=== PATIENT | female | born 2000 | race Caucasian/White ===

== ENCOUNTER 2023-09-18 13:49 | Emergency (ER) | payer MEDICAID, SELFPAY ==
[2023-09-18 13:51] VITALS: BP 128/79; PULSE 90; RESP 20; TEMP 36.5; O2SAT 96
[2023-09-18 13:59] VITALS: TEMP 37
--- NOTE | 2023-09-18 14:04 | W.ED.GENAD ---
Discharge Plan Disposition Patient Disposition: Home Discharge Details Clinical Impression: Pneumonia Primary Care Provider: Unknown,Unknown ED Provider: Jay Herrera Home Meds and New Rx's Prescriptions: New amoxicillin-pot clavulanate 875-125 mg tablet 1 tab PO BID 5 Days Qty: 10 0RF azithromycin 250 mg tablet See Rx Instructions .ROUTE .COMPLEX Qty: 6 0RF Rx Instructions: For 250 mg dose pack: take 500 mg today (day 1), then 250 mg for 4 days (days 2-5) ondansetron 4 mg tablet,disintegrating 4 mg PO Q8H PRN (Reason: nausea/vomiting) Qty: 14 0RF albuterol sulfate 90 mcg/actuation HFA aerosol inhaler 2 puff inhalation QID PRN (Reason: wheezing) Qty: 6.7 0RF No Action [id number] 1 mg tablet PO Discharge Instructions Instructions: Albuterol (By breathing), Amoxicillin/Clavulanate Potassium (By mouth), Azithromycin (By mouth), Ondansetron (By mouth), Pneumonia (ED) Additional Instructions: You were seen in the emergency department for your productive cough for over a week with some wheezing. I am treating you empirically for pneumonia with your productive cough, I have sent 2 different antibiotics Augmentin and azithromycin to take for 5 days, have also sent to nausea tablets 2-3 times per day have also sent showed inhaler to use for your wheezing. Please follow-up with your primary care provider, return to the emergency department for any increasing fever, cough, shortness of breath or respiratory distress despite treatment. Referrals: [facility] [Provider Group] (to establish primary care) [facility] [Provider Group] (to establish primary care) [facility] [place] Discharge Data Discharge Date/Time-TO BE ENTERED AT DEPARTURE: 09/18/23 15:50 Medical Decision Making This dictation utilizes [id number]-hb-ldgc dictation software and may contain unedited grammatical errors. 23 y/o F presents to ED today with a chief complaint of productive cough, wheezing. Onset and characteristics include 2 weeks of respiratory illness, denies severe shortness of breath, is a smoker, had one episode nausea/vomiting. Patients' medical history: tobacco use, denies asthma history. Family and social history: current smoker trying to cut back. Pertinent exam findings / vital signs include diffuse wheezing without hypoxia, no fever, nontachycardic on arrival- mild tachycardia at discharge but just completed 6mL albuterol nebulizer. Differential / pathologies of concern include pneumonia, bronchitis, asthma, not sepsis, not hypoxemic respiratory failure, not PE. Diagnostic studies of: -basic labs, hCG quant - held CXR as patient is . -leukocytosis, WBCs 16 Interventions of: -outpatient Rx trial after discussion with patients preferences and goals of treatment. -6mL duoneb ED Course: 2-week onset of respiratory infection with a productive cough with green sputum and wheezing in the setting of smoking, 1 episode of nausea and vomiting, wheezing improved with 6 mL DuoNeb, discussed with patient possibility for pneumonia and decided against chest or x-ray with a trial of dual antibiotic treatment for community-acquired pneumonia. Findings not consistent with hypoxemic respiratory failure, unlikely PE, patient has no chest pain, findings consistent with bacterial bronchitis or pneumonia with a productive cough with green sputum, patient prefers trial of antibiotics prior to the radiation but chest x-ray due to 12 weeks gestation. Given zofran and albuterol inhaler, Augmentin and azithromycin. Disposition of Pneumonia. Patient verbalized understanding of the plan and return to ED criteria and engaged in shared decision making. Medical Records Medical records reviewed: Yes I reviewed the patient's medical records. Lab Data Labs: Laboratory Tests Range/Units 09/18/23 14:28 WBC (4.4-10.8) 10^3/uL 16.71 H RBC (3.93-5.22) 10^6/uL 4.48 Hgb (11.2-15.7) g/dL 12.7 Hct (36.0-46.0) % 38.2 MCV (80-95) fL 85 MCH (27.0-33.0) pg 28.3 MCHC (32.0-36.0) % 33.2 RDW (11.7-14.6) % 12.5 Plt Count (130-400) 10^3/uL 250 MPV (8.0-11.0) fL 10.7 Immature Gran % 0.4 Neutrophils % 74.6 Lymphocytes % 17.3 Monocytes % 6.0 Eosinophils % 1.4 Basophils % 0.3 Nucleated RBC % (0.0-0.3) % 0.0 Absolute Neutrophils (1.2-6.7) 10^3/uL 12.47 H Absolute Lymphocytes (1.2-3.4) 10^3/uL 2.89 Absolute Monocytes (0.1-0.8) 10^3/uL 1.00 H Absolute Eosinophils (0.0-0.7) 10^3/uL 0.23 Absolute Basophils (0.0-0.2) 10^3/uL 0.05 Sodium (136-145) mmol/L 136 Potassium (3.5-5.1) mmol/L 3.1 L Chloride (98-107) mmol/L 101 Carbon Dioxide (21.0-32.0) mmol/L 25.9 Anion Gap (3-11) mmol/L 9.1 BUN (7-18) mg/dL 6 L Creatinine (0.55-1.02) mg/dL 0.7 Est GFR (CKD-EPI 2020) (mL/min/1.73m2) 123.01 Glucose (74-106) mg/dL 104 Calcium (8.5-10.1) mg/dL 9.0 Total Bilirubin (0.2-1.0) mg/dL 0.3 AST (15-37) U/L 10 L ALT (14-59) U/L 13 L Alkaline Phosphatase (46-116) U/L 83 Total Protein (6.4-8.2) g/dL 7.6 Albumin (3.4-5.0) g/dL 3.1 L Beta HCG, Quant (1-3) mIU/mL 54086 H HPI General Date/Time Provider Initiated Documentation: 09/18/23 14:04. HPI Narrative: 23 year-old female presents to ED today by POV/ambulating with a chief complaint of productive cough, green sputum, wheezing with onset almost two weeks ago. Quality described as chunky cough, denies severe shortness of breath, no radiation to high fever, chest pain, abdominal pain, endorses one episode nausea/vomiting, patient is 12 weeks . Severity is described as moderate/10. Palliating factors include nothing specific. Provoking factors include nothing specific. Events leading up to the incident/Associated Symptoms: Patient is vaccinated for Covid-19. Patient not anticoagulated. Related Data Home Medications Medication Instructions Recorded Confirmed albuterol sulfate 90 mcg/actuation 2 puff inhalation QID PRN wheezing 09/18/23 aerosol inhaler #6.7 grams amoxicillin 875 mg-potassium 1 tab PO BID pneumonia 5 days #10 09/18/23 clavulanate 125 mg tablet tabs azithromycin 250 mg tablet See Rx Instructions PO .COMPLEX #6 09/18/23 tabs ondansetron 4 mg disintegrating 4 mg PO Q8H PRN nausea/vomiting 09/18/23 tablet #14 tabs [id number] 1 mg tab PO 09/18/23 tablet Previous Rx's Medication Instructions Recorded albuterol sulfate 90 mcg/actuation 2 puff inhalation QID PRN wheezing 09/18/23 aerosol inhaler #6.7 grams amoxicillin 875 mg-potassium 1 tab PO BID pneumonia 5 days #10 09/18/23 clavulanate 125 mg tablet tabs azithromycin 250 mg tablet See Rx Instructions PO .COMPLEX #6 09/18/23 tabs ondansetron 4 mg disintegrating 4 mg PO Q8H PRN nausea/vomiting 09/18/23 tablet #14 tabs Allergies Allergy/AdvReac Type Severity Reaction Status Date / Time No Known Allergies Allergy Unverified 09/18/23 14:09 General Stated Complaint: RespSymp MALA: 3 Review of Systems All systems reviewed & are unremarkable except as noted in HPI and below PFSH All Active Problems Pneumonia (Acute) (Acute) Marijuana abuse (Acute) Smoker (Acute) Surgical History History of section Social History (Updated 08/05/23 @ 16:02 by Kari Tavera) Smoking/Tobacco Use Status: Current every day Tobacco Type: cigarettes Quit status: considering quitting Smoking risk assessment performed?: Yes Alcohol Intake: never Drug use: Daily Substance use type: marijuana Household members: spouse Housing: apartment 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 Sexually active: Yes Current gender identity: female What is your relationship status?: living with partner Panel score (0-1 are the most socially isolated patients): 1 What type of physical activity do you participate in: none Seatbelt use: always Helmet use: Yes Drive intox or ride w/intox car pick up driver: No Do you feel safe at home: Yes Do you feel safe in your relationship?: Yes Female Reproductive History Menstrual Age of Menarche: 10 Duration of menses: 3-5 days control method: none History History 1 Para 1 Hx # Term Pregnancies Multiple births Hx # Pregnancies Ectopic pregnancies AB induced Hx Number of Living Children AB spontaneous Past Pregnancies Del. Date GA/Weeks # Preg Succ Route Wgt Sex Labor Lgth Anesthesia Location Prov Complic 08/16/20 40 No Yes 3572.04 g Female LR Delivery Date: 08/16/20 Last Updated by: Arabella Garcia [employer] Exam Narrative Exam Narrative: GENERAL APPEARANCE: Well-nourished, non-toxic, awake and alert, atraumatic, no acute distress. SKIN: Warm, pink, dry, intact, without rashes/lesions/ulcerations. HEAD: Normocephalic, atraumatic, normal hair distribution for gender/age. EYES: Pupils PERRLA, EOMs intact without nystagmus, normal conjunctiva, no exudates on lids/lashes. ENT: Nares patent, no circumoral cyanosis, no facial swelling NECK: Supple, trachea midline, painless cervical ROM. LUNGS/CHEST: Lungs - wheezing diffusely inspir/expiratory, non-labored respirations, normal A/P diameter, symmetrical expansion, no chest wall deformity HEART (CV/PV): Regular rate and rhythm without murmur, no peripheral edema, no JVD. ABDOMEN: Soft, non-distended, no guarding, no tenderness. MSK: Normal ROM, no swelling/deformity to bilateral UEs or LEs, moving all extremities without weakness, no cyanosis, spine midline without tenderness, normal curvature. NEURO: Mental Status AAOx4 - alert to person, place, time, events No facial droop, no forehead involvement. Motor: No focal weakness - strength 5/5 in bilateral UEs and LEs, proximal and distal, symmetric. Sensory: sensation intact to light touch globally. Gait normal: patient ambulated without ataxia into ED room. PSYCH: euthymic, cooperative, pleasant, appropriate speech Course Vital Signs Vital signs: Vital Signs Temperature 36.5 C 09/18/23 13:51 Pulse 90 09/18/23 13:51 Respiratory Rate 20 09/18/23 13:51 Blood Pressure 128/79 09/18/23 13:51 Pulse Oximetry 96 09/18/23 13:51 Temperature 37.0 C 09/18/23 13:59 Temperature Source Temporal Artery Scan 09/18/23 13:59 Pulse 90 09/18/23 13:51 Respiratory Rate 20 09/18/23 13:51 Respiratory Effort Normal 09/18/23 13:59 Respiratory Depth Normal 09/18/23 13:59 Blood Pressure 128/79 09/18/23 13:51 Blood Pressure Position Sitting 09/18/23 13:51 Pulse Oximetry 96 09/18/23 13:51 Oxygen Delivery Method Room Air 09/18/23 13:51 Oxygen Flow Rate 0 09/18/23 13:51
[2023-09-18] MEDS: Albuterol/Ipratropium 3 ML UPD VIAL 6 ML UPD (14:25)
[2023-09-18] MEDS: Acetaminophen 500 MG TAB 1000 MG PO (14:25)
[2023-09-18] MEDS: Ondansetron O.D.T. 4 MG TABEF PO (14:32)
[2023-09-18 14:33] LABS: Abs Immature Grans 0.07 10^3/uL (0.0-0.06); Absolute Basophil Count 0.05 10^3/uL (0.0-0.2); Absolute Eosinophil Count 0.23 10^3/uL (0.0-0.7); Absolute Lymphocyte Count 2.89 10^3/uL (1.2-3.4); Basophils % 0.3; Eosinophils % 1.4; HCT 38.2 % (36.0-46.0); HGB 12.7 g/dL (11.2-15.7); Immature Grans % 0.4; Lymphocytes % 17.3; MCH 28.3 pg (27.0-33.0); MCHC 33.2 % (32.0-36.0); MCV 85 fL (80-95); MPV 10.7 fL (8.0-11.0); Neutrophils % 74.6; Platelet Count 250 10^3/uL (130-400); RBC 4.48 10^6/uL (3.93-5.22); RDW 12.5 % (11.7-14.6); RDW-SD 38.9 fL; WBC 16.71 10^3/uL (4.4-10.8)
[2023-09-18 14:36] LABS: Absolute Neutrophil Count 12.47 10^3/uL (1.2-6.7)
[2023-09-18 15:09] LABS: ALT 13 U/L (14-59); AST 10 U/L (15-37); Albumin 3.1 g/dL (3.4-5.0); Alkaline Phosphatase 83 U/L (46-116); Anion Gap 9.1 mmol/L (3-11); BUN 6 mg/dL (7-18); Bilirubin, Total 0.3 mg/dL (0.2-1.0); CO2 25.9 mmol/L (21.0-32.0); CREATININE 0.7 mg/dL (0.55-1.02); Chloride 101 mmol/L (98-107); Estimated GFR 123.01 (mL/min/1.73m2); Glucose 104 mg/dL (74-106); Potassium 3.1 mmol/L (3.5-5.1); Sodium 136 mmol/L (136-145); Total Protein 7.6 g/dL (6.4-8.2)
[2023-09-18 15:50] VITALS: BP 116/50; PULSE 120; RESP 22; O2SAT 92
== END 2023-09-18 15:50 | disposition home or self-care (01) ==
PROVIDERS: Emergency Provider Physician Assistant
DX: O98.511 Other viral diseases complicating pregnancy, first trimester (principal); J18.9 Pneumonia, unspecified organism
CPT/HCPCS: 80053; 99283; 84702; 85025; 99284; J7620

== ENCOUNTER 2023-09-24 02:00 | Outpatient (CLI) | payer MEDICAID, SELFPAY ==
[2023-09-24 15:02] LABS: Panorama Kit Sent via Fed Ex
[2023-09-24 15:17] LABS: Abs Immature Grans 0.08 10^3/uL (0.0-0.06); Absolute Basophil Count 0.05 10^3/uL (0.0-0.2); Absolute Lymphocyte Count 3.92 10^3/uL (1.2-3.4); Absolute Neutrophil Count 10.29 10^3/uL (1.2-6.7); Basophils % 0.3; Eosinophils % 1.4; HCT 37.8 % (36.0-46.0); HGB 12.6 g/dL (11.2-15.7); Immature Grans % 0.5; Lymphocytes % 25.4; MCH 28.8 pg (27.0-33.0); MCHC 33.3 % (32.0-36.0); MCV 87 fL (80-95); Monocytes % 5.8; Neutrophils % 66.6; Platelet Count 299 10^3/uL (130-400); RBC 4.37 10^6/uL (3.93-5.22); RDW 12.6 % (11.7-14.6); RDW-SD 39.9 fL; WBC 15.45 10^3/uL (4.4-10.8)
[2023-09-24 15:18] LABS: Absolute Eosinophil Count 0.22 10^3/uL (0.0-0.7)
[2023-09-24 15:33] LABS: Hemoglobin A1C 5.6 % (<5.7)
[2023-09-24 16:27] LABS: TSH (W/Ref FT4) 0.43 uIU/mL (0.36-3.74)
[2023-09-25 08:59] LABS: Hepatitis B Surface Ag Negative (Negative)
[2023-09-25 09:41] LABS: Hepatitis C Ab w Rflx HCV PCR Negative (Negative)
[2023-09-25 09:57] LABS: HIV-1/2 Ag & Ab Screen Negative (Negative)
[2023-09-25 11:36] LABS: Rubella IgG Ab (UVM) Positive (See Note); Varicella IgG Antibody Positive (See Note)
[2023-09-27 14:44] LABS: Syphilis IgG w/Reflex Nonreactive (Nonreactive)
[2023-10-02 16:37] LABS: Result Summary NEGATIVE; Specimen WB Whole Blood
== END 2023-09-24 02:01 | disposition home or self-care (01) ==
LOC: LBO 02:01
PROVIDERS: Visit Provider Advanced Practice Midwife
DX: Z34.91 Encounter for supervision of normal pregnancy, unspecified, first trimester
CPT/HCPCS: 36415; 81220; 81222; 86787; 86803; 86850; 86900; 86901; 87340; 87389; 83036; 84443; 85025; 86762; 86780

== ENCOUNTER 2023-09-24 15:07 | Outpatient (REF) | payer MEDICAID, SELFPAY ==
--- NOTE | 2023-09-24 14:00 | PAPFT_PTH ---
PATIENT: Jesu Faustin LOC: [facility] U#:[id number] AGE/SX: 23/F ROOM: RE09/24/[address]: Jo Bazan CNM : 2000 BED: DIS: 09/24/2023 SPEC #: [id number] RECD: 09/24/23 17:37 STATUS: GWEN REQ #: [id number] HIWOT: 09/24/23 14:[address]: Jo Bazan DEPT: [facility] Cytology RECD BY: Karlie Morales ENTERED: 09/24/23 17:37 SP TYPE: PAPFT COY DR: Unknown,Unknown Tissues: 1 - CX/ENDOCX FOR PAP SMEARS Procedures: PAP THIN PREP/UVM Screening HPV DNA PROBE Comments: (CHLAMYDIA/GC)
[2023-09-24 18:11] LABS: *AMPHETAMINES SCREEN URINE Negative (Negative); *BARBITURATES SCREEN URINE Negative (Negative); *BENZODIAZEPINES SCREEN URINE Negative (Negative); Cannabinoids THC Positive (Negative); Cocaine Screen,Urine Negative (Negative); METHADONE URINE SCREEN Negative (Negative); OPIATES URINE SCREEN Negative (Negative)
[2023-09-24 18:14] LABS: Tricyclic Antidepressants Negative (Negative)
[2023-09-25 14:49] LABS: Chlamydia Result Negative (Negative); GC Result Negative (Negative)
[2023-10-01 07:38] LABS: Buprenorphine Negative ng/mL (Cutoff: 5.0); Norbuprenorphine Negative ng/mL (Cutoff: 2.5)
== END 2023-09-24 15:08 | disposition home or self-care (01) ==
LOC: LBN 15:07
PROVIDERS: Visit Provider Advanced Practice Midwife
DX: Z34.91 Encounter for supervision of normal pregnancy, unspecified, first trimester; R82.89 Other abnormal findings on cytological and histological examination of urine
CPT/HCPCS: 80307; 80348; 87491; 87591; 88142; 87086; 87480; 87510; 87624; 87660

== ENCOUNTER → 2023-11-16 03:29 | Outpatient (CLI) | payer MEDICAID, SELFPAY ==
--- NOTE | 2023-11-16 07:30 | DI.US_ITS ---
Exam(s) US OB 2-3 TRIMESTER W MOD EXAM: US OB 2-3 TRIMESTER W MOD CLINICAL HISTORY: 19 wk anatomy survey,z34.90. TECHNIQUE: Transabdominal obstetrical ultrasound performed. COMPARISON: No exams were available for comparison FINDINGS: Number of fetuses: 1 position: VARIED heart rate: 151 bpm Placental location: POSTERIOR there is a grade 1 posterior placenta. The placental tip is 4.6 cm fr om the internal os. There is no evidence of previa. Amniotic fluid index: Amount of fluid is within normal limits. ANATOMICAL SURVEY: The four-chamber heart, right ventricular outflow tract and upper extremitie s were not well visualized on this examination. The patient is scheduled to follow-up on 11/23/2023. BIOMETRIC DATA: BPD: 4.49 cm, 19 weeks 4 days HC: 17.21 cm, 19 weeks 5 days AC: 15.08 cm, 20 weeks 2 days FL: 3.24 cm, 20 weeks 1 day Cisterna magna: 3.7 mm Cerebellum: 1.82 cm Lateral ventricle: 4.4 mm EFW: 335.43 g, 0.74 lb, 45.8 % Composite Age: 20 weeks 0 days GAVIN: 04/04/2024 Heart Rate: 151 bpm ANATOMICAL SURVEY: Four-chambered heart: Could not be well visualized on this examination. RVOT: Cannot be on this examination. Well visualized LVOT: Unremarkable. Left-sided stomach: Unremarkable. urinary bladder: Unremarkable. Bilateral kidneys: Unremarkable. Three-vessel cord: Unremarkable. Cord insertion: Unremarkable. Posterior fossa: Unremarkable. ventricles: Unremarkable. nose/lips: Unremarkable. Palate: Unremarkable. spine: Unremarkable. Two arms and two legs: The upper extremities cannot be well visualized on this examination. The lowe r extremities are unremarkable as visualized. IMPRESSION: 1. Single live intrauterine gestation as above. 2. Normal anatomic survey. Except the four-chamber heart, right ventricular outflow tract in t he upper extremities could not be well visualized. The patient is scheduled to return on 11/23/2023 f or completion of the anatomic survey. DATA REPOSITORY:
== END ==
PROVIDERS: Visit Provider Advanced Practice Midwife
DX: Z34.92 Encounter for supervision of normal pregnancy, unspecified, second trimester (principal)
CPT/HCPCS: 76805

== ENCOUNTER 2023-12-07 16:00 | Emergency (ER) | payer MEDICAID, SELFPAY ==
--- NOTE | 2023-12-07 16:00 | RT.EKG_ITS ---
APPROVED REPORT Exam: Resting ECG Reason for Exam: chest pain Patient Location: E HR:112 bpm ECG Measurements Heart Rate 112 AXIS NM 146 P 65 QRSd 86 QRS 76 QT 341 T 53 QTc 468 Conclusion Sinus tachycardia...rate> 99
[2023-12-07 16:06] VITALS: BP 114/68; PULSE 123; RESP 26; TEMP 37.2; O2SAT 96
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
[2023-12-07 16:30] LABS: Abs Immature Grans 0.07 10^3/uL (0.0-0.06); Absolute Basophil Count 0.05 10^3/uL (0.0-0.2); Absolute Eosinophil Count 0.17 10^3/uL (0.0-0.7); Absolute Lymphocyte Count 1.82 10^3/uL (1.2-3.4); Basophils % 0.4; Eosinophils % 1.4; HCT 37.2 % (36.0-46.0); HGB 12.3 g/dL (11.2-15.7); Immature Grans % 0.6; Lymphocytes % 15.2; MCHC 33.1 % (32.0-36.0); MCV 85 fL (80-95); MPV 10.6 fL (8.0-11.0); Monocytes % 7.3; Neutrophils % 75.1; Platelet Count 218 10^3/uL (130-400); RDW 13.2 % (11.7-14.6); RDW-SD 40.6 fL; WBC 11.98 10^3/uL (4.4-10.8)
[2023-12-07 16:33] LABS: ESR 44 mm/hr (0-20); Lactate 0.6 MMOL/l (0.9-1.7)
[2023-12-07 16:36] LABS: Absolute Monocyte Count 0.87 10^3/uL (0.1-0.8)
[2023-12-07] MEDS: Normal Saline 1,000 ML 1000 ML IV (16:51)
[2023-12-07] MEDS: Ondansetron 4 MG/2 ML VIAL IVP (16:52)
[2023-12-07] MEDS: Albuterol/Ipratropium 3 ML UPD VIAL UPD (16:52)
[2023-12-07 17:08] LABS: Procalcitonin < 0.1 ng/mL
[2023-12-07 17:23] LABS: ALT 17 U/L (14-59); AST 22 U/L (15-37); Albumin 2.8 g/dL (3.4-5.0); Alkaline Phosphatase 100 U/L (46-116); Anion Gap 12.9 mmol/L (3-11); BUN 7 mg/dL (7-18); Bilirubin, Total 0.2 mg/dL (0.2-1.0); C-Reactive Protein 2.08 mg/dL (<or=0.5); CO2 23.1 mmol/L (21.0-32.0); CREATININE 0.7 mg/dL (0.55-1.02); Calcium 9.3 mg/dL (8.5-10.1); Chloride 101 mmol/L (98-107); Estimated GFR 123.01 (mL/min/1.73m2); Glucose 88 mg/dL (74-106); Lipase 28 U/L (16-77); Magnesium 1.7 mg/dL (1.8-2.4); Potassium 3.6 mmol/L (3.5-5.1); Sodium 137 mmol/L (136-145); Total Protein 7.4 g/dL (6.4-8.2)
[2023-12-07 17:24] LABS: Troponin I < 50 ng/L (< or =60)
[2023-12-07 17:25] LABS: COVID-19 PCR Negative (Negative); Influenza A PCR Positive (Negative); Influenza B PCR Negative (Negative); RSV PCR Negative (Negative)
[2023-12-07 17:26] LABS: Source Nasopharynx
[2023-12-07] MEDS: Acetaminophen 325 MG TAB 650 MG PO (17:46)
[2023-12-07] MEDS: Magnesium Oxide 400 MG TAB PO (17:46)
[2023-12-07 17:52] LABS: Bilirubin Negative (Negative); Blood Negative (Negative); Clarity Sl Cloudy (Clear); Glucose Negative (Negative); Ketones 40 mg/dL (Negative); Leukocyte Esterase Negative (Negative); Nitrite Negative (Negative); Urobilinogen 0.2 mg/dL (Up to 0.2)
[2023-12-07] MEDS: Ondansetron O.D.T. 4 MG TABEF, 3 TABS/BTL PO (18:15)
== END 2023-12-07 18:17 | disposition home or self-care (01) ==
PROVIDERS: Emergency Provider Physician Assistant
DX: O99.512 Diseases of the respiratory system complicating pregnancy, second trimester (principal); J10.1 Influenza due to other identified influenza virus with other respiratory manifestations; O26.892 Other specified pregnancy related conditions, second trimester; R00.0 Tachycardia, unspecified; O99.332 Smoking (tobacco) complicating pregnancy, second trimester; F17.210 Nicotine dependence, cigarettes, uncomplicated; Z3A.23 23 weeks gestation of pregnancy
CPT/HCPCS: 80053; 83690; 84145; 85652; 87637; 93005; 94640; 96361; 96374; 99285; 81003; 83605; 83735; 84484; 85025; 86140; 93010; 99284; J2405; J7620

== ENCOUNTER → 2023-12-23 01:55 | Outpatient (CLI) | payer MEDICAID, SELFPAY ==
--- NOTE | 2023-12-23 08:15 | DI.US_ITS ---
Exam(s) US OB F/U FACIAL/LVOT/RVOT EXAM: US OB F/U FACIAL/LVOT/RVOT CLINICAL HISTORY: need to complete anatomy scan, specifically RVOT,z34.90. COMPARISON: US US OB 2-3 TRIMESTER W MOD from 11/16/2023 TECHNIQUE: Transabdominal obstetrical ultrasound performed. FINDINGS: heart rate motion is Dopplered at: 140 bpm. Four-chamber view of the heart, RVOT and LVOT appeared normal on today's exam. nose/lips: Unremarkable. Placenta: Posterior. Amount of amniotic fluid is visually within normal limits. IMPRESSION: Views of the heart are unremarkable. DATA REPOSITORY:
== END ==
PROVIDERS: Visit Provider Advanced Practice Midwife
DX: Z34.92 Encounter for supervision of normal pregnancy, unspecified, second trimester (principal); Z3A.25 25 weeks gestation of pregnancy
CPT/HCPCS: 76815

== ENCOUNTER 2023-12-26 10:36 | Emergency (ER) | payer MEDICAID, SELFPAY ==
[2023-12-26 10:43] VITALS: BP 96/36; PULSE 134; RESP 22; TEMP 37; O2SAT 100
--- NOTE | 2023-12-26 10:45 | RT.EKG_ITS ---
APPROVED REPORT Exam: Resting ECG Reason for Exam: tachycardia Patient Location: E HR:118 bpm ECG Measurements Heart Rate 118 AXIS IN 155 P 60 QRSd 85 QRS 57 QT 315 T 25 QTc 442 Conclusion Sinus tachycardia...rate> 99 sinus tachycardia, normal axis, normal intervals, non ischemic
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
[2023-12-26 11:18] LABS: Abs Immature Grans 0.08 10^3/uL (0.0-0.06); Absolute Basophil Count 0.03 10^3/uL (0.0-0.2); Absolute Eosinophil Count 0.04 10^3/uL (0.0-0.7); Absolute Lymphocyte Count 0.45 10^3/uL (1.2-3.4); Absolute Monocyte Count 0.59 10^3/uL (0.1-0.8); Absolute Neutrophil Count 8.25 10^3/uL (1.2-6.7); Basophils % 0.3; Eosinophils % 0.4; HCT 32.6 % (36.0-46.0); HGB 10.7 g/dL (11.2-15.7); Immature Grans % 0.8; Lymphocytes % 4.8; MCH 27.9 pg (27.0-33.0); MCHC 32.8 % (32.0-36.0); MCV 85 fL (80-95); Monocytes % 6.3; Neutrophils % 87.4; Platelet Count 178 10^3/uL (130-400); RBC 3.83 10^6/uL (3.93-5.22); RDW 13.7 % (11.7-14.6); RDW-SD 42.6 fL; WBC 9.44 10^3/uL (4.4-10.8)
[2023-12-26] MEDS: ACETAMINOPHEN 1,000 MG/100 ML BTL 400 MG IVPB (11:19)
[2023-12-26] MEDS: Normal Saline 1,000 ML 1000 ML IV (11:21)
[2023-12-26] MEDS: Ondansetron 4 MG/2 ML VIAL IVP (11:21)
[2023-12-26 11:31] LABS: PTT Activated 31.4 sec (23.6-32.8); Prothrombin Time 9.8 sec (9.1-11.1)
[2023-12-26 11:32] LABS: ALT 16 U/L (14-59); AST 19 U/L (15-37); Albumin 2.6 g/dL (3.4-5.0); Alkaline Phosphatase 91 U/L (46-116); Anion Gap 12.9 mmol/L (3-11); BUN 5 mg/dL (7-18); Bilirubin, Total 0.2 mg/dL (0.2-1.0); CO2 22.1 mmol/L (21.0-32.0); CREATININE 0.7 mg/dL (0.55-1.02); Calcium 8.5 mg/dL (8.5-10.1); Chloride 100 mmol/L (98-107); Estimated GFR 123.01 (mL/min/1.73m2); Glucose 89 mg/dL (74-106); Magnesium 1.5 mg/dL (1.8-2.4); Potassium 3.2 mmol/L (3.5-5.1); Sodium 135 mmol/L (136-145); Total Protein 6.9 g/dL (6.4-8.2)
[2023-12-26 12:06] VITALS: BP 94/40; PULSE 110; RESP 20; O2SAT 97
[2023-12-26 12:19] VITALS: BP 112/51; PULSE 118; RESP 16; O2SAT 97
[2023-12-26 12:55] LABS: Bilirubin Negative (Negative); Blood Negative (Negative); Clarity Clear (Clear); Glucose Negative (Negative); Ketones 40 mg/dL (Negative); Leukocyte Esterase Negative (Negative); Nitrite Negative (Negative); Urobilinogen 0.2 mg/dL (Up to 0.2)
== END 2023-12-26 13:53 | disposition home or self-care (01) ==
PROVIDERS: Emergency Provider Emergency Medicine
DX: O21.2 Late vomiting of pregnancy (principal); O26.892 Other specified pregnancy related conditions, second trimester; M54.50 Low back pain, unspecified; O99.332 Smoking (tobacco) complicating pregnancy, second trimester; F17.210 Nicotine dependence, cigarettes, uncomplicated; Z3A.25 25 weeks gestation of pregnancy
CPT/HCPCS: 80053; 82962; 93005; 96361; 96374; 96375; 99284; 81003; 83735; 85025; 85610; 85730; 93010; J0131; J2405

== ENCOUNTER 2024-03-11 14:25 | Outpatient (REF) | payer MEDICAID, SELFPAY | END 2024-03-11 14:26 | disposition home or self-care (01) | LOC: LBN 14:25 | PROVIDERS: Visit Provider Obstetrics & Gynecology | DX: Z34.90 Encounter for supervision of normal pregnancy, unspecified, unspecified trimester (principal); O99.820 Streptococcus B carrier state complicating pregnancy | CPT/HCPCS: 87081 ==

== ENCOUNTER 2024-03-28 04:52 | Outpatient (CLI) | payer MEDICAID, SELFPAY ==
[2024-03-28 10:47] LABS: HCT 32.2 % (36.0-46.0); HGB 10.2 g/dL (11.2-15.7); MCH 26.6 pg (27.0-33.0); MCHC 31.7 % (32.0-36.0); MCV 84 fL (80-95); MPV 10.5 fL (8.0-11.0); Platelet Count 279 10^3/uL (130-400); RBC 3.83 10^6/uL (3.93-5.22); RDW 13.7 % (11.7-14.6); RDW-SD 42.4 fL; WBC 12.86 10^3/uL (4.4-10.8)
[2024-03-28 11:25] LABS: Hemoglobin A1C 6.3 % (<5.7)
== END 2024-03-28 04:53 | disposition home or self-care (01) ==
LOC: LBO 04:52
PROVIDERS: Advanced Practice Midwife; Visit Provider Obstetrics & Gynecology
DX: O09.293 Supervision of pregnancy with other poor reproductive or obstetric history, third trimester; Z86.32 Personal history of gestational diabetes; Z01.818 Encounter for other preprocedural examination
CPT/HCPCS: 36415; 85027; 86850; 86900; 86901; 83036

== ENCOUNTER 2024-03-30 07:02 | Inpatient (IN) | payer MEDICAID, SELFPAY ==
[2024-03-30] VITALS (44 sets, daily range): BP systolic 92–110; BP diastolic 50–78; PULSE 61–89; RESP 16–20; TEMP 36.4–36.6; O2SAT 92–100; BMI 34.5
[2024-03-30] MEDS: AZITHROMYCIN 250 MG in Normal Saline 250 ML IVPB (08:14)
[2024-03-30] MEDS: Lactated Ringers 1,000 ML 200 ML IV (08:15)
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
[2024-03-30] MEDS: ceFAZolin 2 GM/50 ML BAG IVPB (09:55)
[2024-03-30] MEDS: Bupivacaine 0.25% Pres-Free 30 ML VIAL (10:05)
--- NOTE | 2024-03-30 10:53 | PDOC.OPNB_ITS ---
Date of service: 03/30/24 Time of Service: 10:53 Operative Note Operative Note Delivery Method: Scheduled and Repeat Previous LT Incision: Yes DATE OF PROCEDURE: 03/30/24 PRE-OP DIAGNOSES: Term intrauterine gestation, prior section, declines TOLAC POST-OP DIAGNOSES: same Dense adhesions of the anterior abdominal wall to the uterus PROCEDURE: Repeat low-transverse section with lysis of adhesions SURGEON: Nimco Holguin Assisting Surgeon: Trang Sykes Anesthesia: local and spinal Estimated blood loss (mL): 400 Pathology: none sent Complications: None Patient was transported to: floor Patient's condition: stable Indications: Prior section, declines trial of labor. Term intrauterine gestation Findings: Uterus densely adhered to the anterior abdominal wall. Delivery of viable male infant Procedure Description: After full informed consent was obtained, patient was taken the operating suite where she was placed in the seated position. Spinal anesthesia was administered, tested, and found to be adequate. She was then placed in the dorsal supine position with leftward tilt. heart tones were ascertained in the 120s. She was prepped and draped in the usual sterile fashion. She had pneumatic compression stockings for DVT prophylaxis. She had a vaginal preparation, and Grimes catheter inserted. She received 2 g of Ancef, and 500 mg of Zithromax for surgical site infection prophylaxis. Quarter percent Marcaine was used to infiltrate her previous abdominal scar. A Pfannenstiel skin incision was made and carried down to the underlying fascia. The fascia was incised in the midline and the fascial incision extended laterally. The fascia was then elevated and the rectus muscles were split in the midline. There is noted to be dense adhesions of the uterus to the anterior abdominal wall which were missed meticulously dissected in order to visualize the lower uterine segment. The vesicouterine peritoneum was pushed well below the planned surgical incision site and a bladder blade was inserted. A low transverse uterine incision was made with a scalpel and extended bluntly laterally. There is artificial rupture of membranes for clear fluid and the vertex was delivered without difficulty. There was no evidence of nuchal cord and the shoulders followed with ease. Three-vessel cord was noted clamped x 2 and cut and the was handed off to the waiting inspection and testing supervisor. At this point a segment for cord gases was set aside, and cord blood was obtained. At this point the placenta was manually expressed from the uterus and the uterus was unable to be exteriorized due to the adhesions to the intra-abdominal wall. With the uterus in situ, the uterine cavity was cleared of all clot and debris. The uterine incision was then closed using 0 Monocryl suture in a 2 layer fashion, first layer being running locked, second layer being imbricating. The uterine incision was inspected and noted to be hemostatic. The abdomen was then irrigated with copious amounts of normal saline and again the uterine incision noted to be hemostatic. The fascial incision was closed using 0 Vicryl suture in a running fashion. Subcutaneous tissue irrigated with copious amounts of normal saline and reapproximated with 3-0 Vicryl in a simple interrupted fashion. Skin edge was then reapproximated with 4-0 undyed Monocryl in subcuticular fashion. Mastisol, Steri-Strips and a sterile dressing were placed. Patient was taken back to the center in stable condition with a Grimes catheter draining clear yellow urine Complications: None apparent Findings: Delivery of a viable male infant. Dense adhesions of the uterus to the anterior abdominal wall. Normal palpation of ovaries and fallopian tubes bilaterally, without distinct visualization. Pathology: None sent Fluids: Crystalloid per anesthesia EBL: 400 mL.
[2024-03-30] MEDS: Ketorolac 30 MG/ML VIAL IVP (11:14)
--- NOTE | 2024-03-30 11:32 | W.ANESPOSTOP ---
Postoperative Evaluation Date, Time and Location Date Performed: 03/30/24 Time Performed: 11:32 Patient Location: Obstetrics Vital Signs Most Recent Imported Vital Signs: Most Recent Vital Signs Pulse Resp BP Pulse Ox 69 20 92/51 L 100 03/30/24 11:28 03/30/24 10:18 03/30/24 11:26 03/30/24 11:28 Assessment Mental Status: Awake (Alert & Oriented to Patient Baseline) Airway and Respiratory Function: Patent airway with normal (patient baseline) respiratory exam Cardiovascular Function: Hemodynamically Stable Hydration Status: Adequately Hydrated Nausea & Vomiting: No Nausea or Vomiting Pain: Pt. Denies Any Pain Peripheral Nerve Block: Patient did not receive a nerve block
[2024-03-30] MEDS: Lactated Ringers 1,000 ML 120 ML IV ×2 (14:35→23:09)
[2024-03-30] MEDS: Ondansetron 4 MG/2 ML VIAL IVP (16:07)
[2024-03-30] MEDS: Ketorolac 30 MG/ML VIAL 15 MG IVP ×2 (17:00→23:10)
[2024-03-31 04:08] VITALS: BP 107/64; PULSE 59; RESP 17; TEMP 36.6; O2SAT 99
[2024-03-31] MEDS: Ketorolac 30 MG/ML VIAL 15 MG IVP (05:37)
[2024-03-31 06:31] LABS: Absolute Eosinophil Count 0.18 10^3/uL (0.0-0.7); Absolute Neutrophil Count 12.86 10^3/uL (1.2-6.7); Basophils % 0.3 %; Eosinophils % 0.9 %; HCT 27.3 % (36.0-46.0); HGB 8.8 g/dL (11.2-15.7); Immature Grans % 0.5 %; Lymphocytes % 24.8 %; MCH 27.1 pg (27.0-33.0); MCHC 32.2 % (32.0-36.0); MCV 84 fL (80-95); Monocytes % 7.4 %; Neutrophils % 66.1 %; Platelet Count 281 10^3/uL (130-400); RBC 3.25 10^6/uL (3.93-5.22); RDW 13.7 % (11.7-14.6); RDW-SD 42.5 fL; WBC 19.45 10^3/uL (4.4-10.8)
[2024-03-31 06:35] LABS: Absolute Basophil Count 0.06 10^3/uL (0.0-0.2); Absolute Lymphocyte Count 4.82 10^3/uL (1.2-3.4); Absolute Monocyte Count 1.44 10^3/uL (0.1-0.8)
[2024-03-31 07:54] VITALS: BP 105/50; PULSE 75; RESP 16; TEMP 36.6; O2SAT 100
[2024-03-31] MEDS: Normal Saline Flush 10 ML SYR IVP (08:30)
[2024-03-31] MEDS: Acetaminophen 325 MG TAB 650 MG PO ×2 (10:50→20:59)
[2024-03-31] MEDS: Ibuprofen 600 MG TAB PO ×2 (10:51→18:28)
[2024-03-31] MEDS: Docusate Sodium 100 MG CAP PO (10:51)
--- NOTE | 2024-03-31 12:48 | W.PM.OBPNV1 ---
Date of service: 03/31/24 Time of Service: 12:20 Assessment and Plan Assessment and plan (1) Status post repeat low transverse section: Status: Acute Assessment and plan: POD#1 s/p RCS, doing well. No significant concerns. Routine care. Likely d/c home tomorrow. Will circ baby this afternoon. Exam Physical Exam Vital signs: Temp Pulse Resp BP Pulse Ox 97.9 F 75 16 105/50 L 100 03/31/24 07:54 03/31/24 07:54 03/31/24 07:54 03/31/24 07:54 03/31/24 07:54 Vital Signs Reviewed: Yes Constitutional Constitutional: no acute distress and cooperative Detailed HEENT Exam Head: Present normocephalic and atraumatic Respiratory Exam Respiratory Exam: Normal Abdominal Exam Abdomen: Tender (mildly) Comments: Dressing clean, dry Fundal Exam Fundus: Below Umbilicus and Firm Extremities Exam Extremity Exam: Edema (trace) Detailed Neurological Exam Neurological: Present alert, oriented X3 and CN II-XII intact Results Hemoglobin/Hematocrit: Hgb 8.8 g/dL (11.2-15.7) L 03/31/24 06:14 Hct 27.3 % (36.0-46.0) L 03/31/24 06:14 Abnormal Lab Findings: Abnormal Labs 03/31/24 06:14 WBC 19.45 H RBC 3.25 L Hgb 8.8 L Hct 27.3 L Absolute Neutrophils 12.86 H Absolute Lymphocytes 4.82 H Absolute Monocytes 1.44 H
[2024-03-31 13:00] VITALS: BP 113/57; PULSE 74; RESP 17; TEMP 36.9; O2SAT 99
[2024-03-31] MEDS: oxyCODONE 5 mg/Acetaminophen 325 mg TAB PO ×2 (13:00→16:19)
[2024-03-31 16:00] VITALS: BP 119/68
--- NOTE | 2024-03-31 16:31 | OBPPV_ITS ---
Date of service: 03/31/24 Time of Service: 16:31 Assessment and Plan Assessment and plan (1) Headache: Status: Acute Assessment and plan: I recommended patient take the oxycodone with acetaminophen. Dion Mcgowan CRNA has been notified and will evaluate the pt. Subjective Subjective Interval history: POD1 RC/S without complications. Pt reports H/A beginning later in the morning. States is originates in back of head and moved to front along her scalp to her forehead. No improvement with Toradol, Acetaminophen. No N/V. Patient comments: Incisional pain and Tolerating diet baby status: Rooming in Exam Physical Exam Vital signs: Temp Pulse Resp BP Pulse Ox 98.4 F 74 17 119/68 99 03/31/24 13:00 03/31/24 13:00 03/31/24 13:00 03/31/24 16:00 03/31/24 13:00 Vital Signs Reviewed: Yes Narrative: No nausea patient denies vision changes Constitutional Constitutional: mild distress (tearful after moving back to bed from toilet) Detailed HEENT Exam Head: Present normocephalic Comments: Focal tenderness along occiput and scalp. Unclear if there is a postural component to the patient's pain Neck Exam Neck Exam: Normal Detailed Neck Exam Neck exam general surgery: Present supple Respiratory Exam Respiratory Exam: Normal Abdominal Exam Comments: Residual discomfort 1 patient was placed in dorsal supine position from Semi- Elias's Extremities Exam Extremity Exam: Normal Neurological Exam Neurological Exam: Normal Psychiatric Exam Psychiatric Exam: Normal Results Hemoglobin/Hematocrit: Hgb 8.8 g/dL (11.2-15.7) L 03/31/24 06:14 Hct 27.3 % (36.0-46.0) L 03/31/24 06:14 Abnormal Lab Findings: Abnormal Labs 03/31/24 06:14 WBC 19.45 H RBC 3.25 L Hgb 8.8 L Hct 27.3 L Absolute Neutrophils 12.86 H Absolute Lymphocytes 4.82 H Absolute Monocytes 1.44 H
--- NOTE | 2024-03-31 17:20 | PDOC.ANES ---
Date of service: 03/31/24 Time of Service: 17:20 Anesthesia Note Report Anesthesia Note: Asked to see Theano regarding her headache after spinal anesthesia on 03/30/24. Today she has 8/10 headache with photophobia. Her room is dark and she is sitting in a chair and conversive. No definitive postural changes described by patient or nursing. Pt. has received some pain medicine with slight improvement. She denies back pain/bowel or bladder dysfunction. Given that she is ambulating, I encouraged rest, fluids and caffeine if desired. I explained that even if this were a spinal headache, at this point we would be very conservative in the management which she understands. She has had migraines in the past. I advised someone from anesthesia will come up and reassess her tomorrow.
[2024-03-31 19:30] VITALS: BP 118/70; PULSE 76; RESP 17; TEMP 36.9; O2SAT 99
[2024-04-01] MEDS: Ibuprofen 600 MG TAB PO ×3 (00:03→13:30)
[2024-04-01] MEDS: oxyCODONE 5 mg/Acetaminophen 325 mg TAB PO ×4 (01:08→13:30)
--- NOTE | 2024-04-01 07:52 | PDOC.ANES ---
Anesthesia Note Report Anesthesia Note: 23 yo female 2 days post c/o headaches and photophobia since delivery of baby.. Pt has a history of migraines and lower back issues/pain. Pt describes similar symptoms after her daughter was delivered. Pt states that headache is improved this morning. Pt encouraged to keep up on fluid intake and continue caffeine levels similar to pre-delivery (was consuming coke products). Pt has not had any fevers and was instructed to call hospital if she develops a fever. Conveyed that treatment would be conservative with pushing fluid and caffeine. Angel Faye, CARDIOLOGY CLINICAL NURSE SPECIALIST
[2024-04-01 07:55] VITALS: BP 113/67; PULSE 56; RESP 17; TEMP 36.8; O2SAT 100
--- NOTE | 2024-04-01 07:58 | OBPPV_ITS ---
Date of service: 04/01/24 Time of Service: 07:58 Assessment and Plan Assessment and plan (1) Status post repeat low transverse section: Status: Acute Assessment and plan: Postoperative day #2 status post repeat low-transverse section. Overall doing well. Some cephalgia. Stable vital signs. Patient desires discharge home today. Reserve circumcision requested. All questions answered. Discharge home and follow-up in the office in 2, 6, and 1 week for dressing change. All questions answered Subjective Subjective Interval history: Patient seen and examined this morning. Vital signs are reviewed and are stable. Patient is having some headaches which she reports has pain at the base of her neck which radiate to the top of her head. She has been evaluated by anesthesia. She has had a history of migraines after her last delivery which are similar in nature but not as bad today. We did encourage rest, caffeine, hydration, pain medication. Will continue to monitor. Patient is hoping for discharge today. Exam Physical Exam Vital signs: Temp Pulse Resp BP Pulse Ox 98.4 F 76 17 118/70 99 03/31/24 19:30 03/31/24 19:30 03/31/24 19:30 03/31/24 19:30 03/31/24 19:30 Vital Signs Reviewed: Yes Constitutional Constitutional: no acute distress HEENT Exam HEENT Exam: Normal Neck Exam Neck Exam: Normal Respiratory Exam Respiratory Exam: Normal Cardiovascular Exam Cardiovascular Exam: Normal Abdominal Exam Abdomen: Tender Comments: Mepilex dressing in place Fundal Exam Fundus: Below Umbilicus and Firm Extremities Exam Extremity Exam: Normal and Edema (1+ bilateral); negative Calf Tenderness Skin Exam Skin Exam: Normal Neurological Exam Neurological Exam: Normal Psychiatric Exam Psychiatric Exam: Normal Results Hemoglobin/Hematocrit: Hgb 8.8 g/dL (11.2-15.7) L 03/31/24 06:14 Hct 27.3 % (36.0-46.0) L 03/31/24 06:14 Abnormal Lab Findings: Abnormal Labs 03/31/24 06:14 WBC 19.45 H RBC 3.25 L Hgb 8.8 L Hct 27.3 L Absolute Neutrophils 12.86 H Absolute Lymphocytes 4.82 H Absolute Monocytes 1.44 H
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
[2024-04-01 13:00] VITALS: BP 114/72; PULSE 68; RESP 18; TEMP 36.9
== END 2024-04-01 16:00 | disposition home or self-care (01) | DRG 787 ==
PROVIDERS: Admitting Provider Obstetrics & Gynecology; Visit Provider Obstetrics & Gynecology
PROC: 10D00Z1 Extraction of Products of Conception, Low, Open Approach (ICD-10-PCS; CPT 59514; principal; 2024-03-30 09:15)
DX: O34.211 Maternal care for low transverse scar from previous cesarean delivery (principal); O99.354 Diseases of the nervous system complicating childbirth; Z37.0 Single live birth; Z3A.39 39 weeks gestation of pregnancy; N73.6 Female pelvic peritoneal adhesions (postinfective); O99.892 Other specified diseases and conditions complicating childbirth; G43.909 Migraine, unspecified, not intractable, without status migrainosus
CPT/HCPCS: 59514; 36415; 85025; J0456; J0665; J0690; J1100; J1885; J2274; J2371; J2405; J3010

== ENCOUNTER 2024-11-17 15:21 | Emergency (ER) | payer MEDICAID, SELFPAY ==
[2024-11-17 15:43] VITALS: BP 100/68; PULSE 94; RESP 20; TEMP 36.8; O2SAT 93
--- NOTE | 2024-11-17 15:45 | RT.EKG_ITS ---
APPROVED REPORT Exam: Resting ECG Reason for Exam: Chest Pain Patient Location: E HR:85 bpm ECG Measurements Heart Rate 85 AXIS WI 168 P 33 QRSd 82 QRS 34 QT 339 T 28 QTc 403 Conclusion Sinus rhythm, rate 85 No interval abnormalities No STEMI No priors available for comparison
--- NOTE | 2024-11-17 15:45 | DI.RAD_ITS ---
Exam(s) XR CHEST 2V PA LATERAL EXAM: XR CHEST 2V PA LATERAL CLINICAL HISTORY: cough TECHNIQUE: 2D digital imaging was performed. Two views. COMPARISON: No exams were available for comparison FINDINGS: HEART: Normal size. Aorta: Not dilated. PULMONARY VASCULATURE: Normal. MEDIASTINUM: Unremarkable. LUNGS: Clear. PLEURAL SPACE: No pleural effusion or pneumothorax. BONE:Unremarkable for age. SOFT TISSUES: Unremarkable. IMPRESSION: No acute abnormality. DATA REPOSITORY: RADIATION DOSE DELIVERED:
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
[2024-11-17 16:15] VITALS: RESP 18
[2024-11-17 16:17] VITALS: RESP 18; RESP 5
[2024-11-17] MEDS: Acetaminophen 500 MG TAB 1000 MG PO (16:17)
[2024-11-17] MEDS: Albuterol/Ipratropium 3 ML UPD VIAL UPD (16:17)
[2024-11-17] MEDS: Ibuprofen 400 MG TAB PO (16:18)
[2024-11-17 16:47] LABS: COVID-19 PCR Negative (Negative); Influenza A PCR Negative (Negative); Influenza B PCR Negative (Negative); RSV PCR Negative (Negative)
[2024-11-17 16:48] LABS: Source Nasopharynx
[2024-11-17] MEDS: Albuterol HFA 8 GM 60 PUFF INH IH (17:37)
[2024-11-17 17:38] VITALS: BP 105/55; PULSE 91; RESP 18; O2SAT 95
[2024-11-17] MEDS: Inhaler, Assist Device 1 EACH MC (17:38)
--- OUTSIDE RECORDS SUMMARY | 2024-11-17 17:43 | XMS_ITS | Encounter Summary ---
Author Organization [facility] Address [address] [place] [address] Care Team Providers Care Lobbyist Name Role Phone Unavailable Primary Care Provider Unavailabl e Encounter Details Date Type Department Care Team (Late st Contact Info) Description 09/25/2023 Lab Requisition [facility] Pathology & Laboratory Medicine - [facility] [address] [place] [address] [place], [place] [id number] Encounter for other general examination Social History Tobacco Use Types Packs/Day Years Used Date Smoking Tobacco: Never Assessed Comments Unknown Sex and Gender Information Value Date Recorded Sex Assigned at Not on file Legal Sex Female 16:20 EST Gender Identity Not on file Sexual Orientation Not on file documented as of this encounter Plan of Treatment Not on file documented as of this encounter Procedures Procedure Name Priority Date/Time Associated Diagnosis Comments PAP TEST Today 09/24/2023 14:00 EST Encounter for other general examination HPV DNA DETECTION WITH GENOTYPING, PCR Today 09/24/2023 14:00 EST Encounter for other general examination documented in this encounter Results * HUMAN PAPILLOMAVIRUS (HPV) DETECTION-HIGH RISK TYPES (09/24/2023 14:00 EST) HPV other High Risk types, PCR Negative Negative 10/05/2023 16:13 EST [facility] Comment:No E6 or E7 mRNA is detected from HPV types 16,18,31,33,35,39,45,51,52,56,58,59,66, and 68 by senior health physics technician mediated amplification. Pap Test CERVIX UTERI STRUCTURE / Unknown 09/24/2023 14:00 EST 10/02/2023 13:21 EST Jo Bazan CNM MICROBIOLOGY - GENERAL ORDERA BLES Final Result Performing Organization Address City/[facility]/ZIP Co de Phone Number [facility] [address] [place] [address] * PAP TEST (09/24/2023 14:00 EST) Specimens A. Cervix and/or Endocervix , ThinPrep Imaging System with Manual Evaluation 10/05/2023 16:13 [facility] Specimen Adequacy Satisfactory for Evaluation - transformation zone component present 10/05/2023 16:13 [facility] General Categorization Negative for intraepithelial lesion or malignancy 10/05/2023 16:13 [facility] Attestation . 10/05/2023 16:13 [facility] at 1613 Clinical History SEE BELOW 10/05/20 23 16:13 [facility] HPV The result for the Human Papillomavirus (HPV) Detection-High Risk Types is Negative. No E6 or E7 mRNA is detected from HPV types 16,18,31,33,35,39 ,45,51,52,56,58,5 9,66, and 68 by senior health physics technician mediated amplification.Steph ting was performed on specimen [id number] and was resulted on 10/05/2023 1613 EST by RAIMUNDO, LAB INSTRUMENT RESULTS IN 10/05/2023 16:13 EST [facility] Performing Lab [facility] 10/05/2023 16:13 [facility] Scanned Images 10/05/2023 16:13 [facility] Pap Test CERVIX UTERI STRUCTURE / Unknown 09/24/2023 14:00 EST 09/25/2023 13:50 EST Jo Bazan CNM PATHOLOGY ORDERABLES Final Re sult Performing Organization Address City/[facility]/ZIP Co de Phone Number [facility] [address] [place] [address] documented in this encounter Visit Diagnoses Diagnosis Encounter for other general examination documented in this encounter
--- OUTSIDE RECORDS SUMMARY | 2024-11-17 17:43 | XMS_ITS | Encounter Summary ---
Author Organization [facility] Address [address] [place] [address] Care Team Providers Care College Hire Name Role Phone Tray Faustin MD Primary Care Provider [phone] Encounter Details Date Type Department Care Team (Late st Contact Info) Description 11/11/2021 [facility] Historical Encounter [facility] CC AMB HISTORICAL Historical Provider, Hsp Social History Tobacco Use Types Packs/Day Years Used Date Smoking Tobacco: Former Smokeless Tobacco: Never Tobacco Cessation:Ready to Q uit: Yes; Counseling Given: No Alcohol Use Standard Drinks/Week Comments No 0 (1 standard drink = 0.6 oz pur e alcohol) Sex and Gender Information Value Date Recorded Sex Assigned at Female 12/25/2021 12:53 AM EST Gender Identity Female 12/25/2021 12:53 AM EST Sexual Orientation Bisexual 12/25/2021 12 :53 AM EST documented as of this encounter Plan of Treatment Not on file documented as of this encounter Visit Diagnoses Not on filedocumented in this encounter Care Teams College Hire Relationship Specialty Start Date End Date Tray Faustin MD PCP - General 01/18/21 documented as of this encounter
--- OUTSIDE RECORDS SUMMARY | 2024-11-17 17:43 | XMS_ITS | Encounter Summary ---
Author Organization [facility] Address [address] [place] [address] Care Team Providers Care Auricular Acupuncturist Name Role Phone Tray Faustin MD Primary Care Provider [phone] Encounter Details Date Type Department Care Team (Late st Contact Info) Description 10/31/2021 [facility] Historical Encounter [facility] [place] [address] [place] [address] Social History Tobacco Use Types Packs/Day Years Used Date Smoking Tobacco: Never Assessed Sex and Gender Information Value Date Recorded Sex Assigned at Female 12/25/2021 12:53 AM EST Gender Identity Female 12/25/2021 12:53 AM EST Sexual Orientation Bisexual 12/25/2021 12 :53 AM EST documented as of this encounter Progress Notes * Jeffy Singleton MD - 10/31/2021 11:59 PM EST No additional comment documented in this encounter Plan of Treatment Not on file documented as of this encounter Procedures Procedure Name Priority Date/Time Associated Diagnosis Comments H PYLORI AG, STOOL Routine 10/31/2021 11 :11 AM EST documented in this encounter Results * H PYLORI AG, STOOL (10/31/2021 11:11 AM EST) Site STOOL 11/04/2021 10:36 AM EST [facility] H. Pylori Stool Ag,EIA Negative Negative 11/04/2021 10:36 AM EST [facility] Comment: (NOTE) Performed At: [facility] [address] [id number] David Hadley MD Ph:[phone] STOOL SPECIMEN / Unknown 10/31/2021 11:11 AM EST 11/01/2021 11:30 AM EST Jeffy Singleton MD CHEMISTRY ORDERABLES [facility] Naomi Leone, Industrial Trainer [address] [place] [id number] documented in this encounter Visit Diagnoses Not on filedocumented in this encounter Care Teams Auricular Acupuncturist Relationship Specialty Start Date End Date Tray Faustin MD PCP - General 01/18/21 documented as of this encounter
--- OUTSIDE RECORDS SUMMARY | 2024-11-17 17:43 | XMS_ITS | Encounter Summary ---
Author Organization [facility] Address [address] [place] [id number] Care Team Providers Care Construction Estimator Name Role Phone Unavailable Primary Care Provider Unavailabl e Encounter Details Date Type Department Care Team (Late st Contact Info) Description 09/24/2023 Lab Requisition [facility] Pathology & Laboratory Medicine - [facility] [address] [place], [place] [address] Outr Resulting Lab, Provider Social History Tobacco Use Types Packs/Day Years [...] Procedure Name Priority Date/Time Associated Diagnosis Comments HIV 1/2 ANTIGEN AND ANTIBODY, 4TH GENERATION Routine 09/24/2023 14:55 EST documented in this encounter Results * HIV 1/2 ANTIGEN AND ANTIBODY, 4TH GENERATION (09/24/2023 14:55 EST) HIV 1 and 2 Antibody/p24 Antigen, 4th Generation Negative Negative 09/25/2023 9:52 EST [facility] Comment:If acute HIV-1 infec tion is suspected in a high risk patient, submit plasma specimen for HIV-1 RNA quantitation test. Blood VENOUS BLOOD / Unknown 09/24/2023 14:55 EST 09/24/2023 22:00 EST Narrative [facility] - 09/25/2023 9:52 EST Fourth Generation assay performed on the Siemens Centaur XPT. us Provider Outr Resulting Lab IMMUNOLOGY AND SEROL OGY ORDERABLES Final Result [facility] [address] [place] [address] documented in this encounter Visit Diagnoses Not on filedocumented in this encounter
--- OUTSIDE RECORDS SUMMARY | 2024-11-17 17:43 | XMS_ITS | Clinical Summary ---
Author Organization [facility] 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, temporal, followed at [facility] by Scott Iglesias M.D.Ophthalmology, PGY-2, to see genetics in May 2019 Gastroesophageal reflux disease 12/09/2018 Dermatofibroma 12/01/2018 Mood disorder 12/01/2018 Bandemia 12/01/2018 Marijuana use, continuous 12/01/2018 ADHD (attention deficit hyperactivity disorder) 06/20/2014 Cough variant asthma 08/13/2011 AR (allergic rhinitis) 08/13/2011 IBS (irritable bowel syndrome) 03/04/2011 Immunizations Name Administration Dates Next Due DTaP vaccine 01/14/2003, 9,1998,1997,1998 HPV Quadrivalent (Gardasil) 07/25/2015, 4,02/28/2014 Hep A, HAVRIX, VAQTA, (age 1 2m-18y), IM, 0.5mL 06/20/2014,02/28/2014 Hepatitis B vaccine 1998,1998,1997 Hib vaccine 08/27/1999, 9,1998,1997 MMR, PRIORIX, M-M-R II, (age 12m+), SC, 0.5mL 01/14/2003,08/27/1999 Poliovirus, IPOL, (age 6w+), SC/IM, 0.5mL 01/14/2003,01/10/2002,1998,1997 TDaP, ADACEL (age 10y-64y), BOOSTRIX (age 10y+), IM, 0.5mL 03/10/2008 Varicella, VARIVAX, (age 12m +), SC, 0.5mL 10/22/2009,04/03/2003 Family History Medical History Relation Name Comments No Known Problems Brother 1 No Known Problems Brother 2 No Known Problems Brother 3 No Known Problems Brother 4 No Known Problems Father No Known Problems Maternal Grandfather Thyroid Disease Maternal Grandmother Mult Sclerosis Maternal Uncle Other Mother hep c, mood dis order No Known Problems Paternal Grandfather No Known Problems Paternal Grandmother No Known Problems Sister Relation Name Status Comments Brother 1 Alive Brother 2 Alive Brother 3 Alive Brother 4 Alive Father Alive Maternal Grandfather Alive Maternal Grandmother Alive Maternal Uncle Mother Alive Paternal Grandfather Paternal Grandmother Sister Alive Social History Tobacco Use Types Packs/Day Years Used Date Smoking Tobacco: Former Smokeless Tobacco: Never Alcohol Use Standard Drinks/Week Comments No 0 (1 standard drink = 0.6 oz pur e alcohol) Sex and Gender Information Value Date Recorded Sex Assigned at Female 12/25/2021 12:53 AM EST Gender Identity Female 12/25/2021 12:53 AM EST Sexual Orientation Bisexual 12/25/2021 12 :53 AM EST Last Filed Vital Signs Vital Sign Reading Time Taken Comments Blood Pressure 103/68 10/29/2021 1:39 PM EST Pulse 92 10/29/2021 1:39 PM EST Temperature - - Respiratory Rate - - Oxygen Saturation - - Inhaled Oxygen Concentration - - Weight 90.3 kg (199 lb) 10/29/2021 1:39 PM EST Height 165.1 cm (5' 5) 10/29/2021 1:39 PM EST Body Mass Index 33.12 10/29/2021 1:39 PM EST Plan of Treatment Not on file Procedures Procedure Name Priority Date/Time Associated Diagnosis Comments HIV 1/2 AB, BY IMMUNOBLOT Routine 10/31/2015 10:58 AM EST from Last 3 Months or Most Recently Relevant to Health Maintenance Results * HIV 1/2 AB, BY IMMUNOBLOT (10/31/2015 10:58 AM EST) HIV 1/O/2 Abs-Index Value <1.00 <1.00 11/02/2015 10:35 PM EST [facility] Comment:Index Value: Specime n reactivity relative to the negative cutoff. HIV 1/O/2 Abs, Qual Non Reactive Non Reactive 11/02/2015 10:35 PM EST [facility] 1 Blood 10/31/2015 10:5 8 AM EST 10/31/2015 4:49 PM EST Barbara El CAPACITY PLANNING MANAGER - INJECTION MOLDING SUPERVISOR CHEMISTRY ORDERABLES [facility] 1 from Last 3 Months or Most Recently Relevant to Health Maintenance Care Teams Manager Speech Relationship Specialty Start Date End Date Tray Faustin MD PCP - General 01/18/21
--- OUTSIDE RECORDS SUMMARY | 2024-11-17 17:43 | XMS_ITS | Clinical Summary ---
Author Organization [facility] Address [address] [place] [id number] Care Team Providers Care Manager Career Name Role Phone Unavailable Primary Care Provider Unavailabl e Social History Tobacco Use Types Packs/Day Years Used Date Smoking Tobacco: Never Assessed Comments Unknown Sex and Gender Information Value Date Recorded Sex Assigned at Not on file Legal Sex Female 16:20 EST Gender Identity Not on file Sexual Orientation Not on file Plan of Treatment Health Maintenance Due Date Last Done Comments Hepatitis B Vaccine (1 of 3 - 19+ 3-dose series) 05/11 COVID-19 Vaccine ( season) 2024 Hepatitis C Screen Completed 09/24/2023 Procedures Procedure Name Priority Date/Time Associated Diagnosis Comments HEPATITIS C AB W REFLEX TO HCV RNA BY PCR Routine 09/24/2023 14:55 EST from Last 3 Months or Most Recently Relevant to Health Maintenance Results * HEPATITIS C AB W REFLEX TO HCV RNA BY PCR (09/24/2023 14:55 EST) Hep C Antibody Negative Negative 09/25/2023 9:35 EST [facility] Blood VENOUS BLOOD / Unknown 09/24/2023 14:55 EST 09/24/2023 22:00 EST us Provider Outr Resulting Lab CHEMISTRY & BLOOD GA S ORDERABLES Final Result [facility] [address] [place] [address] from Last 3 Months or Most Recently Relevant to Health Maintenance
--- OUTSIDE RECORDS SUMMARY | 2024-11-17 17:43 | XMS_ITS | Encounter Summary ---
Author Organization [facility]ito Hilliardmiguel[facility] Address [address] [place] [address] Care Team Providers Care Field Appraiser Name Role Phone Tray Faustin MD Primary Care Provider Encounter Details Date Type Department Care Team (Late st Contact Info) Description 01/17/2021 Office Visit [facility] [address] [place] [address] Tray Faustin MD [address] [place], [place] [id number] Encounter for general adult medical examination without abnormal findings (Primary Dx); Encounter for screening for diabetes mellitus; Encounter for screening for lipoid disorders; Family history of other endocrine, nutritional and metabolic diseases; Unspecified mood (affective) disorder (HCC) Social History Tobacco Use Types Packs/Day Years Used Date Smoking Tobacco: Never Assessed Sex and Gender Information Value Date Recorded Sex Assigned at Female 12/25/2021 12:53 AM EST Gender Identity Female 12/25/2021 12:53 AM EST Sexual Orientation Bisexual 12/25/2021 12 :53 AM EST documented as of this encounter Last Filed Vital Signs Vital Sign Reading Time Taken Comments Blood Pressure 93/61 01/17/2021 3:41 PM EDT Pulse 93 01/17/2021 3:41 PM EDT Temperature - - Respiratory Rate - - Oxygen Saturation - - Inhaled Oxygen Concentration - - Weight 99.8 kg (220 lb) 01/17/2021 3:41 PM EDT Height 165.1 cm (5' 5) 01/17/2021 3:41 PM EDT Body Mass Index 36.61 01/17/2021 3:41 PM EDT documented in this encounter Progress Notes * Historical Provider, Brittani - 01/17/2021 3:45 PM EDT Chief Complaint Patient presents with ??? Complete Physical ??? Other Requesting Thyroid testing 1. Have you been to the ER, urgent care clinic since your last visit? Hospitalized since your last visit?No 2. Have you seen or consulted any other health care providers outside of the [facility] since your last visit? Include any pap smears or colon screening. No * Tray Faustin MD - 01/17/2021 3:45 PM EDT Dear Ms. Faustin, I wanted to follow up on your recent test results: Cholesterol is high. Hemoglobin A1C (average blood sugar level for past 3 months) is in the pre diabetes range, which means your average sugar or glucose level is higher than normal. I would encourage healthy food choices and regular exercise with the goal of maintaining a healthy weight before starting medications for this. Other labs are normal. * Tray Faustin MD - 01/17/2021 3:45 PM EDT Patient Name: Jesu Faustin SUBJECTIVE Jesu Faustin is a 20 y.o. female who presents with the following: Transferring care from prior PCP Dr. Dick. Cervical Cancer Screening: had one last year per pt report (normal). CAD risk factors: HTN: wnl BP Readings from Last 3 Encounters: 01/17/21 93/61 11/19/20 118/74 12/20/19 131/75 Lipid: due Lab Results Component Value Date/Time Cholesterol, total 219 (H) 01/17/2021 04:19 PM HDL Cholesterol 34 01/17/2021 04:19 PM LDL, calculated 134 (H) 01/17/2021 04:19 PM VLDL, calculated 51 01/17/2021 04:19 PM Triglyceride 255 (H) 01/17/2021 04:19 PM CHOL/HDL Ratio 6.4 (H) 01/17/2021 04:19 PM DM: due Lab Results Component Value Date/Time Hemoglobin A1c 5.8 (H) 01/17/2021 04:19 PM Reports fatigue. Has a 5 month who sleeps well through the night but pt finds it hard for her to fall asleep due to anxiety. She wants her thyroid level tested as she has a fhx of thyroid disorders. She has a hx of ADHD and possible bipolar disorder. Has been on several meds in the past but felt best when on Vyvanse. Wants to see a psychiatrist. Denies SI/HI. Review of Systems Constitutional: Positive for malaise/fatigue. Negative for fever and weight loss. Respiratory: Negative for cough, hemoptysis, shortness of breath and wheezing. Cardiovascular: Negative for chest pain, palpitations, leg swelling and PND. Gastrointestinal: Negative for abdominal pain, constipation, diarrhea, nausea and vomiting. Psychiatric/Behavioral: Negative for depression and suicidal ideas. The patient has insomnia. The patient is not nervous/anxious. The patient's medications, allergies, past medical history, surgical history, family history and social history were reviewed and updated where appropriate. Prior to Admission medications Not on File No Known Allergies OBJECTIVE Visit Vitals BP 93/61 (BP 1 Location: Left upper arm, BP Patient Position: Sitting, BP Cuff Size: Adult) Pulse 93 Temp 98 ??F (36.7 ??C) (Temporal) Resp 18 Ht 5' 5 (1.651 m) Wt 220 lb (99.8 kg) LMP 10/29/2020 (Exact Date) SpO2 97% BMI 36.61 kg/m?? Physical Exam Vitals signs and nursing note reviewed. Constitutional: General: She is not in acute distress. Appearance: She is not diaphoretic. Eyes: Conjunctiva/sclera: Conjunctivae normal. Pupils: Pupils are equal, round, and reactive to light. Neck: Thyroid: No thyroid mass or thyromegaly. Cardiovascular: Rate and Rhythm: Normal rate and regular rhythm. Heart sounds: Normal heart sounds. No murmur. No friction rub. No gallop. Pulmonary: Effort: Pulmonary effort is normal. No respiratory distress. Breath sounds: Normal breath sounds. No wheezing. Skin: General: Skin is warm and dry. Neurological: Mental Status: She is alert. ASSESSMENT AND PLAN Jesu Faustin is a 20 y.o. female who presents today for: 1. Routine general medical examination at health care facility Reviewed age appropriate screening tests as recommended by the [facility] Services [facility] with patient today. 2. Screening for diabetes mellitus - HEMOGLOBIN A1C WITH EAG; Future - HEMOGLOBIN A1C WITH EAG 3. Screening for lipid disorders - METABOLIC PANEL, COMPREHENSIVE; Future - CBC W/O DIFF; Future - LIPID PANEL; Future - LIPID PANEL - CBC W/O DIFF - METABOLIC PANEL, COMPREHENSIVE 4. Family history of thyroid disease - TSH 3RD GENERATION; Future - T4 (THYROXINE); Future - T4 (THYROXINE) - TSH 3RD GENERATION 5. Mood disorder (HCC) Psychiatry list given for pt to establish care. There are no discontinued medications. Treatment risks/benefits/costs/interactions/alternatives discussed with patient. Advised patient to call back or return to office if symptoms worsen/change/persist. If patient cannot reach us or should anything more severe/urgent arise he/she should proceed directly to the nearest emergency department. Discussed expected course/resolution/complications of diagnosis in detail with patient. Patient expressed understanding with the diagnosis and plan. Tray Faustin M.D. documented in this encounter Plan of Treatment Not on file documented as of this encounter Procedures Procedure Name Priority Date/Time Associated Diagnosis Comments TSH 3RD GENERATION Routine 01/17/2021 4: 19 PM EDT HEMOGLOBIN A1C W/EAG Routine 01/17/2021 4:19 PM EDT CBC Routine 01/17/2021 4:19 PM EDT T4 Routine 01/17/2021 4:19 PM EDT LIPID PANEL Routine 01/17/2021 4:19 PM EDT COMPREHENSIVE METABOLIC PANEL Routine 01/17/2021 4:19 PM EDT documented in this encounter Results * TSH 3RD GENERATION (01/17/2021 4:19 PM EDT) TSH 0.56 0.36 - 3.74 uIU/mL 01/18/2021 4:02 AM EDT [facility] Comment: Due to TSH heterogeneity, both structurally and degree of glycosylation, monoclonal antibodies used in the TSH assay may not accurately quantitate TSH. Therefore, this result should be correlated with clinical findings as well as with other assessments of thyroid function, e.g., free T4, free T3. Serum 01/17/2021 4:19 PM EDT Tray Faustin MD CHEMISTRY ORDERABLES Performing Organization Address [facility] Co de Phone Number [facility] Naomi Leone, Metal Mover [address] [place] [phone] * (ABNORMAL) Hemoglobin A1c with eAG (01/17/2021 4:19 PM EDT) Hemoglobin A1C 5.8(H) 4.0 - 5.6 % 01/18/2021 4:02 AM EDT [facility] Comment: NEW METHOD PLEASE NOTE NEW REFERENCE RANGE (NOTE) HbA1C Interpretive Ranges <5.7 ?Normal 5.7 - 6.4 ? Consider Prediabetes >6.5 ?Consider Diabetes Estimated Avg Glucose 120 mg/dL 01/18/2021 4:02 AM EDT [facility] Whole Blood 01/17/2021 4:19 PM EDT Tray Faustin MD CHEMISTRY ORDERABLES Performing Organization Address [facility] Co de Phone Number [facility] [employer] [facility] Naomi Leone, Metal Mover [address] [place] [phone] * CBC (01/17/2021 4:19 PM EDT) [facility] WBC 9.9 3.6 - 11.0 K/uL 01/18/2021 4:02 AM EDT [facility] RBC 4.59 3.80 - 5.20 M/uL 01/18/2021 4:02 AM EDT [facility] Hemoglobin 12.8 11.5 - 16.0 g/dL 01/18/2021 4:02 AM EDT [facility] Hematocrit 41.1 35.0 - 47.0 % 01/18/2021 4:02 AM EDT [facility] MCV 89.5 80.0 - 99.0 FL 01/18/2021 4:02 AM EDT [facility] MCH 27.9 26.0 - 34.0 PG 01/18/2021 4:02 AM EDT [facility] MCHC 31.1 30.0 - 36.5 g/dL 01/18/2021 4:02 AM EDT [facility] RDW 12.4 11.5 - 14.5 % 01/18/2021 4:02 AM EDT [facility] Platelets 284 150 - 400 K/uL 01/18/2021 4:02 AM EDT [facility] MPV 11.3 8.9 - 12.9 FL 01/18/2021 4:02 AM EDT [facility] Nucleated RBCs 0.0 0 PER 100 WBC 01/18/2021 4:02 AM EDT [facility] NRBC Absolute 0.00 0.00 - 0.01 K/uL 01/18/2021 4:02 AM EDT [facility] Whole Blood (Blood Whole) 01/17/2021 4:19 PM EDT Tray Faustin MD HEMATOLOGY ORDERABLE S [facility] Naomi Leone, Metal Mover [address] [place] [phone] * (ABNORMAL) Lipid Panel (01/17/2021 4:19 PM EDT) [facility] LIPID PANEL 01/18/2021 4:02 AM EDT [facility] Cholesterol, Total 219(H) <200 MG/DL 01/18/2021 4:02 AM EDT [facility] Triglycerides 255(H) <150 MG/DL 01/18/2021 4:02 AM EDT [facility] Comment: Based on NCEP-ATP III: ??Triglycerides <150 mg/dL ??is considered normal, 150- 199 mg/dL ??borderline high, ??200-499 mg/dL high and ??greater than or equal to 500 mg/dL very high. HDL 34 MG/DL 01/18/2021 4:02 AM EDT [facility] Comment: Based on NCEP ATP III, HDL Cholesterol <40 mg/dL is considered low and >60 mg/dL is elevated. LDL Calculated 134(H) 0 - 100 MG/DL 01/18/2021 4:02 AM EDT [facility] Comment: Based on the NCEP-ATP: LDL-C concentrations are considered ??optimal <100 mg/dL, near optimal/above Normal 100-129 mg/dL Borderline High: 130-159, High: 160-189 mg/dL Very High: Greater than or equal to 190 mg/dL VLDL Cholesterol Calculated 51 MG/DL 01/18/2021 4:02 AM EDT [facility] Chol/HDL Ratio 6.4(H) 0.0 - 5.0 01/18/2021 4:02 AM EDT [facility] Blood 01/17/2021 4:19 PM EDT Trya Faustin MD CHEMISTRY ORDERABLES [facility] Naomi Leone, Metal Mover [address] [place] [phone] * T4 (01/17/2021 4:19 PM EDT) T4, Total 9.1 4.8 - 13.9 ug/dL 01/18/2021 4:02 AM EDT [facility] Serum 01/17/2021 4:19 PM EDT Tray Faustin MD CHEMISTRY ORDERABLES Performing Organization Address [facility] de Phone Number [facility] Naomi Leone, Metal Mover [address] [place] [address] [phone] * (ABNORMAL) Comprehensive Metabolic Panel (01/17/2021 4:19 PM EDT) Sodium 139 136 - 145 mmol/L 01/18/2021 4:02 AM EDT [facility] Potassium 4.3 3.5 - 5.1 mmol/L 01/18/2021 4:02 AM EDT [facility] Chloride 106 97 - 108 mmol/L 01/18/2021 4:02 AM EDT [facility] CO2 29 21 - 32 mmol/L 01/18/2021 4:02 AM EDT [facility] Anion Gap 4(L) 5 - 15 mmol/L 01/18/2021 4:02 AM EDT [facility] Glucose 80 65 - 100 mg/dL 01/18/2021 4:02 AM EDT [facility] BUN 11 6 - 20 MG/DL 01/18/2021 4:02 AM EDT [facility] Creatinine 0.79 0.55 - 1.02 MG/DL 01/18/2021 4:02 AM EDT [facility] BUN/Creatinine Ratio 14 12 - 20 01/18/2021 4:02 AM EDT [facility] GFR >60 >60 ml/min/1. 73m2 01/18/2021 4:02 AM EDT [facility] eGFR NON-AA >60 >60 ml/min/1. 73m2 01/18/2021 4:02 AM EDT [facility] Comment: Estimated GFR is calculated using the IDMS-traceable Modification of Diet in Renal Disease (MDRD) Study equation, reported for both Americans (GFRAA) and non- Americans (GFRNA), and normalized to 1.73m2 body surface area. The physician must decide which value applies to the patient. Calcium 8.8 8.5 - 10.1 MG/DL 01/18/2021 4:02 AM EDT [facility] Total Bilirubin 0.2 0.2 - 1.0 MG/DL 01/18/2021 4:02 AM EDT [facility] ALT 49 12 - 78 U/L 01/18/2021 4:02 AM EDT [facility] AST 35 15 - 37 U/L 01/18/2021 4:02 AM EDT [facility] Alkaline Phosphatase 100 45 - 117 U/L 01/18/2021 4:02 AM EDT [facility] Total Protein 6.9 6.4 - 8.2 g/dL 01/18/2021 4:02 AM EDT [facility] Albumin 3.6 3.5 - 5.0 g/dL 01/18/2021 4:02 AM EDT [facility] Globulin 3.3 2.0 - 4.0 g/dL 01/18/2021 4:02 AM EDT [facility] Albumin/Globulin Ratio 1.1 1.1 - 2.2 01/18/2021 4:02 AM EDT [facility] Serum 01/17/2021 4:19 PM EDT Tray Fautsin MD CHEMISTRY ORDERABLES [facility] Naomi Leone, Metal Mover [address] [place] [phone] documented in this encounter Visit Diagnoses Diagnosis Encounter for general adult medical examination without abnormal findings- Primary Routine general medical examination at a health care facility Encounter for screening for diabetes mellitus Screening for diabetes mellitus Encounter for screening for lipoid disorders Screening for lipoid disorders Family history of other endocrine, nutritional and metabolic diseases Unspecified mood (affective) disorder (HCC) documented in this encounter Care Teams Field Appraiser Relationship Specialty Start Date End Date Tray Faustin MD PCP - General 01/18/21 documented as of this encounter
--- OUTSIDE RECORDS SUMMARY | 2024-11-17 17:43 | XMS_ITS | Encounter Summary ---
Author Organization [facility] Address [address] [place] [address] Care Team Providers Care Vibratory Pile Driver Name Role Phone Unavailable Primary Care Provider Unavailabl e Encounter Details Date Type Department Care Team (Late st Contact Info) Description 09/24/2023 Lab Requisition [facility] Pathology & Laboratory Medicine - [facility] [address] [place] [address] Outr Resulting Lab, Provider Social History Tobacco [...] RNA BY PCR Routine 09/24/2023 14:55 EST HEPATITIS B SURFACE ANTIGEN Routine 09/24/2023 14:55 EST documented in this encounter Results * HEPATITIS B SURFACE ANTIGEN (09/24/2023 14:55 EST) Hep B Surface Ag Negative Negative 09/25/2023 8:54 EST [facility] Blood VENOUS BLOOD / Unknown 09/24/2023 14:55 EST 09/24/2023 22:00 EST us Provider Outr Resulting Lab CHEMISTRY & BLOOD GA S ORDERABLES Final Result [facility] [address] [place] [address] * HEPATITIS C AB W REFLEX TO HCV RNA BY PCR (09/24/2023 14:55 EST) Hep C Antibody Negative Negative 09/25/2023 9:35 EST [facility] Blood VENOUS BLOOD / Unknown 09/24/2023 14:55 EST 09/24/2023 22:00 EST us Provider Outr Resulting Lab CHEMISTRY & BLOOD GA S ORDERABLES Final Result [facility] [address] [place] [address] documented in this encounter Visit Diagnoses Not on filedocumented in this encounter
--- OUTSIDE RECORDS SUMMARY | 2024-11-17 17:43 | XMS_ITS | Encounter Summary ---
Author Organization [facility] Address [address] [place] [address] Care Team Providers Care Digital Media Representative Name Role Phone Unavailable Primary Care Provider Unavailabl e Encounter Details Date Type Department Care Team (Latest Contact Info) Description 01/11/2019 Legacy Conversion OP Encounter [facility] Neurology [facility] [address] [place] [address], 5th [place] [address] Kilo Melendez MD [address] [place] [address] Discharge Disposition: HOME/SELF CARE (ROUTINE DISCHARGE) Social History Tobacco Use Types Packs/Day Years Used Date Smoking Tobacco: Never Assessed Comments Unknown Sex and Gender Information Value Date Recorded Sex Assigned at Not on file Legal Sex Female 1:04 AM EDT Gender Identity Not on file Sexual Orientation Not on file documented as of this encounter Last Filed Vital Signs Vital Sign Reading Time Taken Comments Blood Pressure - - Pulse - - Temperature - - Respiratory Rate - - Oxygen Saturation - - Inhaled Oxygen Concentration - - Weight 85.9 kg (189 lb 6.4 oz) 01/11/2019 2:48 PM EDT Weight Type: Actual; Height - - Body Mass Index - - documented in this encounter Progress Notes * Kilo Melendez MD - 01/11/2019 4:20 PM EDT * Final Report * Neuro-Ophthalmology OP Initial Visit Electronically Signed by: KILO MELENDEZ MD on January 11, 2019 17:04 Patient: WADE FAUSTIN Age: 18 years Sex: F : 2000 Associated Diagnoses: None Author: KILO MELENDEZ MD Division of Neuro-Ophthalmology Dear Dr. Shaw, The above listed patient was seen at your request. Chief complaint: poor vision HPI: 18 yo female presents for the above. 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 She was seen by ophthalmology who found temporal disc pallor OU. She says she had normal vision up to age 9 but later told she needed glasses. She was told her vision was less than normal by age 12. She never really saw a worsening of her vision. She has trouble with light sensitivity. She has trouble focusing at times. She says her vision is better at night. Both eyes are similar. She did a couple of time have moonshine, and once used cocaine and LSD but does not recall losing vision at that time. She uses tobacco and marijuana. She has had exposure to ticks. Tested for STDs recently and negative. No risk for nutritional deficiencies. She has been tested for lead and negative. She has no family history of vision loss. Past medical history/ Family history/ Social history: Bipolar ADHD Otherwise noted above. Review of systems: All systems reviewed and negative except those listed in HPI. Neuro-eye exam: vitals are noted in nursing notes viewable in overview tab of EMR Best corrected [place] at distance: R: 20/50-2 ph NI L: 20/40-1 ph NI Color plates: OD- 14/14, OS- 14/14 Confrontation visual townsend/ color saturation: minor central or cecocentral depressions Pupils: 3-2 and symmetric with no RAPD Fundus exam: temporal disc pallor OU, normal vessels Motility: full, no nystagmus, normal saccades and alternate cover External appearance: no ptosis or proptosis Cooper perimetry: foveal depression OD, cecocentral depression OS, subtle, with MD -3.2 and -1.5 Other studies: OCT from ophthalmology showed RNFL 76 and 78 with temporal atrophy Assessment and plan: 18 yo with longstanding, if not lifelong poor vision. 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 Also interesting to hear that her night vision is better than daytime. Would consider a cone dystrophy. Will proceed with workup including nutritional and infectious optic neuropath labs. MRI orbits with contrast to evaluate for structural causes of optic neuropathy. Would also request ERG to look specifically at cone function. Next appointment is scheduled with ocular genetics. We can follow up again after that depending on what is uncovered with the above. The patient was counseled regarding relevant assessment, findings, tests, recommendations, plan, and/or management, and was given the opportunity to ask questions. The patient/ family verbalized understanding. For additional documentation please see the resident's note from the same visit. Thank you for allowing me to participate in this patient's care. Electronically signed. Sincerely, Kilo Melendez M.D. Internal Grinder Set Up Operator Division of Neuro-Ophthalmology Departments of Neurology and Ophthalmology [facility] [address] [address] [place] [address] [address] [place] [address], 5th floor [id number] [place] [address] code: [id number] P.S. [facility] is participating as a site for the Surgical IIH Treatment Trial sponsored by [facility]. Patientswith a new diagnosis of IIH with moderate to severe vision loss may be candidates to participate. Treatment involves maximum medical therapy vs. optic nerve sheath fenestration vs. ventriculoperitoneal shunt. To refer a patient for possible study inclusion please call our Clinical Nursing Intern, GI Triana BSN . * Scott Iglesias - 01/11/2019 3:04 PM EDT * Final Report * Document Contains Addenda Neuro-Ophthalmology OP Initial Visit Electronically Signed by: KILO MELENDEZ MD on January 11, 2019 17:52 Patient: WADE FAUSTIN Age: 18 years Sex: F : 2000 Associated Diagnoses: None Author: ALEKSANDAR BUI, SCOTT Alonso Division of Neuro-Ophthalmology Dear Dr. Shaw, The above listed patient was seen in the neuro-ophthalmology clinic at your request. Visit Information Referring MD: LARISSA BUI, CAMILA Mercedes Chief Complaint vision loss History of Present Illness This is a 18 yo female referred for optic atrophy bilaterally. 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 Denies pulsatile tinnitus, TVO, headaches. Vision does not wax or wane. She has some trouble reading occasionally (with blurriness going in and out). She reports that she began to notice that her eyes were more light sensitive since age 7-8 but was told by eye doctors that her vision was good and correctable to 20/20 until age 9. Around that time, she had abnormal visual acuity but the provider that saw her thought it was related to her poor con centration due to ADHD. She had her first dilated exam around age 12 but was not told that there was anything abnormal. 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 Shaw on 11/03/18 who referred her to see neuro-ophthalmology and ocular metal fabricating inspector Dr. Beck who they are scheduled to see 05/2019. She believes her vision at night is much better than during the day and is able to see everything including stars. She does report being bitten by ticks many time before in [place]. Denies any family hx of eye disease or decreased vision for reasons other than needing glasses. She has 4 siblings on dad's side and several more on mom's side but they are all half-siblings. Mother and father report normal vision. She does endorse drinking moonshine at least several times before but denies binge drinking oralcoholism. Denies drinking or ingesting unknown substances but used cocaine for 1 week, used LSD 1x, smokes tobacco and MJ. Denies risky sexual practices and reports recent STD check was negative. Did have hx of many UTI's in the past but does not know what was used to treat those. Only recently st arted lamictal for bipolar but denies hx of using any other meds, including lithium, for bipolar inpast. No other medical problems or ocular problems. denies being treated for TB, methanol exposure, toxic exposures (metronidazole, linezolid, disulfiram, tacrolimus, amiodarone), exposure to heavy metals and reports lead screens until age 5-7 were normal, dietary restrictions, or GI surgery or severe GI illness, use of denture creams, cranial radiation, head injury, cancer history, cat scratch recently. Past Medical History No Problems Have Been Documented. This information was current as of 01/11/19 @ 15:04:00. Social History No active social history items have been recorded. This info was current as of 01/11/19 @ 15:04:00. Family History No family history recorded. Review of Systems All systems reviewed and negative except those listed in HPI. Allergies Allergies: Allergies as charted in the allergies profile as of 01/11/19 15:04:40. NKA Medications Medications: Home Medications This information was current as OF 01/11/19 @ 15:04:00. Prescriptions & Documented Meds By Hx: -drospirenone-ethinyl estradiol (Ellen 3 mg-0.02 mg oral tablet)(Hx) : -lamotrigine (lamoTRIgine 25 mg oral tablet) (Hx): Physical Examination VS/Measurements Vital Signs This information was current as of 01/11/19 @ 15:04:00. T: NA BP: NA HR: NA RR: NA Sp02: NA, Pain: NA Ht: NA Wt: NA BMI: NA General exam: No apparent distress Cardiovascular: regular rate and rhythm no carotid bruit Respiratory: breathing is non-labored General Neurologic Exam: Mental Status: oriented to person, place and time memory intact normal concentration language intact with comprehension and spontaneous speech fund of knowledge grossly normal Cranial nerves : 5: intact sensation 7: symmetric face 8: hearing intact 9/10: uvula and palate midline 11: normal shrug 12: tongue midline Motor: full strength in upper and lower extremities no pronator drift normal tone Coordination: normal finger to nose normal rapid alternating movements and foot tapping Reflexes: brachioradialis and patellar reflexes are unremarkable no pathologic reflexes Sensation: intact throughout to touch, temperature and vibration Gait: normal routine gait, intact tandem gait negative romberg Neuro-eye exam: Best corrected visual acuity at distance: R: 20/50-2, ph 20/50-1 L: 20/40-1, ph 20/40-1 Color plates: OD: 14/14, OS: 14/14 Confrontation visual townsend/ color saturation: Subtle temporal paracentral depression OD and cecocentral depression OS. Otherwise full and symmetric. Pupils: 4 in dark and 2 in bright, with no RAPD Fundus exam: Temporal pallor OU. Vasculature and macula wnl. Motility: Full ductions and versions. Normal cover, alternate cover, and saccades. External appearance: no ptosis or proptosis Data: Cooper visual field: 24-2 OD: Reliable (1/11 fix loss, 4%FP, 0% FN). MD -3.28. Foveal depression OS: Reliable (1/11 fix loss, 3%FP, 0% FN). MD -1.55. Mild cecocentral scotoma. Other studies: Retinal nerve fiber layer OCT OD: optic nerve is 76 global OS: optic nerve is 78 global Optic nerves with temporal atrophy Assessment and plan: 1. Bilateral temporal optic nerve atrophy. The pattern of atrophy and RNFL thinning suggests toxic,metabolic, nutritional, genetic optic neuropathy. Will also rule out some treatable infectious etiologies given risky behavior in he past as well as multiple tick bites. She reports that her night vision is better than daytime and given her age as well as exam finding, need to at least consider a cone dystrophy. Plan: - Will order B1, B12, Copper, Folate, Lyme, Syphilis, HIV - Will order MRI orbits with contrast to evaluate for structural causes of optic neuropathy. - Will order Flash ERG to evaluate cone and erich function. - We will not schedule a follow up visit at this time but will call her only if the results are normal. If abnormal, we will see her back in clinic. - Next appointment is scheduled with ocular genetics 05/2019. We can follow up again after that depending on what is uncovered with the above. The patient was counseled regarding relevant assessment, findings, tests, recommendations, plan, and/or management, and was given the opportunity to ask questions. The patient/ family verbalized understanding. Scott Iglesias M.D. Ophthalmology, PGY-2 Division of Neuro-Ophthalmology [facility] [address] [address] [place] [address] [place] [address], [id number] [place] [address] Addendum by KILO MELENDEZ MD on January 11, 2019 17:53 BEGIN ATTENDING DOCUMENTATION Teaching physician note: I was not present with the resident during the interview & examinationof the patient. I repeated the critical or palomino portions of the exam. I confirm/amend the resident'shistory, exam, assessment and plan as noted in my separate note of the same date. END ATTENDING DOCUMENTATION documented in this encounter Plan of Treatment Not on file documented as of this encounter Procedures Procedure Name Priority Date/Time Associated Diagnosis Comments LYME DISEASE, ANTIBODY TOTAL WITH REFLEX Routine 01/11/2019 5:20 PM EDT COPPER Routine 01/11/2019 5:20 PM EDT SYPHILIS TOTAL ANTIBODY Routine 01/11/2019 5:20 PM EDT HIV-1 AND HIV-2 ANTIBODIES Routine 01/11/2019 5:20 PM EDT VITAMIN B1 (THIAMINE) Routine 01/11/2019 5:20 PM EDT FOLATE Routine 01/11/2019 5:20 PM EDT VITAMIN B12 Routine 01/11/2019 5:20 PM EDT documented in this encounter Results * Folate (01/11/2019 5:20 PM EDT) Folate 9.3 5.0 - 20.0 ng/mL [facility] 01/11/2019 5:20 PM EDT 01/11/2019 5:20 PM EDT us Scott Dmitruk LAB BLOOD ORDERABLES Final Resul t [facility] [address] [place] [address] * Vitamin B1 (Thiamine) (01/11/2019 5:20 PM EDT) THIAMINE BLOOD 154.0 66.5 - 200.0 nmol/L [facility] (ALLY) Comment: 1.) ?? (Medium Importance) Result Comment by Contributor_system, [facility] on January 14, 2019 05:48 This test was developed and its performance characteristics determined by [facility]. It has not been cleared or approved by the Food and Drug Administration. [facility] ??[facility] [id number] MD David Hadley ? 01/11/2019 5:20 PM EDT 01/11/2019 5:20 PM EDT us Scott Dmitruk LAB BLOOD ORDERABLES Final Resul t Performing Organization Address [facility]/ZIP Co de Phone Number [facility] LALITA) [address] [place] [address] * Syphilis Total Antibody (01/11/2019 5:20 PM EDT) Syphilis IgG Nonreactive Nonreactive [facility] 01/11/2019 5:20 PM EDT 01/11/2019 5:20 PM EDT Scott Dmitruk LAB BLOOD ORDERABLES Final Resul t Performing Organization Address [facility] Co de Phone Number [facility] [address], [place] [address] * HIV-1 And HIV-2 Antibodies (01/11/2019 5:20 PM EDT) HIV Final Negative Negative [facility] Comment: 1.) ?? (Medium Importance) Result Comment by TY CRAWFORD on January 11, 2019 20:10 Negative for HIV 1 and 2 antibodies. 2.) ?? (Medium Importance) Interpretive Data by TY CRAWFORD on January 11, 2019 20:10 Reference Value: Negative 01/11/2019 5:20 PM EDT 01/11/2019 5:20 PM EDT Scott Dmitruk LAB BLOOD ORDERABLES Final Resul t Performing Organization Address [facility] Co de Phone Number [facility] [address], [place] [address] * Lyme Disease, Antibody Total with Reflex (01/11/2019 5:20 PM EDT) Lyme Disease IgM <0.80 0.00 - 0.79 index [facility] (ALLY) Comment: 1.) ?? (Medium Importance) Result Comment by Contributor_system, [facility] on January 13, 2019 15:42 ? Negative ? <0.80 ? Equivocal ??0.80 - 1.19 ? Positive ? >1.19 ?. ?IgM levels may peak at 3-6 weeks post infection, then ?gradually decline. [facility] [place] [id number] ??[facility] [id number] MD David Hadley ?MD LYMEAB/TOTAL <0.91 0.00 - 0.90 [facility] (BEAKER) Comment: 1.) ?? (Medium Importance) Result Comment by Contributor_system, [facility] on January 13, 2019 15:42 ? Negative ? <0.91 ? Equivocal ??0.91 - 1.09 ? Positive ? >1.09 01/11/2019 5:20 PM EDT 01/11/2019 5:20 PM EDT Scott [employer] LAB BLOOD ORDERABLES Final Resul t Performing Organization Address [facility] de Phone Number [facility] [address] [place] [address] * (ABNORMAL) Copper (01/11/2019 5:20 PM EDT) COPPER 282(H) 70 - 140 ug/dL [facility] Comment: 1.) ?? (Medium Importance) Result Comment by Prabhu Chanel on January 12, 2019 14:18 Critical result called to Gennaro Iglesias MD at ??Neuro Cl by ??Gio Chanel on 01/14/2019 14:27:30 EDT , and was read back for confirmation. 2.) ?? (Medium Importance) Result Note by Prabhu Chanel on January 12, 2019 14:18 paged Aleksandar BUI at 14:22 01/14/19 3.) ?? (Medium Importance) Interpretive Data by Prabhu Chanel on January 12, 2019 14:18 This test was developed and its performance characteristics determined by the [facility]. ??It has not been cleared or approved by the FDA. ??The laboratory is regulated under CLIA as qualified to perform high-complexity testing. ??This test is used for clinical purposes. ??It should not be regarded as investigational or for research. 01/11/2019 5:20 PM EDT 01/11/2019 5:20 PM EDT Scott [employer] LAB BLOOD ORDERABLES Final Resul t Performing Organization Address [facility] Co de Phone Number [facility] [address] [place] [address] * Vitamin B12 (01/11/2019 5:20 PM EDT) Vitamin B12 403 213 - 956 pg/mL [facility] 01/11/2019 5:20 PM EDT 01/11/2019 5:20 PM EDT us Scott Dmitruk LAB BLOOD ORDERABLES Final Resul t [facility] [address] [place] [address] documented in this encounter Visit Diagnoses Not on filedocumented in this encounter
--- OUTSIDE RECORDS SUMMARY | 2024-11-17 17:43 | XMS_ITS | Encounter Summary ---
Author Organization [facility] Address [address] [place] [address] Care Team Providers Care Toddler Caregiver Name Role Phone Tray Faustin MD Primary Care Provider Encounter Details Date Type Department Care Team (Late st Contact Info) Description 10/23/2021 Legacy Historical Encounter [facility] CC AMB HISTORICAL Historical Provider, Hsp [...] on filedocumented in this encounter Care Teams Toddler Caregiver Relationship Specialty Start Date End Date Tray Faustin MD PCP - General 01/18/21 documented as of this encounter
--- OUTSIDE RECORDS SUMMARY | 2024-11-17 17:43 | XMS_ITS | Encounter Summary ---
Author Organization [facility] Address [address] [place] [address] Care Team Providers Care Sharepoint Net Developer Name Role Phone Unavailable Primary Care Provider Unavailabl e Encounter Details Date Type Department Care Team (Latest Contact Info) Description 06/02/2019 Legacy Conversion OP Encounter [facility] Pediatric Ophthal[facility] [address] [facility], [address] [place] [address] Rina Ayala MD [address] [id number] Discharge Disposition: HOME/SELF CARE (ROUTINE DISCHARGE) Social History Tobacco Use Types Packs/Day Years Used Date Smoking Tobacco: Never Assessed Comments Unknown Sex and Gender Information Value Date Recorded Sex Assigned at Not on file Legal Sex Female 1:04 AM EDT Gender Identity Not on file Sexual Orientation Not on file documented as of this encounter Progress Notes * Rina Ayala MD - 06/02/2019 1:15 PM EDT * Final Report * Ophthalmology OP Initial Visit Electronically Signed by: RINA AYALA MD on June 06, 2019 11:30 Patient: JESU FAUSTIN Age: 19 years Sex: F : 2000 Associated Diagnoses: None Author: RINA AYALA MD Visit Information Visit Type: New History of Present Illness: Optic Atrophy gen oph. Pt c/o decrease in [place] OS>OD. Physician / Genetic Counselor: Rina Ayala MD / Quyen Camara MS. [facility] and DEE Valerio Referring/Other Providers: Dr. Kilo Melendez (Neuro-Ophthalmology); Dr. Pat Shaw (Oculoplastics Ophthalmology) Parents/Partner/Accompanied by: Piyush Ayoub (boyfriend) Reason for Referral: Genetics evaluation for optic neuropathy, possibly a cone dystrophy MEDICAL HISTORY (onset & current vision problems): Jesu Faustin is a 19 year old female referred by Dr. Kilo Melendez in Neuro- Ophthalmology (Last Visit 01/11/19) due to temporal disc pallor OU and RNFL thinning suggestive of nutritional/toxic neuropathy or an optic neuropathy. Per Dr. Melendez note, Jesu has had poor vision most if not all of her life. She was first identified with vision problems at the age of 9 and was prescribed glasses. Shehas not particularly noted progression of her vision problems. She has light sensitivity and her night vision is reported to better than in the day. This led Dr. Melendez to hypothesize that she might specifically have a cone dystrophy. An MRI of her orbits with contrast was ordered to evaluate for st ructural causes of her ocular findings as well as laboratory testing including nutritional and infectious labs. Dr. Melendez was also recommending that the patient have an ERG. A [facility] so may not yet have been performed. Jesu reports today trouble particularly seeing letters and numbers that are small, far away or inbright light. She reports vision problems since she was quite young. She notes a history of sensitivity to bright lights. She has worn glasses in the past, most recently at 13 years old, but states they did not help improve her vision and she stopped wearing them. When asked about other medical issues, she reports she was diagnosed with PCOS at 12 years after a history of amenorrhea. She was placed on BCP to try and regulate her menstrual cycles. She also notes issues with depression/anxiety and a possible diagnosis of bipolar disorder. She also has a previous diagnosis of ADHD. She notes prior laboratory testing revealed high copper values but that she was later told this was due to the oral contraceptives she was taking. Did the Color deficiency test 8 months ago and reports this was normal but is concerned because she did not do well on this testing today. She states she has not particularly noticed recently changes in her vision or ability to distinguish colors. She notes that shewas told she had astigmatism in the past. Imaging Studies and Labs: MRI: Orbits w/o & w/ contrast (02/02/19) Impression: No evidence of orbital or optic nerve abnormality. Limited evaluation of the brain shows no abnormality. 01/11/19: Vit B12; Folate L; Thiamine L - within nml limits Lyme Disease IgM, Ab Total EIA (01/11/19): essentially wnl, not flagged as positive Copper, serum (01/11/19): High, 282 ug/dL (70-140 ug/dL) Syphilis IgG (01/11/19): nonreactive HIV Final report: Negative _ Yes No Details Nyctalopia Trouble seeing at night (more than friends/family)? Trouble finding seat in theater after movie already started? [_] [x] _ Decreased peripheral vision If dropped pencil on floor, able to find it? [_] [x] _ Decreased central visual acuity [_] [_x] _ Blind spots [_] [x_] _ Hemeralopia (Vision is better in dim light setting?) or Photophobia ( Sensitive to bright lights?) [_x] [_] _wears sunglasses, always had this problem. mom noticed this as a kid Color vision problems Trouble distinguishing colors (i.e. blue and brown)? [x_] [_] failed Color deficiency test Photopsia (flashes of light) [_] [x_] _ Distorted vision (straight lines appearing bent or wavy) [_x] [_] _Trees appear wavy in the distance Cataracts [_] [x_] _ Hearing loss [_] [x] _ defects [_] [x] _ History of learning problems [_] [x_] _ Other chronic health issues [_] [_x] _ SOCIAL HISTORY She notes that she and Piyush are either living with her mother or Piyush's parents. She implied that she and Piyush cannot afford housing on their own. 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 She is currently smoking cigarettes/marijuana daily, approximately 2 x/day. SMOKER: Yes [x ] Cigarettes 2-3/d FAMILY HISTORY No reported family history of significant vision issues, particularly with early onset See three generation pedigree in patient chart under quick links. Last Seen By Us: No Future Scheduled Appointments Documented History of Present Illness Interim History: _ Ophthalmology History Visit History Ophthalmic History Histories Past Medical History: No Problems Have Been Documented. This information was current as of 06/02/19 @ 13:15:00. Procedure History: Past Surgical History This information was current as of 06/02/19 @ 13:15:04. - MRI of orbits Family History: No family history items have been selected or recorded.. Please also see Pedigree: [_]. Social History This information as of 13:15 on 06/02/19. -Tobacco Assessment SHX Tobacco use:Never (less than 100 in lifetime). . Allergies / Current Medications Allergies as charted in the allergies profile as of 06/02/19 13:15:05. NKA . Home Medications This information was current as OF 06/02/19 @ 13:15:00. Prescriptions & Documented Meds By Hx: -drospirenone-ethinyl estradiol (Ellen 3 mg-0.02 mg oral tablet) (Hx): -lamotrigine (lamoTRIgine 25 mg oral tablet)(Hx): . Inpatient Medications This information was current as of 06/02/19 13:15:06. No current medications. No PRN medications. No one-time meds found in last 72hrs. No current infusions. . Ophthalmology Work Up Visual Acuity: Visual Acuity 06/02/19 12:08:00 EDT sc cc cCL ph Low Vision Test OD 20/60-1 NI OS 20/50-2 NI _ Current Glasses: Optical Rx History: Glasses Prescription Date: 06/02/2019 _ Refraction: No qualifying data available. _ Intraocular Pressure: Tonometry 06/02/19 12:08:00 EDT IOP OD 19 OS 21 IOP Method: iCare IOP Time of Day: 12:12 _ Pupils: Pupil Measurements 06/02/19 12:08:00 EDT Are Pupils Equal?: Yes In Dark In Light Diameter RAPD Shape Diameter RAPD Shape OD 3.0 mm 2.0 mm Not present Round OS 3.0 mm 2.0 mm Not present Round _ Dilation Drops: No qualifying data available. _ Confrontation Visual Esparza: No qualifying data available. _ Color Plates: Color Vision Test 06/02/19 12:08:00 EDT Correct Total Plates Comments OD 7 11 Pt states she can't see any of them but has seen them all in previous appts. OS 7 11 _ Stereoacuity and Fusion: No qualifying data available. No qualifying data available. _ Pain Assessment Motility Additional Refraction Auto/manifest: Sphere Cylinder [place] OD -0.75 +0.50 82 OS -0.25 +0.25 77 OD: 20/40-2 OS: 20/40-1 Ophthalmology Exam Eyelids and Adnexa OD: intact, normal contour. OS: intact, normal contour. Conjunctiva/Sclera OD: white and quiet. OS: white and quiet. Cornea OD: clear. OS: clear. Iris OD: intact. OS: intact. Anterior Chamber OD: deep. OS: deep. Lens OD: clear. OS: clear. Optic Nerve OD: sharp margins, temporal pallor . OS: sharp margins, temporal pallor . Retina Dilated. 28 D. OD: media clear, macula flat , artery to vein ratio 2:3, peripheral fundus is flat 360 degrees . OS: media clear, macula flat , artery to vein ratio 2:3, peripheral fundus is flat 360 degrees . Supplemental Testing RETeval (06/02/2019) Test#1 (at 2 Hz): ISCEV Photopic flash/flicker cd OD: a-wave: 11.5 ms , -6.0 uV ; b-wave: 28.4 ms , 33.1 uV ISCEV Photopic flash/flicker cd OS: a-wave: 10.0 ms , -7.1 uV ; b-wave: 28.2 ms , 25.2 uV Test#2 (at 28.3 Hz): ISCEV Photopic flash/flicker cd OD: 26.0 ms, 36.4 uV ISCEV Photopic flash/flicker cd OS: 26.2 ms, 38.2 uV color fundus photo OU (06/02/2019): notable for temporal pallor of optic disc OU OCT (06/02/2019) OD: T 30, S 102, N 68, I 97 OS: T 26, S 128, N 68, I 97 Results Review MRI of the orbits without and with contrast 02/02/2019 History: Bilateral optic nerve atrophy. Comparison: Available. Technique: Axial T2 and diffusion images were obtained through the entire head. Coronal T2, pre andfat-suppressed postcontrast coronal and axial T1-weighted images were obtained through the orbits. Images are of good quality. Findings: The paranasal sinuses, mastoid air cells, and tympanic cavities are air. No skull lesionsare present. The ventricles and cisternal spaces are within normal limits. There are no extra-axialblood or fluid collections. No mass effects are present. Limited evaluation of the brain parenchymashows no overt abnormality. There is no diffusion restriction. The globes, extraocular muscles, retrobulbar bulbar vessels and retrobulbar bulbar fat are intact. There is no abnormal signal intensity in the optic nerves. Following contrast administration, there is no abnormal enhancement. The optic chiasm, prechiasmatic optic nerves, and proximal optic tracts are unremarkable. The cavernous sinuses and surrounding structures are intact. Impression: No evidence of orbital or optic nerve abnormality. Limited evaluation of the brain shows no abnormality. Pertinent Labs/Studies: _ Assessment and Plan 1. 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 in past visual field testing -no nystagmus -abnormal color vision testing today; past notes and patient report previously had normal color vision testing -family history unremarkable for vision loss or known eye genetic syndromes -history of illicit drug use that started late teenage years; pt reports vision problems began prior to this -MRI orbits with and without contrast 01/2019 with no evidence of orbital or optic nerve abnormality -RETeval visual electrophysiology testing done at this visit is within normal limits both eyes -discussed genetic testing for inherited causes of optic atrophy; patient wished to proceed; will began authorization process -counseling/education provided as noted in below section Education and Follow Up Discussed cells, chromosomes, genes, proteins, mutations Discussed positive, negative, VUS genetic testing results Discussed causes of optic atrophy. Discussed Optic atrophy type 1. The patient was counseled that optic atrophy can have a number of underlying causes, many of which are not genetic. The patient's early age of onset, however, raises the concern for a possible hereditary etiology. She does not reports clinical symptoms suggestive of a mitochondrial disorder. After detailed discussion, the decision was made to offer this patient testing for hereditary causes of optic atrophy/neuropathy. The patient has [facility]. We will look into obtaining a benefits investigation for coverage through a DNA laboratory for a Optic Atrophy genetic testing panel. The patient is in agreement with this plan and would like to pursue genetic testing if covered by her Medicaid. This information could assist with diagnosis, prognosis and medical management of thispatient's vision issues. Optic atrophy type 1 is a condition that often causes slowly worsening vision, usually beginning inchildhood. People with optic atrophy type 1 typically experience a narrowing of their field of vision (tunnel vision). Affected individuals gradually lose their sight as their field of vision becomessmaller. Both eyes are usually affected equally, but the severity of the vision loss varies widely,even among affected members of the same family, ranging from nearly normal vision to complete blindness. In addition to vision loss, people with optic atrophy type 1 frequently have problems with color vision (color vision deficiency) that make it difficult or impossible to distinguish between shades ofblue and green. In the early stages of the condition, individuals with optic atrophy type 1 experience a progressive loss of certain cells within the retina, which is a specialized light-sensitive tissue that lines the back of the eye. The loss of these cells (known as retinal ganglion cells) is followed by the degeneration (atrophy) of the nerves that relay visual information from the eye to the brain (optic nerves), which results in further vision loss. Atrophy causes these nerves to have an abnormally pale appearance (pallor), which can be seen during an eye examination. Optic atrophy type 1 is caused by mutations in the OPA1 gene. The protein produced from this gene is made in cells and tissues throughout the body. The OPA1 protein is found within mitochondria, which are the energy-producing centers of cells. The protein plays a palomino role in the organization of theshape and structure of the mitochondria and in controlled cell (apoptosis). The OPA1 protein is also involved in a process called oxidative phosphorylation, from which cells derive much of their energy. Additionally, the protein plays a role in the maintenance of the DNA within mitochondria, called mitochondrial DNA (mtDNA). Mutations in the OPA1 gene lead to problems with mitochondrial function. The mitochondria become misshapen and disorganized and have reduced energy-producing capabilities. The maintenance of mtDNA may also be impaired, resulting in mtDNA mutations that further interfere with mitochondrial energy production. Cells that contain these poorly functioning mitochondria are more susceptible to apoptosis. In particular, cells that have high energy demands, such as retinal ganglion cells, over time.Specialized extensions of retinal ganglion cells, called axons, form the optic nerves, so when retinal ganglion cells , the optic nerves atrophy and cannot transmit visual information to the brain. Reference/From: Genetics Home Reference Genetic Counselor: Quyen Camara Ophthalmic Paint Spray Tender: Rina Ayala I spent a total of 80 minutes with the patient, with over >50% of the time spent in counseling and /or coordination of care. We discussed patient's history, my findings and recommendations, and information in assessment and plan. * Cerner Historical Provider - 06/02/2019 12:08 PM EDT * Final Report * Ophthalmology Electronically Signed by: Gracia Wilcox on June 02, 2019 12:08 Ophthalmology Entered On: 06/02/2019 12:13 EDT Performed On: 06/02/2019 12:08 EDT by Gracia Wilcox Allergies Allergies reviewed : No changes needed Patient allergy band on : Not applicable Gracia Wilcox - 06/02/2019 12:08 EDT (As Of: 06/02/2019 12:13:07 EDT) Allergies (Active) NKA Estimated Onset Date: Unspecified ; Created By: Elisabet Pang RN; Reaction Status: Active ; Category: Drug ; Substance: NKA ; Type: Allergy ; Updated By: Elisabet Pang RN; Reviewed Date: 06/02/2019 12:08 EDT Problem List (As Of: 06/02/2019 12:13:07 EDT) Social History Social History (As Of: 06/02/2019 12:13:07 EDT) Tobacco: Use: Never (less than 100 in lifetime). (Last Updated: 06/02/2019 12:08:40 EDT by Gracia Wilcox) Sexual: Self described orientation: Choose not to disclose. What is your current gender identity? (Check all that apply) Choose not to disclose. (Last Updated: 06/02/2019 12:08:47 EDT by Gracia Wilcox) Travel History Screening Traveled in Last 21 Days To or From : Not in list / Has not traveled Last 21 Day Contact w/Ill Traveler From : Not in List / No ill traveler contact Gracia Wilcox - 06/02/2019 12:08 EDT Fall Risk Screening - Ambulatory Patient Age Range : Patient (greater than 10 Years) Fall Risks - Ambulatory Screening : No known fall risks Gracia Wilcox 06/02/2019 12:08 EDT Educational Screening Learning Barriers Screening : None Education Preferences : Printed education materials Gracia Wilcox - 06/02/2019 12:08 EDT Abuse - Neglect Screening Pt Feels Unsafe at Home : No Visible Signs of Abuse/Neglect : None Gracia Wilcox 06/02/2019 12:08 EDT Reason for Visit Ophth Visit Type : New Ophth Hx of Illness : Optic Atrophy gen oph. Pt c/o decrease in [place] OS>OD. Gracia Wilcox 06/02/2019 12:08 EDT Ophthalmic History Past Ophthalmic History : optic atrophy Gracia Wilcox 06/02/2019 12:08 EDT Visual Acuity OD sc : 20/60-1 OD Pinhole : NI OS sc : 20/50-2 OS Pinhole : NI Gracia Wilcox 06/02/2019 12:08 EDT Refraction Refraction Prism Type : Manifest OD Refraction Sph : -0.75 OD Refraction Cyl : +0.50 OD Refraction [place] : 082 OD Refraction VA Far : 20/40- OS Refraction Sph : -0.25 OS Refraction Cyl : +0.25 OS Refraction [place] : 077 OS Refraction VA Far : 20/40- Gracia Wilcox 06/02/2019 13:24 EDT Pupil Measurements Pupils Equal : Yes OD MDPD In Dark : 3.0 mm OD MDPD In Light : 2.0 mm OD Pupil Shape In Light : Round OD RAPD In Light : Not present OS MDPD In Dark : 3.0 mm OS MDPD In Light : 2.0 mm OS Pupil Shape In Light : Round OS RAPD In Light : Not present Gracia Wilcox 06/02/2019 12:08 EDT IOP and Dilation Tonometry Method : iCare Tonometry Time of Day : 12:12 EST Ophthalmology OD Intraocular Pressure : 19 mmHg Ophthalmology OS Intraocular Pressure : 21 mmHg Gracia Wilcox 06/02/2019 12:08 EDT Color Vision Test Color Vision Test Type : [place] OD Color Vision Test Correct Plates : 7 OD Color Vision Test Total Plates : 11 OD Color Vision Test Comments : Pt states she can't see any of them but has seen them all in previous appts. OS Color Vision Test Correct Plates : 7 OS Color Vision Test Total Plates : 11 Gracia Wilcox N - 06/02/2019 12:08 EDT * Dipika Historical Provider - 06/02/2019 8:00 AM EDT * Final Report * Human Genetics Counselor OP Visit Note Electronically Signed by: Quyen Camara CGC on June 02, 2019 18:02 OPHTHALMOLOGY GENETIC COUNSELOR OP VISIT NOTE Physician / Genetic Counselor: Rina Ayala MD / Quyen Camara, . [facility] and [facility] Valer[facility] Referring Provider: Dr. Kilo Melendez (Neuro-Ophthalmology); Dr. Pat Shaw (Ophthalmology) Parents/Partner/Accompanied by : Piyush Ayoub (boyfriend) Reason for Referral: Genetics evaluation for optic neuropathy, possibly a cone dystrophy MEDICAL HISTORY (onset & current vision problems) : Armando Faustin is a 19 year old female referred by Dr. Kilo Melendez in Neuro- Ophthalmology (Last Visit 01/11/19) due to temporal disc pallor OU and RNFL thinning suggestive of nutritional/toxic neuropathy or an optic neuropathy. Per Dr. Melendez note, Theono has had poor vision most if not all of her life. She was first identified with vision problems at the age of 9 and was prescribed glasses. Shehas not particularly noted progression of her vision problems. She has light sensitivity and her night vision is reported to better than in the day. This led Dr. Melendez to hypothesize that she might specifically have a cone dystrophy. An MRI of her orbits with contrast was ordered to evaluate for st ructural causes of her ocular findings as well as laboratory testing including nutritional and infectious labs. Dr. Melendez was also recommending that the patient have an ERG. A formal ERG report is not in her [facility] records so may not yet have been performed. Harmonyano reports today trouble particularly seeing letters and numbers that are small, far away or inbright light. She reports vision problems since she was quite young. She notes a history of sensitivity to bright lights. She has worn glasses in the past, most recently at 13 years old, but states they did not help improve her vision and she stopped wearing them. When asked about other medical issues, she reports she was diagnosed with PCOS at 12 years after a history of amenorrhea. She was placed on BCP to try and regulate her menstrual cycles. She also notes issues with depression/anxiety and a possible diagnosis of bipolar disorder. She also has a previous diagnosis of ADHD. She notes prior laboratory testing revealed high copper values but that she was later told this was due to the oral contraceptives she was taking. Did the Color deficiency test 8 months ago and reports this was normal but is concerned because she did not do well on this testing today. She states she has not particularly noticed recently changes in her vision or ability to distinguish colors. She notes that shewas told she had astigmatism in the past. Imaging Studies and Labs : MRI: Orbits w/o & w/ contrast (02/02/19) Impression: No evidence of orbital or optic nerve abnormality. Limited evaluation of the brain shows no abnormality. 01/11/19: Vit B12; Folate L; Thiamine L - within nml limits Lyme Disease IgM, Ab Total EIA (01/11/19): essentially wnl, not flagged as positive Copper, serum (01/11/19): High, 282 ug/dL (70-140 ug/dL) Syphilis IgG (01/11/19): nonreactive HIV Final report: Negative _ Yes No Details Nyctalopia Trouble seeing at night (more than friends/family)? Trouble finding seat in theater after movie already started? [_] [x] _ Decreased peripheral vision If dropped pencil on floor, able to find it? [_] [x] _ Decreased central visual acuity [_] [_x] _ Blind spots [_] [x_] _ Hemeralopia (Vision is better in dim light setting?) or Photophobia ( Sensitive to bright lights?) [_x] [_] _wears sunglasses, always had this problem. mom noticed this as a kid Color vision problems Trouble distinguishing colors (i.e. blue and brown)? [x_] [_] failed Color deficiency test Photopsia (flashes of light) [_] [x_] _ Distorted vision (straight lines appearing bent or wavy) [_x] [_] _Trees appear wavy in the distance Cataracts [_] [x_] _ Hearing loss [_] [x] _ defects [_] [x] _ History of learning problems [_] [x_] _ Other chronic health issues [_] [_x] _ SOCIAL HISTORY She notes that she and Piyush are either living with her mother or Piyush's parents. She implied that she and Piyush cannot afford housing on their own. 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 She is currently smoking marijuana daily, approximately 2 x/day. SMOKER: Yes [x ] Cigarettes 2-3/d FAMILY HISTORY No reported family history of significant vision issues, particularly with early onset See three generation pedigree in patient chart under quick links. DRIVING: Yes [_] No [x_] Restricted [_] Not Applicable [_] PLAN/Assessment: The patient was counseled that optic atrophy can have a number of underlying causes, many of which are not genetic. The patient's early age of onset, however, raises the concern for a possible hereditary etiology. She does not reports clinical symptoms suggestive of a mitochondrial disorder. After detailed discussion, the decision was made to offer this patient testing for hereditary causes of optic atrophy/neuropathy. The patient has [facility]. We will look into obtaining a benefits investigation for coverage through a DNA laboratory for a Optic Atrophy genetic testing panel. The patient is in agreement with this plan and would like to pursue genetic testing if covered by her Medicaid. This information could assist with diagnosis, prognosis and medical management of thispatient's vision issues. Optic neuropathy is a common cause of vision loss. There can be different causes of optic neuropathy, including trauma, toxicity/nutrition, and hereditary causes. Individuals with hereditary forms ofoptic neuropathies typically have symmetric, bilateral, central vision loss, as opposed to individuals with sporadic optic neuropathies. Optic nerve damage is typically permanent and can be progressive in some conditions. Hereditary forms of optic neuropathy often affect multiple members within a family. Optic neuropathy can pass through a family in different patterns of inheritance, including autosomal dominant, autosomal recessive, and mitochondrial. Optic neuropathy can be idiopathic or the only finding in some cases; however, neurologic and other health issues can accompany optic neuropathy in other cases. Examples of some conditions that are characterized by optic neuropathy include Tarah ?s hereditary optic neuropathy and Autosomal Dominant optic atrophy. Other conditions that can more rarely involve optic neuropathy include certain types of ataxias such as Karsten ?s ataxia andspinocerebellar ataxias, myotonic dystrophy, Charcot Chelle Tooth disease, and the hereditary spastic paraplegias. There are many different genetic conditions that can cause optic neuropathy, and clinical correlation is necessary to identify a patient ?s genetic etiology. Adapted from Hereditary Optic Neuropathies, written 05/31/19 documented in this encounter Plan of Treatment Not on file documented as of this encounter Visit Diagnoses Not on filedocumented in this encounter
--- OUTSIDE RECORDS SUMMARY | 2024-11-17 17:43 | XMS_ITS | Encounter Summary ---
Author Organization [facility] Address [address] [place] [address] Care Team Providers Care Wax Pot Tender Name Role Phone Unavailable Primary Care Provider Unavailabl e Encounter Details Date Type Department Care Team (Late st Contact Info) Description 09/24/2023 Lab Requisition [facility] Pathology & Laboratory Medicine - [facility] [address], [place] [id number] Outr Resulting Lab, Provider Social History Tobacco [...] Procedure Name Priority Date/Time Associated Diagnosis Comments RUBELLA IGG ANTIBODY Routine 09/24/2023 14:55 EST VARICELLA IGG ANTIBODY Routine 09/24/2023 14:55 EST documented in this encounter Results * VARICELLA IGG ANTIBODY (09/24/2023 14:55 EST) Varicella IgG Ab Positive See Note 09/25/2023 11:[address] [facility] Comment:Presence of detectab le Varicella Zoster virus IgG antibodies. Blood VENOUS BLOOD / Unknown 09/24/2023 14:55 EST 09/24/2023 22:00 EST us Provider Outr Resulting Lab IMMUNOLOGY AND SEROL OGY ORDERABLES Final Result [facility] [address] [place] [address] * RUBELLA IGG ANTIBODY (09/24/2023 14:55 EST) Rubella IgG Ab Positive See Note 09/25/2023 11:[address] [facility] Comment:Positive for IgG ant ibodies to Rubella virus. Blood VENOUS BLOOD / Unknown 09/24/2023 14:55 EST 09/24/2023 22:00 EST us Provider Outr Resulting Lab CHEMISTRY & BLOOD GA S ORDERABLES Final Result [facility] [address] [place] [address] documented in this encounter Visit Diagnoses Not on filedocumented in this encounter
--- OUTSIDE RECORDS SUMMARY | 2024-11-17 17:43 | XMS_ITS | Encounter Summary ---
Author Organization [facility] Address [address] [place] [address] Care Team Providers Care Software Testing Specialist Name Role Phone Unavailable Primary Care Provider Unavailabl e Encounter Details Date Type Department Care Team (Late st Contact Info) Description 09/23/2018 Legacy Conversion OP Encounter [facility] [address] [place] [address], 4th [place] [address] Edith Morales MD [address] [facility] [address] [place] [address] Social History Tobacco Use Types Packs/Day Years Used Date Smoking Tobacco: Never Assessed Comments Unknown Sex and Gender Information Value Date Recorded Sex Assigned at Not on file Legal Sex Female 1:04 AM EDT Gender Identity Not on file Sexual Orientation Not on file documented as of this encounter Miscellaneous Notes * Case Communication - Cerner Historical Provider - 10/17/2020 3:27 PM EST * Final Report * Document Contains Addenda Communication From: Quyen Camara CGC To: LUCY BUI, RINA LGerard; Cc: Gracia Wilcox; Sent: 10/17/2020 15:27:13 EST We last saw this patient on 06/02/19 for 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 We had hoped to order for her the Progressive External Ophthalmoplegia (PEO)/Optic Atrophy Nuclear Gene Panel through [facility]. Patient had [employer] Medicaid and we could not get approval for the testing. It does not appear she has not been seen since in the [facility] Ophthalmology clinics. Several (but certainly not all) ofthe genes on some of the Optic Atrophy gene panels are now on the expanded My [facility] Tracker panel including some osmel genes. Do we want to try and set this patient up for a follow up appt to see howshe is doing and see what genetic testing might be possible/applicable now? Thanks, Quyen Addendum by RINA AYALA MD on October 17, 2020 16:58:26 EST From: RINA AYALA MD To: Quyen Camara CGC; Cc: Gracia Wilcox; Sent: 10/17/2020 16:58:26 EST Subject: RE: yes, good idea. Gracia, please schedule for f/u in [facility], thanks. -Rina documented in this encounter Plan of Treatment Not on file documented as of this encounter Visit Diagnoses Not on filedocumented in this encounter
--- OUTSIDE RECORDS SUMMARY | 2024-11-17 17:43 | XMS_ITS | Encounter Summary ---
Author Organization [facility] Address [address] [place] [address] Care Team Providers Care Waist Pleater Name Role Phone Tray Faustin MD Primary Care Provider Encounter Details Date Type Department Care Team (Late st Contact Info) Description 10/31/2021 Orders Only [facility] [place] [address] [place] [address] Social History Tobacco Use Types [...] Procedure Name Priority Date/Time Associated Diagnosis Comments OVA AND PARASITE SCREEN Routine 10/31/2021 11:11 AM EST documented in this encounter Results * Ova and parasite screen (10/31/2021 11:11 AM EST) Site STOOL 11/05/2021 11:37 AM EST [facility] Ova And Parasites Final Report Below 11/05/2021 11:37 AM EST [facility] Comment: (NOTE) These results were obtained using wet preparation(s) and trichrome stained smear. This test does not include testing for Cryptosporidium parvum, Cyclospora, or Microsporidia. Performed At: [facility] [id number] Stalin Weems MD Ph:[phone] STOOL SPECIMEN / Unknown 10/31/2021 11:11 AM EST 11/01/2021 11:15 AM EST Jeffy Singleton MD MICROBIOLOGY - [facility] AL ORDERABLES [facility] Naomi Leone, Community Health Director [address] [place] [address] documented in this encounter Visit Diagnoses Not on filedocumented in this encounter Care Teams Waist Pleater Relationship Specialty Start Date End Date Tray Faustin MD PCP - General 01/18/21 documented as of this encounter
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
--- OUTSIDE RECORDS SUMMARY | 2024-11-17 17:43 | XMS_ITS | Referral Summary ---
Author Organization [facility] Address [address] [place] [address] Care Team Providers Care Digital Media Producer Name Role Phone Unavailable Primary Care Provider Unavailabl e Social History Tobacco Use Types Packs/Day Years Used Date Smoking Tobacco: Never Assessed Comments Unknown Sex and Gender Information Value Date Recorded Sex Assigned at Not on file Legal Sex Female 16:20 EST Gender Identity Not on file Sexual Orientation Not on file Plan of Treatment Not on file Procedures Procedure Name Priority Date/Time Associated Diagnosis Comments HEPATITIS C AB W REFLEX TO HCV RNA BY PCR Routine 09/24/2023 14:55 EST from Last 3 Months or Most Recently Relevant to Health Maintenance Results * HEPATITIS C AB W REFLEX TO HCV RNA BY PCR (09/24/2023 14:55 EST) Hep C Antibody Negative Negative 09/25/2023 9:[address] [facility] Blood VENOUS BLOOD / Unknown 09/24/2023 14:55 EST 09/24/2023 22:00 EST us Provider Outr Resulting Lab CHEMISTRY & BLOOD GA S ORDERABLES Final Result [facility] [address] [place] [address] from Last 3 Months or Most Recently Relevant to Health Maintenance
--- OUTSIDE RECORDS SUMMARY | 2024-11-17 17:43 | XMS_ITS | Referral Summary ---
Author Organization [facility] Address [address] [place] [address] Care Team Providers Care Packaging Sales Representative Name Role Phone Unavailable Primary Care Provider Unavailabl e Social History Tobacco Use Types Packs/Day Years Used Date Smoking Tobacco: Never Comments Unknown Sex and Gender Information Value Date Recorded Sex Assigned at Not on file Legal Sex Female 1:04 AM EDT Gender Identity Not on file Sexual Orientation Not on file Last Filed Vital Signs Vital Sign Reading Time Taken Comments Blood Pressure - - Pulse - - Temperature - - Respiratory Rate - - Oxygen Saturation - - Inhaled Oxygen Concentration - - Weight 85.9 kg (189 lb 6.4 oz) 01/11/2019 2:48 PM EDT Weight Type: Actual; Height - - Body Mass Index - - Plan of Treatment Not on file
--- OUTSIDE RECORDS SUMMARY | 2024-11-17 17:43 | XMS_ITS | Encounter Summary ---
Author Organization [facility] Address [address] [place] [address] Care Team Providers Care General Foundry Worker Name Role Phone Unavailable Primary Care Provider Unavailabl e Encounter Details Date Type Department Care Team (Late st Contact Info) Description 02/02/2019 Legacy Conversion OP Encounter [facility] Rad[facility] [address] [place] [address] ProviderDipika Historical Discharge Disposition: HOME/SELF CARE (ROUTINE DISCHARGE) Social [...] Procedure Name Priority Date/Time Associated Diagnosis Comments MRI ORBIT FACE NECK W AND WO IV CONTRAST Routine 02/02/2019 3:28 PM EDT documented in this encounter Results * MR orbit w and wo IV contrast (02/02/2019 3:28 PM EDT) Anatomical Region Laterality Modality Head, Neck Magnetic Resonan ce 02/02/2019 3:28 PM EDT 02/02/2019 4:05 PM EDT Narrative 02/08/2019 1:47 PM EDT Reason for Exam: bilateral optic nerve atrophy Report Ordering Physician:ALEKSANDAR BUI, SCOTT Alonso MRI of the orbits without and with contrast/07/2019 at 1543 hours History: Bilateral optic nerve atrophy. Comparison: Available. Technique: Axial T2 and diffusion images were obtained through the entire head. Coronal T2, pre and fat-suppressed postcontrast coronal and axial T1-weighted images were obtained through the orbits. Images are of good quality. Findings: The paranasal sinuses, mastoid air cells, and tympanic cavities are air. No skull lesions are present. The ventricles and cisternal spaces are within normal limits. There are no extra-axial blood or fluid collections. No mass effects are present. Limited evaluation of the brain parenchyma shows no overt abnormality. There is no diffusion [...] evaluation of the brain shows no abnormality. Dictated By: Femi Sahni Electronically Verified by: Femi Sahni 02/08/2019 1:42 PM Procedure Note Femi Sahni MD - 08/22/2021 Reason for Exam: bilateral optic nerve atrophy Report Ordering Physician:ALEKSANDAR BUI, SCOTT V MRI of the orbits without and with contrast/07/2019 at 1543 hours History: Bilateral optic nerve atrophy. Comparison: Available. Technique: Axial T2 and diffusion images were obtained through the entirehead. Coronal T2, pre and fat-suppressed postcontrast coronal and axialT1-weighted images were obtained through the orbits. Images are of goodquality. Findings: The paranasal sinuses, mastoid air cells, and tympanic cavitiesare air. No skull lesions are present. The ventricles and cisternal spacesare within normal limits. There are no extra-axial blood or fluidcollections. No mass effects are present. Limited evaluation of the brainparenchyma shows no overt abnormality. There is no diffusionrestriction. The globes, extraocular muscles, retrobulbar bulbar vessels andretrobulbar bulbar fat are intact. There is no abnormal signal intensityin the optic nerves. Following contrast administration, there is noabnormal enhancement. The optic chiasm, prechiasmatic optic nerves, andproximal optic tracts are unremarkable. The cavernous sinuses andsurrounding structures are intact. Impression: No evidence of orbital or optic nerve abnormality. Limitedevaluation of the brain shows no abnormality. Dictated By: Femi Sahni Electronically Verified by: Femi Sahni 02/08/2019 1:42 PM Scott Iglesias [facility] MRI PROCEDURES Final Result documented in this encounter Visit Diagnoses Not on filedocumented in this encounter
--- OUTSIDE RECORDS SUMMARY | 2024-11-17 17:43 | XMS_ITS | Encounter Summary ---
Author Organization [facility] Address [address] [place] [address] Care Team Providers Care Ventilated Rib Fitter Name Role Phone Unavailable Primary Care Provider Unavailabl e Encounter Details Date Type Department Care Team (Late st Contact Info) Description 09/24/2023 Lab Requisition [facility] Pathology & Laboratory Medicine - [facility] [address] [place] [address] Outr Resulting Lab, Provider Social History Tobacco [...] Procedure Name Priority Date/Time Associated Diagnosis Comments CHLAMYDIA/N. GONORRHOEAE AMPLIFIED NUCLEIC ACID, THINPREP Routine 09/24/2023 14:00 EST documented in this encounter Results * CHLAMYDIA/N. GONORRHOEAE AMPLIFIED RNA, THINPREP (09/24/2023 14:00 EST) Neisseria gonorrhoeae Result Negative Negative 09/25/2023 14:43 EST [facility] Chlamydia trachomatis Result Negative Negative 09/25/2023 14:43 EST [facility] Pap Test CERVIX UTERI STRUCTURE / Unknown 09/24/2023 14:00 EST 09/25/2023 9:22 EST us Provider Outr Resulting Lab MICROBIOLOGY - GENER AL ORDERABLES Final Result [facility] [address] [place] [address] documented in this encounter Visit Diagnoses Not on filedocumented in this encounter
--- OUTSIDE RECORDS SUMMARY | 2024-11-17 17:43 | XMS_ITS | Encounter Summary ---
Author Organization [facility]ardm[facility]uel[facility] Address [address] [place] [address] Care Team Providers Care Radiology Assistant Name Role Phone Tray Faustin MD Primary Care Provider [phone] Encounter Details Date Type Department Care Team (Late st Contact Info) Description 10/31/2021 Legacy Historical Encounter [facility] [place] [address] [place] [id number] Social History Tobacco Use Types Packs/Day Years Used Date Smoking Tobacco: Never Assessed Sex and Gender Information Value Date Recorded Sex Assigned at Female 12/25/2021 12:53 AM EST Gender Identity Female 12/25/2021 12:53 AM EST Sexual Orientation Bisexual 12/25/2021 12 :53 AM EST documented as of this encounter Progress Notes * Jeffy Singleton MD - 10/31/2021 11:59 PM EST Dear Jesu Faustin, Your stool testing did not identify any sign of parasites. Jeffy Singleton MD documented in this encounter Plan of Treatment Not on file documented as of this encounter Procedures Procedure Name Priority Date/Time Associated Diagnosis Comments OVA & PARASITES, STOOL, REFLEX Routine 10/31/2021 11:11 AM EST documented in this encounter Results * OVA & PARASITES, STOOL, REFLEX (10/31/2021 11:11 AM EST) Result 1 Comment 11/05/2021 3:50 PM EST [facility] Comment: (NOTE) No ova, cysts, or parasites seen. One negative specimen does not rule out the possibility of a parasitic infection. Performed At: [facility] [address] [id number] David Hadley MD Ph:[phone] STOOL SPECIMEN / Unknown 10/31/2021 11:11 AM EST 11/01/2021 11:15 AM EST Jeffy Singleton MD BODY FLUIDS AND JOHANNA MCFARLAND ORDERABLES [facility] Naomi Leone, Tax Investigator [address] [place] [id number] documented in this encounter Visit Diagnoses Not on filedocumented in this encounter Care Teams Radiology Assistant Relationship Specialty Start Date End Date Tray Faustin MD PCP - General 01/18/21 documented as of this encounter
--- OUTSIDE RECORDS SUMMARY | 2024-11-17 17:43 | XMS_ITS | Patient Health Record ---
Author Organization [facility] Billing Info Address [address] [place], [place] [id number] Care Team Providers Care Chief Internal Auditor Name Role Phone Daily Ferrer Unavailable Unavailable Reason For Referral No Information Social History Tobacco Use: Social History Observation Description Date Details (start date - stop date) Current Smoker NA - NA Tobacco Status: Question Answer Notes Patient is a current every day smoker Problems No Known Problems Plan Of Treatment Pending Test Test Name Order Date URINE TEST, VISUAL COLOR [facility] [employer] (02182) 12/30/2016 Insurance Providers Payer Name Payer Address Payer Phone Subscriber Number Group Number Insured Name Patient Relationship to Insured Coverage Start Date Coverage End Date [facility] O [address] [place], [place] [id number] [phone] [id number] Jesu Faustin Self - patient is the insured 7 2
--- OUTSIDE RECORDS SUMMARY | 2024-11-17 17:43 | XMS_ITS | Clinical Summary ---
Author Organization Formerly [facility] Address [address] [place] [address] Care Team Providers Care Poll Clerk Name Role Phone Unavailable Primary Care Provider [...] Mass Index - - Plan of Treatment Health Maintenance Due Date Last Done Comments Depression Screening 2010 Varicella Vaccines (1 of 2 - 13+ 2-dose series) 2011 DTaP/Tdap/Td Vaccines (1 - Tdap) 2013 HPV Vaccines (1 - 3-dose series) 2013 Hepatitis B Vaccines (1 of 3 - 19+ 3-dose series) 2017 Pap Test 2019 COVID-19 Vaccine ( - 2023-2 5 season) 2024 Influenza Vaccine (#1) 2024 Zoster Vaccines (1 of 2) 2048 HIB Vaccines Aged Out No longer eligi ble based on patient's age to complete this topic Hepatitis A Vaccines Aged Out No long er eligible based on patient's age to complete this topic IPV Vaccines Aged Out No longer eligi ble based on patient's age to complete this topic Meningococcal Vaccine Aged Out No jose manuel jahaira eligible based on patient's age to complete this topic Pneumococcal Vaccine <49 Aged Out No longer eligible based on patient's age to complete this topic Rotavirus Vaccines Aged Out No longer eligible based on patient's age to complete this topic
--- OUTSIDE RECORDS SUMMARY | 2024-11-17 17:43 | XMS_ITS | Continuity of Care Document ---
Author Organization [facility][1] [facility] Address [address] [place] [address] Encounter [facility] FIN NBR [id number] Date(s): 12/25/22 - 12/25/22 [facility] [address], [place] [address] Encounter Diagnosis Neck muscle strain(Discharge Diagnosis) - 12/25/22 Discharge Disposition: Home or Self Care Attending Physician: Sada Doe MD Admitting Physician: Sada Doe MD Allergies, Adverse Reactions, Alerts No Known Medication Allergies Functional Status 12/25/22 Family Member Travel History No recent t ravel Recent Travel History No recent travel Other exposure to Infectious Disease Non e Vital Signs Most recent to oldest [Reference Range]: 1 Temperature Temporal Artery [36-38 Deg C ] 36.9 Deg C (12/25/22 11:07 AM) Peripheral Pulse Rate [60-100 bpm] 96 bp m (12/25/22 11:07 AM) Respiratory Rate [12-24 br/min] 16 br/mi n (12/25/22 11:07 AM) Blood Pressure [90-140/60-90 mmHg] 103/6 0mmHg (12/25/22 11:07 AM) Weight Dosing 81.65 kg (12/25/22 11:33 AM) Weight Estimated 81.65 kg (12/25/22 11:07 AM) Height/Length Dosing 167.600 cm (12/25/22 11:33 AM) Height/Length Estimated 167.600 cm (12/25/22 11:07 AM) Social History Social History Type Response Tobacco Never tobacco user T obacco Use:. Sex Hospital Discharge Instructions Patient Education 12/25/2022 10:38:37 Muscle Strain Muscle Strain A muscle strain is an injury that occurs when a muscle is stretched beyond its normal length. Usually, a small number of muscle fibers are torn when this happens. There are three types of muscle strains. First-degree strains have the least amount of muscle fiber tearing and the least amount of pain. Second-degree and third-degree strains have more tearing and pain. Usually, recovery from muscle strain takes 1???2 weeks. Complete healing normally takes 5???6 weeks. What are the causes? This condition is caused when a sudden, violent force is placed on a muscle and stretches it too far. This may occur with a fall, while lifting, or during sports. What increases the risk? This condition is more likely to develop in athletes and people who are physically active. What are the signs or symptoms? Symptoms of this condition include: ??? Pain. ??? Tenderness. ??? Bruising. ??? Swelling. ??? Trouble using the muscle. How is this diagnosed? This condition is diagnosed based on a physical exam and your medical history. Tests may also be done, including an X-ray, ultrasound, or MRI. How is this treated? This condition is initially treated with WOLFE therapy. This therapy involves: ??? Protecting the muscle from being injured again. ??? Resting the injured muscle. ??? Icing the injured muscle. ??? Applying pressure (compression) to the injured muscle. This may be done with a splint or elastic bandage. ??? Raising (elevating) the injured muscle. Your health care provider may also recommend medicine for pain. Follow these instructions at home: Managing pain, stiffness, and swelling ??? If directed, put ice on the injured area. To do this: ??? If you have a removable splint, remove it as told by your health care provider. ??? Put ice in a plastic bag. ??? Place a towel between your skin and the bag. ??? Leave the ice on for 20 minutes, 2???3 times a day. ??? Remove the ice if your skin turns bright red. This is very important. If you cannot feel pain, heat, or cold, you have a greater risk of damage to the area. ??? Move your fingers or toes often to reduce stiffness and swelling. ??? Raise (elevate) the injured area above the level of your heart while you are sitting or lying down. ??? Wear an elastic bandage as told by your health care provider. Make sure that it is not too tight. General instructions ??? Take ajgb-tlr-dwwnjfj and prescription medicines only as told by your health care provider. Treatment may include muscle relaxants or medicines for pain and inflammation that are taken by mouth or applied to the skin. ??? Restrict your activity and rest the injured muscle as told by your health care provider. Gentlemovements may be allowed. ??? If physical therapy was prescribed, do exercises as told by your health care provider. ??? Do not put pressure on any part of the splint until it is fully hardened. This may take severalhours. ??? Do not use any products that contain nicotine or tobacco. These products include cigarettes, chewing tobacco, and vaping devices, such as e-cigarettes. If you need help quitting, ask your health care provider. ??? Ask your health care provider when it is safe to drive if you have a splint. ??? Keep all follow-up visits. This is important. How is this prevented? Warm up before exercising. This helps to prevent future muscle strains. Contact a health care provider if: ??? You have more pain or swelling in the injured area. Get help right away if: ??? You have numbness or tingling in the injured area. ??? You lose a lot of strength in the injured area. Summary ??? A muscle strain is an injury that occurs when a muscle is stretched beyond its normal length. ??? This condition is caused when a sudden, violent force is placed on a muscle and stretches it too far. ??? This condition is initially treated with WOLFE therapy, which involves protecting, resting, icing, compressing, and elevating. ??? Gentle movements may be allowed. If physical therapy was prescribed, do exercises as told by your health care provider. This information is not intended to replace advice given to you by your health care provider. Make sure you discuss any questions you have with your health care provider. Document Revised: 12/30/2021 Document Reviewed: 12/30/2021 [employer] Patient Education ?? 2021 [employer] 12/25/2022 10:35:29 Cervical Sprain Cervical Sprain A cervical sprain is a stretch or tear in one or more of the ligaments in the neck. Ligaments are the tissues that connect bones. Cervical sprains can range from mild to severe. Severe cervical sprains can cause the spinal bones (vertebrae) in the neck to be unstable. This can result in spinal corddamage and in serious nervous system problems. The time that it takes for a cervical sprain to heal depends on the cause and extent of the injury.Most cervical sprains heal in 4???6 weeks. What are the causes? Cervical sprains may be caused by trauma, such as an injury from a motor vehicle accident, a fall, or a sudden forward and backward whipping movement of the head and neck (whiplash injury). Mild cervical sprains may be caused by wear and tear over time. What increases the risk? The following factors may make you more likely to develop this condition: ??? Participating in activities that have a high risk of trauma to the neck. These include contact sports, auto racing, gymnastics, and diving. ??? Taking risks when driving or riding in a motor vehicle. ??? Osteoarthritis of the spine. ??? Poor strength and flexibility of the neck. ??? A previous neck injury. ??? Poor posture. ??? Spending long periods in certain positions that put stress on the neck, such as sitting at a computer for a long time. What are the signs or symptoms? Symptoms of this condition include: ??? Pain, soreness, stiffness, tenderness, swelling, or a burning sensation in the front, back, or sides of the neck, shoulders, or upper back. ??? Sudden tightening of neck muscles (spasms). ??? Limited ability to move the neck. ??? Headache. ??? Dizziness. ??? Nausea or vomiting. ??? Weakness, numbness, or tingling in a hand or an arm. Symptoms may develop right away after injury, or they may develop over a few days. In some cases, symptoms may go away with treatment and return (recur) over time. How is this diagnosed? This condition may be diagnosed based on: ??? Your medical history. ??? Your symptoms. ??? Any recent injuries or known neck problems that you have, such as arthritis in the neck. ??? A physical exam. ??? Imaging tests, such as X-rays, MRI, and CT scan. How is this treated? This condition is treated by resting and icing the injured area and doing physical therapy exercises. Heat therapy may be used 2???3 days after the injury occurred if there is no swelling. Depending on the severity of your condition, treatment may also include: ??? Keeping your neck in place (immobilized) for periods of time. This may be done using: ??? A cervical collar. This supports your chin and the back of your head. ??? A cervical traction device. This is a sling that holds up your head. The device removes weight and pressure from your neck, and it may help to relieve pain. ??? Medicines that help to relieve pain and inflammation. ??? Medicines that help to relax your muscles (muscle relaxants). ??? Surgery. This is rare. Follow these instructions at home: Medicines ??? Take lohq-haz-ytgldfe and prescription medicines only as told by your health care provider. ??? Ask your health care provider if the medicine prescribed to you: ??? Requires you to avoid driving or using heavy machinery. ??? Can cause constipation. You may need to take these actions to prevent or treat constipation: ??? Drink enough fluid to keep your urine pale yellow. ??? Take kcxf-kre-tapykwn or prescription medicines. ??? Eat foods that are high in fiber, such as beans, whole grains, and fresh fruits and vegetables. ??? Limit foods that are high in fat and processed sugars, such as fried or sweet foods. If you have a cervical collar: ??? Wear the collar as told by your health care provider. Do not remove it unless told. ??? Ask before making any adjustments to your collar. ??? If you have long hair, keep it outside of the collar. ??? Ask your health care provider if you may remove the collar for cleaning and bathing. If so: ??? Follow instructions about how to remove it safely. ??? Clean it by hand with mild soap and water and air-dry it completely. ??? If your collar has removable pads, remove them every 1???2 days and wash them by hand with soapand water. Let them air-dry completely before putting them back in the collar. ??? Tell your health care provider if your skin under the collar has irritation or sores. Managing pain, stiffness, and swelling ??? If directed, use a cervical traction device as told. ??? If directed, put ice on the affected area. To do this: ??? Put ice in a plastic bag. ??? Place a towel between your skin and the bag. ??? Leave the ice on for 20 minutes, 2???3 times a day. ??? If directed, apply heat to the affected area before you do your physical therapy or as often astold by your health care provider. Use the heat source that your health care provider recommends, such as a moist heat pack or a heating pad. ??? Place a towel between your skin and the heat source. ??? Leave the heat on for 20???30 minutes. ??? Remove the heat if your skin turns bright red. This is especially important if you are unable to feel pain, heat, or cold. You may have a greater risk of getting burned. Activity ??? Do not drive while wearing a cervical collar. If you do not have a cervical collar, ask if it is safe to drive while your neck heals. ??? Do not lift anything that is heavier than 10 lb (4.5 kg), or the limit that you are told, untilyour health care provider says that it is safe. ??? Rest as told by your health care provider. ??? If physical therapy was prescribed, do exercises as told by your health care provider or physical therapist. ??? Return to your normal activities as told by your health care provider. Avoid positions and activities that make your symptoms worse. Ask your health care provider what activities are safe for you. General instructions ??? Do not use any products that contain nicotine or tobacco, such as cigarettes, e-cigarettes, andchewing tobacco. These can delay healing. If you need help quitting, ask your health care provider. ??? Keep all follow-up visits as told by your health care provider or physical therapist. This is important. How is this prevented? To prevent a cervical sprain from happening again: ??? Use and maintain good posture. Make any needed adjustments to your workstation to help you do this. ??? Exercise regularly as told by your health care provider or physical therapist. ??? Avoid risky activities that may cause a cervical sprain. Contact a health care provider if you have: ??? Symptoms that get worse or do not get better after 2 weeks of treatment. ??? Pain that gets worse or does not get better with medicine. ??? New, unexplained symptoms. ??? Sores or irritated skin on your neck from wearing your cervical collar. Get help right away if: ??? You have severe pain. ??? You develop numbness, tingling, or weakness in any part of your body. ??? You cannot move a part of your body (you have paralysis). ??? You have neck pain along with severe dizziness or headache. Summary ??? A cervical sprain is a stretch or tear in one or more of the ligaments in the neck. ??? Cervical sprains may be caused by trauma, such as an injury from a motor vehicle accident, a fall, or a sudden forward and backward whipping movement of the head and neck (whiplash injury). ??? Symptoms may develop right away after injury, or they may develop over a few days. ??? This condition may be treated with rest, ice, heat, medicines, physical therapy, and surgery. This information is not intended to replace advice given to you by your health care provider. Make sure you discuss any questions you have with your health care provider. Document Revised: 06/20/2020 Document Reviewed: 06/20/2020 [employer] Patient Education ?? 2021 [employer]. Physician Emergency department Note * Min Velazco MD: PERFORM Event Display: ED Note Physician Authored Date: [id number] WADE KEN :2000 Age:22 years Sex:Female Visit Date:12/25/2022 Basic Information Time Seen: Min Velazco MD / 12/25/2022 11:12 History Of Present Illness: 22-year-old previously healthy female was pulling hard on her daughter's car seat strap??and had anacute??onset of left sided??pain along her trapezius into the left side of her neck.?? She took??2 wwvs-vyo-qavmrxz ibuprofen and it feels somewhat better.?? This occurred??3 hours ago.?? She is concerned because of limited range of motion and ability to work. ??She has no radiation of the pain, nonew nerve symptoms, and no other concerns. Review of Systems: She has no history of??bone??disease, bone injury, surgery on her spine, fever,??infection recently, or other issues of concern. Physical Exam Vitals & Measurements T:??36.9?C ??(Temporal Artery)?? HR:??96??(Peripheral)?? RR:??16?? BP:??103/60?? SpO2:??99%?? HT:??167.600??cm?? WT:??81.65??kg??(Estimated)?? Pain Score:??8?? O2 Therapy:??Room air?? Physical exam reveals an alert interactive female with unremarkable vital signs.?? Head neck exam is normal. ??Palpation reveals tightness of her sternal hyoid but her sternocleidomastoid actually appears loose.?? She has??45 degrees of rotation laterally in both directions with pain starting at that but continued passive range of motion to near??normal.?? She has increased pain with flexion beyond 30 degrees and extension beyond 45 degrees??but again relatively normal range of motion.?? She has normal protraction and retraction without aggravation of pain.?? She has normal sensation to her left upper extremity. ??There are obvious trigger points along her mid trapezius??primarily??that aggr avate the pain.?? Her cervical spine is nontender to palpation with normal alignment. Medical Decision Making: This patient has acute neck strain. Procedure No Qualifying Data Assessment/Plan 1.??Neck muscle strain??S16.1XXA Ice??repetitively for 20 to 30 minutes as needed per instructions.?? Start heat in 48 hours??as needed. ??Range of motion??needs to be maintained and this was reviewed in detail. ??Follow-up with occupational health or??primary care if she continues to have problems. ??I gave her work restrictions for a few days to get her through to Thursday. Orders: Discharge Patient, 12/25/22 11:39:00 EST Patient Education Muscle Strain Cervical Sprain Problem List/Past Medical History Ongoing No qualifying data Historical No qualifying data Allergies No Known Medication Allergies Social History Electronic Cigarette/Vaping Electronic Cigarette Use: Use, within last 90 days. Tobacco Never tobacco user Tobacco Use:. Electronically Signed on 12/25/22 11:44 AM Min Velazco MD Emergency department Discharge instructions * Min Velazco MD: PERFORM Event Display: ED Discharge Information Authored Date: [id number] WADE KEN :2000 Age:22 years Sex:Female Visit Date:12/25/2022 Discharge Instructions We would like to thank you for allowing us to assist you with your healthcare needs. The following includes patient education materials and information regarding your injury/illness. Diagnosis from Today's Visit Neck muscle strain Discharge Vitals Temperature??(Temporal Artery) 98.4 ??F (36.9 ??C) Heart Rate??(Peripheral) 96 Respiratory Rate?? 16 Blood Pressure?? 103/60?? Height?? 65.98 in (167.600 cm) Weight??(Estimated) 180.04 lb (81.65 kg) Allergies No Known Medication Allergies What to Do Next Instructions from Your Care Team You have an acute??strain??of your neck on the left side.?? Continue exercises??in each direction as I reviewed??to maintain range of motion.?? Specifically do protraction/retraction exercises 10 times??at least 4 times a day.?? Use ice??for 20 minutes to 30 minutes every 2-3 hours for the next 1 to 2 days,??then??heat to improve mobility, and ice after activity if its or??as needed over the nextfew days. ?? You have the following work restrictions: For the next 3 days??no??lifting??with the left arm,??reaching with the left arm,??straining, twisting,??or any activities that require??twisting??of the neck in any significant direction but causes pain.?? After that you should be improving enough to return to work??full duty. ??If not you will need reassessment??with our occupational health department or primary care. You were treated today on an emergency basis; it may be cote to contact your primary care provider to notify them of your visit today. You may have been referred to your regular doctor or a specialist, please follow up as instructed. If your condition worsens or you can't get in to see the doctor, contact the Emergency Department. Education Materials Muscle Strain A muscle strain is an injury that occurs when a muscle is stretched beyond its normal length. Usually, a small number of muscle fibers are torn when this happens. There are three types of muscle strains. First-degree strains have the least amount of muscle fiber tearing and the least amount of pain. Second-degree and third-degree strains have more tearing and pain. Usually, recovery from muscle strain takes 1???2 weeks. Complete healing normally takes 5???6 weeks. What are the causes? This condition is caused when a sudden, violent force is placed on a muscle and stretches it too far. This may occur with a fall, while lifting, or during sports. What increases the risk? This condition is more likely to develop in athletes and people who are physically active. What are the signs or symptoms? Symptoms of this condition include: ? Pain. ? Tenderness. ? Bruising. ? Swelling. ? Trouble using the muscle. How is this diagnosed? This condition is diagnosed based on a physical exam and your medical history. Tests may also be done, including an X-ray, ultrasound, or MRI. How is this treated? This condition is initially treated with WOLFE therapy. This therapy involves: ? Protecting the muscle from being injured again. ? Resting the injured muscle. ? Icing the injured muscle. ? Applying pressure (compression) to the injured muscle. This may be done with a splint or elastic bandage. ? Raising (elevating) the injured muscle. Your health care provider may also recommend medicine for pain. Follow these instructions at home: Managing pain, stiffness, and swelling ? If directed, put ice on the injured area. To do this: ? If you have a removable splint, remove it as told by your health care provider. ? Put ice in a plastic bag. ? Place a towel between your skin and the bag. ? Leave the ice on for 20 minutes, 2???3 times a day. ? Remove the ice if your skin turns bright red. This is very important. If you cannot feel pain, heat, or cold, you have a greater risk of damage to the area. ? Move your fingers or toes often to reduce stiffness and swelling. ? Raise (elevate) the injured area above the level of your heart while you are sitting or lying down. ? Wear an elastic bandage as told by your health care provider. Make sure that it is not too tight. General instructions ? Take ryfs-jlp-hcddtzt and prescription medicines only as told by your health care provider. Treatment may include muscle relaxants or medicines for pain and inflammation that are taken by mouth or applied to the skin. ? Restrict your activity and rest the injured muscle as told by your health care provider. Gentle movements may be allowed. ? If physical therapy was prescribed, do exercises as told by your health care provider. ? Do not put pressure on any part of the splint until it is fully hardened. This may take several hours. ? Do not use any products that contain nicotine or tobacco. These products include cigarettes, chewing tobacco, and vaping devices, such as e-cigarettes. If you need help quitting, ask your health careprovider. ? Ask your health care provider when it is safe to drive if you have a splint. ? Keep all follow-up visits. This is important. How is this prevented? Warm up before exercising. This helps to prevent future muscle strains. Contact a health care provider if: ? You have more pain or swelling in the injured area. Get help right away if: ? You have numbness or tingling in the injured area. ? You lose a lot of strength in the injured area. Summary ? A muscle strain is an injury that occurs when a muscle is stretched beyond its normal length. ? This condition is caused when a sudden, violent force is placed on a muscle and stretches it too far. ? This condition is initially treated with WOLFE therapy, which involves protecting, resting, icing, compressing, and elevating. ? Gentle movements may be allowed. If physical therapy was prescribed, do exercises as told by your health care provider. This information is not intended to replace advice given to you by your health care provider. Make sure you discuss any questions you have with your health care provider. Document Revised: 12/30/2021 Document Reviewed: 12/30/2021 [employer] Patient Education ?? 2021 [employer] Cervical Sprain A cervical sprain is a stretch or tear in one or more of the ligaments in the neck. Ligaments are the tissues that connect bones. Cervical sprains can range from mild to severe. Severe cervical sprains can cause the spinal bones (vertebrae) in the neck to be unstable. This can result in spinal corddamage and in serious nervous system problems. The time that it takes for a cervical sprain to heal depends on the cause and extent of the injury.Most cervical sprains heal in 4???6 weeks. What are the causes? Cervical sprains may be caused by trauma, such as an injury from a motor vehicle accident, a fall, or a sudden forward and backward whipping movement of the head and neck (whiplash injury). Mild cervical sprains may be caused by wear and tear over time. What increases the risk? The following factors may make you more likely to develop this condition: ? Participating in activities that have a high risk of trauma to the neck. These include contact sports, auto racing, gymnastics, and diving. ? Taking risks when driving or riding in a motor vehicle. ? Osteoarthritis of the spine. ? Poor strength and flexibility of the neck. ? A previous neck injury. ? Poor posture. ? Spending long periods in certain positions that put stress on the neck, such as sitting at a computer for a long time. What are the signs or symptoms? Symptoms of this condition include: ? Pain, soreness, stiffness, tenderness, swelling, or a burning sensation in the front, back, or sides of the neck, shoulders, or upper back. ? Sudden tightening of neck muscles (spasms). ? Limited ability to move the neck. ? Headache. ? Dizziness. ? Nausea or vomiting. ? Weakness, numbness, or tingling in a hand or an arm. Symptoms may develop right away after injury, or they may develop over a few days. In some cases, symptoms may go away with treatment and return (recur) over time. How is this diagnosed? This condition may be diagnosed based on: ? Your medical history. ? Your symptoms. ? Any recent injuries or known neck problems that you have, such as arthritis in the neck. ? A physical exam. ? Imaging tests, such as X-rays, MRI, and CT scan. How is this treated? This condition is treated by resting and icing the injured area and doing physical therapy exercises. Heat therapy may be used 2???3 days after the injury occurred if there is no swelling. Depending on the severity of your condition, treatment may also include: ? Keeping your neck in place (immobilized) for periods of time. This may be done using: ? A cervical collar. This supports your chin and the back of your head. ? A cervical traction device. This is a sling that holds up your head. The device removes weight and pressure from your neck, and it may help to relieve pain. ? Medicines that help to relieve pain and inflammation. ? Medicines that help to relax your muscles (muscle relaxants). ? Surgery. This is rare. Follow these instructions at home: Medicines ? Take uafg-jml-mwmmqsk and prescription medicines only as told by your health care provider. ? Ask your health care provider if the medicine prescribed to you: ? Requires you to avoid driving or using heavy machinery. ? Can cause constipation. You may need to take these actions to prevent or treat constipation: ? Drink enough fluid to keep your urine pale yellow. ? Take dgon-rmu-euosost or prescription medicines. ? Eat foods that are high in fiber, such as beans, whole grains, and fresh fruits and vegetables. ? Limit foods that are high in fat and processed sugars, such as fried or sweet foods. If you have a cervical collar: ? Wear the collar as told by your health care provider. Do not remove it unless told. ? Ask before making any adjustments to your collar. ? If you have long hair, keep it outside of the collar. ? Ask your health care provider if you may remove the collar for cleaning and bathing. If so: ? Follow instructions about how to remove it safely. ? Clean it by hand with mild soap and water and air-dry it completely. ? If your collar has removable pads, remove them every 1???2 days and wash them by hand with soap andwater. Let them air-dry completely before putting them back in the collar. ? Tell your health care provider if your skin under the collar has irritation or sores. Managing pain, stiffness, and swelling ? If directed, use a cervical traction device as told. ? If directed, put ice on the affected area. To do this: ? Put ice in a plastic bag. ? Place a towel between your skin and the bag. ? Leave the ice on for 20 minutes, 2???3 times a day. ? If directed, apply heat to the affected area before you do your physical therapy or as often as told by your health care provider. Use the heat source that your health care provider recommends, such as a moist heat pack or a heating pad. ? Place a towel between your skin and the heat source. ? Leave the heat on for 20???30 minutes. ? Remove the heat if your skin turns bright red. This is especially important if you are unable to feel pain, heat, or cold. You may have a greater risk of getting burned. Activity ? Do not drive while wearing a cervical collar. If you do not have a cervical collar, ask if it is safe to drive while your neck heals. ? Do not lift anything that is heavier than 10 lb (4.5 kg), or the limit that you are told, until your health care provider says that it is safe. ? Rest as told by your health care provider. ? If physical therapy was prescribed, do exercises as told by your health care provider or physical therapist. ? Return to your normal activities as told by your health care provider. Avoid positions and activities that make your symptoms worse. Ask your health care provider what activities are safe for you. General instructions ? Do not use any products that contain nicotine or tobacco, such as cigarettes, e- cigarettes, and chewing tobacco. These can delay healing. If you need help quitting, ask your health care provider. ? Keep all follow-up visits as told by your health care provider or physical therapist. This is important. How is this prevented? To prevent a cervical sprain from happening again: ? Use and maintain good posture. Make any needed adjustments to your workstation to help you do this. ? Exercise regularly as told by your health care provider or physical therapist. ? Avoid risky activities that may cause a cervical sprain. Contact a health care provider if you have: ? Symptoms that get worse or do not get better after 2 weeks of treatment. ? Pain that gets worse or does not get better with medicine. ? New, unexplained symptoms. ? Sores or irritated skin on your neck from wearing your cervical collar. Get help right away if: ? You have severe pain. ? You develop numbness, tingling, or weakness in any part of your body. ? You cannot move a part of your body (you have paralysis). ? You have neck pain along with severe dizziness or headache. Summary ? A cervical sprain is a stretch or tear in one or more of the ligaments in the neck. ? Cervical sprains may be caused by trauma, such as an injury from a motor vehicle accident, a fall, or a sudden forward and backward whipping movement of the head and neck (whiplash injury). ? Symptoms may develop right away after injury, or they may develop over a few days. ? This condition may be treated with rest, ice, heat, medicines, physical therapy, and surgery. This information is not intended to replace advice given to you by your health care provider. Make sure you discuss any questions you have with your health care provider. Document Revised: 06/20/2020 Document Reviewed: 06/20/2020 [employer] Patient Education ?? 2021 [employer] Patient/Principal Electrical Engineer Signature Patient Name:WADE KEN Case I have received this information and my questions have been answered. Patient/Principal Electrical Engineer Name: Patient/Principal Electrical Engineer Signature: Relationship to Patient: Witness Name/Signature: Date: Electronically Signed on: 12/25/2022 11:38 ESTSigned by:PL Discharge summary * Event Display: Discharge Note Patient Care team information Care Team Personnel Name: Lars Medina Position: Nurse Member Role: Registered Nurse Name: Min Velazco MD Position: Physician Member Role: ED Physician Address: Address: [address] [place] [id number] Care Team Related Persons Name: YUNIOR ENCISO
--- OUTSIDE RECORDS SUMMARY | 2024-11-17 17:43 | XMS_ITS | Encounter Summary ---
Author Organization [facility] Address [address] [place] [address] Care Team Providers Care Slab Lifting Supervisor Name Role Phone Tray Faustin MD Primary Care Provider [phone] Encounter Details Date Type Department Care Team (Latest Contact Info) Description 04/16/2021 Abstract [facility] INTERFACE Social History Tobacco Use Types Packs/Day Years [...] on filedocumented in this encounter Care Teams Slab Lifting Supervisor Relationship Specialty Start Date End Date Tray Faustin MD PCP - General 01/18/21 documented as of this encounter
--- OUTSIDE RECORDS SUMMARY | 2024-11-17 17:43 | XMS_ITS | Encounter Summary ---
Author Organization [facility] Address [address] [place] [address] Care Team Providers Care Solar Energy Engineer Name Role Phone Tray Faustin MD Primary Care Provider [phone] Encounter Details Date Type Department Care Team (Late st Contact Info) Description 10/29/2021 [facility] Encounter [facility] [place] [address] [place] [id number] Social History Tobacco Use Types Packs/Day Years Used Date Smoking Tobacco: Never Assessed Sex and Gender Information Value Date Recorded Sex Assigned at Female 12/25/2021 12:53 AM EST Gender Identity Female 12/25/2021 12:53 AM EST Sexual Orientation Bisexual 12/25/2021 12 :53 AM EST documented as of this encounter Progress Notes * Jeffy Singleton MD - 10/29/2021 2:50 PM EST Dear Jesu Faustin Your imaging did not identify any abnormality. If you have any questions, please feel free to call our office at [phone]. Jeffy Singleton MD documented in this encounter Plan of Treatment Not on file documented as of this encounter Procedures Procedure Name Priority Date/Time Associated Diagnosis Comments XR CHEST (2 VW) Routine 10/29/2021 2:50 PM EST documented in this encounter Results * XR CHEST (2 VW) (10/29/2021 2:50 PM EST) Anatomical Region Laterality Modality Chest Radiographic Roxi ging Impressions 10/29/2021 3:10 PM EST No acute intrathoracic disease. Narrative 10/29/2021 3:10 PM EST Clinical history: Cough INDICATION: ?? Cough COMPARISON: 08/05/2011 FINDINGS: PA and lateral views of the chest are obtained. The cardiopericardial silhouette is within normal limits. There is no pleural effusion, pneumothorax or focal consolidation present. Procedure Note Murtaza Bashir MD - 02/16/2022 Clinical history: Cough INDICATION: Cough COMPARISON: 08/05/2011 FINDINGS: PA and lateral views of the chest are obtained. The cardiopericardial silhouette is within normal limits. There is nopleural effusion, pneumothorax or focal consolidation present. IMPRESSION: No acute intrathoracic disease. Jeffy Singleton MD IMG DIAGNOSTIC IMAGI NG ORDERABLES documented in this encounter Visit Diagnoses Not on filedocumented in this encounter Care Teams Solar Energy Engineer Relationship Specialty Start Date End Date Tray Faustin MD PCP - General 01/18/21 documented as of this encounter
--- OUTSIDE RECORDS SUMMARY | 2024-11-17 17:43 | XMS_ITS | Encounter Summary ---
Author Organization [facility] Address [address] [place] [address] Care Team Providers Care Peoplesoft Functional Analyst Name Role Phone Tray Faustin MD Primary Care Provider [phone] Encounter Details Date Type Department Care Team (Late st Contact Info) Description 10/29/2021 Office Visit [facility] [address] [place] [address] [place] [address] [place] [address] Cough, unspecified (Primary Dx); Epigastric pain; Prediabetes; Abnormal weight loss Social History Tobacco Use Types Packs/Day Years [...] Mass Index 33.12 10/29/2021 1:39 PM EST documented in this encounter Progress Notes * Jeffy Singleton MD - 10/29/2021 1:30 PM EST Images from the original note were not included. Progress Notes by Jeffy Singleton MD at 10/29/21 1330 Author: Jeffy Singleton MD Service: -- Author Type: Physician Filed: 10/30/21 2104 Encounter Date: 10/29/2021 Status: Signed Auto Design Checker: Jeffy Singleton MD (Physician) Jesu Faustin 21 y.o. female 2000 [address] [facility] [phone] [facility] Encounter Date: 10/29/2021 Established Patient Visit Note: Jeffy Singleton MD Reason for Appointment: Chief Complaint Patient presents with ? Epigastric Pain History of Present Illness: History provided by patient Jesu Faustin is a 21 y.o. female who presents to clinic today for: Epigastric Pain, Coughing, Unintentional Weight Loss Duration: started Jul, 2020 Will wake up coughing; she reports having pressure in epigastric region [facility] started antibiotic, Prilosec, and steroid, but her symptoms returned.She reports that whenever she eats something she will cough and it feels difficult to keep her fooddown. She reports that 45 to 60 minutes after eating it feels like her food come back up. She denies any concern for . She endorses waking up with neight sweats, but she reports that this has been her whole life She also reports noticing some rashes at the beginning of her symtpoms She reports that she is no longer taking OCP d/t migraines and sick stomach Review of Systems See HPI Allergies: Patient has no known allergies. Medications: Current Outpatient Medications: ? pantoprazole (PROTONIX) 40 mg tablet, Take 1 Tablet by mouth daily., Disp: 14 Tablet, Rfl: 0 History Patient Care Team: Tray Faustin MD as PCP - General (Family Medicine) Tray Faustin MD as PCP - [facility] Empaneled Provider Past Medical History: she has a past medical history of AR (allergic rhinitis) (08/13/2011), Bandemia (12/01/2018), Cough variant asthma (08/13/2011), Dermatofibroma (12/01/2018), Gastroesophageal refluxdisease (12/09/2018), IBS (irritable bowel syndrome) (03/04/2011), and PCOS (polycystic ovarian syndrome). 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 Family Medical History: family history includes Mult Sclerosis in her maternal uncle; No Known Problems in her brother, brother, brother, brother, father, maternal grandfather, paternal grandfather, paternal grandmother, and sister; Other in her mother; Thyroid Disease in her maternal grandmother. Social History: she reports that she has quit smoking. She has never used smokeless tobacco. She reports previous drug use. Drug: Marijuana. She reports that she does not drink alcohol. Objective: Visit Vitals BP 103/68 Pulse 92 Temp 98.3 ??F (36.8 ??C) Resp 16 Ht 5' 5 (1.651 m) Wt 199 lb (90.3 kg) SpO2 98% BMI 33.12 kg/m?? Wt Readings from Last 3 Encounters: 10/29/21 199 lb (90.3 kg) 05/13/21 215 lb (97.5 kg) 01/17/21 220 lb (99.8 kg) Physical Exam Vitals and nursing note reviewed. Constitutional: General: She is not in acute distress. Appearance: Normal appearance. HENT: Head: Normocephalic and atraumatic. Nose: Nose normal. Mouth/Throat: Mouth: Mucous membranes are moist. Eyes: Extraocular Movements: Extraocular movements intact. Conjunctiva/sclera: Conjunctivae normal. Pupils: Pupils are equal, round, and reactive to light. Cardiovascular : Rate and Rhythm: Normal rate and regular rhythm. Pulses: Normal pulses. Heart sounds: Normal heart sounds. No murmur heard. No friction rub. No gallop. Pulmonary: Effort: Pulmonary effort is normal. No respiratory distress. Breath sounds: Normal breath sounds. No wheezing, rhonchi or rales. Abdominal: Comments: TTP over umbilicus, no guarding, no rebound Musculoskeletal: General: Normal range of motion. Cervical back: Normal range of motion and neck supple. No rigidity. No muscular tenderness. Lymphadenopathy: Cervical: No cervical adenopathy. Skin : General: Skin is warm. Coloration: Skin is not jaundiced. Neurological: General: No focal deficit present. Mental Status: She is alert. Mental status is at baseline. Cranial Nerves: Cranial nerves are intact. Motor: Motor function is intact. Coordination: Coordination is intact. Psychiatric: Mood and Affect: Mood normal. Behavior: Behavior normal. Thought Content: Thought content normal. Judgment: Judgment normal. Assessment & Plan: ICD-10-CM ICD-9-CM 1. Cough R05.9 786.2 XR CHEST PA LAT METABOLIC PANEL, COMPREHENSIVE TSH 3RD GENERATION LIPASE pantoprazole (PROTONIX) 40 mg tablet LIPASE TSH 3RD GENERATION METABOLIC PANEL, COMPREHENSIVE DISCONTINUED: pantoprazole (PROTONIX) 40 mg tablet 2. Epigastric pain R10.13 789.06 HCG URINE, QL H PYLORI AG, STOOL OVA & PARASITES, STOOL OCCULT BLOOD, STOOL CBC W/O DIFF CT ABD PELV W CONT REFERRAL TO GASTROENTEROLOGY CELIAC ANTIBODY PROFILE pantoprazole (PROTONIX) 40 mg tablet CBC W/O DIFF CELIAC ANTIBODY PROFILE DISCONTINUED: pantoprazole (PROTONIX) 40 mg tablet 3. Prediabetes R73.03 790.29 HEMOGLOBIN A1C WITH EAG HEMOGLOBIN A1C WITH EAG 4. Unintentional weight loss R63.4 783.21 URINALYSIS W/ RFLX MICROSCOPIC CT ABD PELV W CONT REFERRAL TO GASTROENTEROLOGY CELIAC ANTIBODY PROFILE URINALYSIS W/ RFLX MICROSCOPIC CELIAC ANTIBODY PROFILE ?? Epigastric Pain and Unintentional Weight Loss: Chronic, uncontrolled. Evaluate further as above.Referral to GI. ?? Cough: Chronic, uncontrolled. Evaluate with imaging and labs. Trial of Pantoprazole as above. ?? Prediabetes: Chronic, unclear control. Check labs I have discussed the diagnosis with the patient and the intended plan as seen in the above orders. The patient has received an after-visit summary along with patient information handout. I have discussed medication side effects and warnings with the patient as well. Disposition Follow-up and Dispositions ?? Return in about 4 weeks (around 11/26/2021) for follow up of abdominal pain. Jeffy Singleton MD * Historical Provider, [facility] - 10/29/2021 1:30 PM EST Chief Complaint Patient presents with ??? Epigastric Pain 1. Have you been to the ER, urgent care clinic since your last visit? Hospitalized since your lastvisit? Yes Where: [facility] Reason for visit: Epigastric pain 2. Have you seen or consulted any other health care providers outside of the [facility] since your last visit? No 3. For patients aged 45-75: Has the patient had a colonoscopy? NA based on age or sex If the patient is female: 4. For patients aged 40-74: Has the patient had a mammogram within the past 2 years? NA based on age or sex 5. For patients aged 21-30: Has the patient had a pap smear? Yes, HM satisfied with blue hyperlink 3 most recent PHQ Screens 11/19/2020 Little interest or pleasure in doing things Not at all Feeling down, depressed, irritable, or hopeless Not at all Total Score PHQ 2 0 Trouble falling or staying asleep, or sleeping too much - Feeling tired or having little energy - Poor appetite, weight loss, or overeating - Feeling bad about yourself - or that you are a failure or have let yourself or your family down - Trouble concentrating on things such as school, work, reading, or watching TV - Moving or speaking so slowly that other people could have noticed; or the opposite being so fidgetythat others notice - Thoughts of being better off , or hurting yourself in some way - PHQ 9 Score - How difficult have these problems made it for you to do your work, take care of your home and get along with others - * Jeffy Singleton MD - 10/29/2021 1:30 PM EST Called patient and discussed lab results. She will obtain imaging and follow up with GI as referred. documented in this encounter Plan of Treatment Not on file documented as of this encounter Procedures Procedure Name Priority Date/Time Associated Diagnosis Comments CELIAC ANTIBODY PROFILE Routine 10/29/2021 2:32 PM EST URINALYSIS W/ RFLX MICROSCOPIC Routine 10/29/2021 2:32 PM EST TSH 3RD GENERATION Routine 10/29/2021 2: 32 PM EST HEMOGLOBIN A1C W/EAG Routine 10/29/2021 2:32 PM EST CBC Routine 10/29/2021 2:32 PM EST LIPASE Routine 10/29/2021 2:32 PM EST COMPREHENSIVE METABOLIC PANEL Routine 10/29/2021 2:32 PM EST documented in this encounter Results * CELIAC ANTIBODY PROFILE (10/29/2021 2:32 PM EST) Immunoglobulin A, Qt. 176 87 - 352 mg/dL 10/31/2021 4:37 PM EST [facility] Comment: (NOTE) Performed At: [address] [id number] David Hadley MD Ph:[phone] DEAMIDATED GLIADIN ABS,IGA, [id number] 3 0 - 19 units 10/31/2021 4:37 PM EST [facility] Comment: (NOTE) ?Negative ? 0 - 19 ?Weak Positive ? 20 - 30 ?Moderate to Strong Positive ?? >30 Deamidated Gliadin Abs, IgG 1 0 - 19 units 10/31/2021 4:37 PM EST [facility] Comment: (NOTE) ?Negative ? 0 - 19 ?Weak Positive ? 20 - 30 ?Moderate to Strong Positive ?? >30 t-Transglutaminase (tTG) IgA <2 0 - 3 U/mL 10/31/2021 4:37 PM EST [facility] Comment: (NOTE) ? Negative ?0 - ??3 ? Weak Positive ?? 4 - 10 ? Positive ? >10 Tissue Transglutaminase (tTG) has been identified as the endomysial antigen. ??Studies have demonstr- ated that endomysial IgA antibodies have over 99% specificity for gluten sensitive enteropathy. T-TRANSGLUTAMINASE (TTG) IGG,[id number] <2 0 - 5 U/mL 10/31/2021 4:37 PM EST [facility] Comment: (NOTE) ? Negative ?0 - 5 ? Weak Positive ?? 6 - 9 ? Positive ? >9 Performed At: [address] [id number] David Hadley MD Ph:[phone] Serum (Blood Serum) 10/29/2021 2:32 PM EST 10/29/2021 10:34 PM EST Jeffy Singleton MD CHEMISTRY ORDERABLES [facility] Naomi Leone, Brand Recorder [address] [place] [phone] * (ABNORMAL) CBC (10/29/2021 2:32 PM EST) [facility] Signature WBC 11.5(H) 3.6 - 11.0 K/uL 10/29/2021 11:18 PM EST [facility] RBC 4.61 3.80 - 5.20 M/uL 10/29/2021 11:18 PM EST [facility] Hemoglobin 13.0 11.5 - 16.0 g/dL 10/29/2021 11:18 PM EST [facility] Hematocrit 41.8 35.0 - 47.0 % 10/29/2021 11:18 PM EST [facility] MCV 90.7 80.0 - 99.0 FL 10/29/2021 11:18 PM EST [facility] MCH 28.2 26.0 - 34.0 PG 10/29/2021 11:18 PM EST [facility] MCHC 31.1 30.0 - 36.5 g/dL 10/29/2021 11:18 PM EST [facility] RDW 13.1 11.5 - 14.5 % 10/29/2021 11:18 PM EST [facility] Platelets 268 150 - 400 K/uL 10/29/2021 11:18 PM EST [facility] MPV 12.1 8.9 - 12.9 FL 10/29/2021 11:18 PM EST [facility] Nucleated RBCs 0.0 0 PER 100 WBC 10/29/2021 11:18 PM EST [facility] NRBC Absolute 0.00 0.00 - 0.01 K/uL 10/29/2021 11:18 PM EST [facility] Whole Blood (Blood Whole) 10/29/2021 2:32 PM EST 10/29/2021 10:34 PM EST Jeffy Singleton MD HEMATOLOGY ORDERABLE S [facility] Naomi Leone, Brand Recorder [address] [place] [phone] * (ABNORMAL) Comprehensive Metabolic Panel (10/29/2021 2:32 PM EST) [facility] Sodium 138 136 - 145 mmol/L 10/29/2021 11:18 PM EST [facility] Potassium 4.5 3.5 - 5.1 mmol/L 10/29/2021 11:18 PM EST [facility] Chloride 107 97 - 108 mmol/L 10/29/2021 11:18 PM EST [facility] CO2 28 21 - 32 mmol/L 10/29/2021 11:18 PM EST [facility] Anion Gap 3(L) 5 - 15 mmol/L 10/29/2021 11:18 PM EST [facility] Glucose 90 65 - 100 mg/dL 10/29/2021 11:18 PM EST [facility] BUN 11 6 - 20 MG/DL 10/29/2021 11:18 PM EST [facility] Creatinine 0.86 0.55 - 1.02 MG/DL 10/29/2021 11:18 PM EST [facility] BUN/Creatinine Ratio 13 12 - 20 10/29/2021 11:18 PM EST [facility] GFR >60 >60 ml/min/1. 73m2 10/29/2021 11:18 PM EST [facility] eGFR NON-AA >60 >60 ml/min/1. 73m2 10/29/2021 11:18 PM EST [facility] Comment: Estimated GFR is calculated using the IDMS-traceable Modification of Diet in Renal Disease (MDRD) Study equation, reported for both Americans (GFRAA) and non- Americans (GFRNA), and normalized to 1.73m2 body surface area. The physician must decide which value applies to the patient. Calcium 9.4 8.5 - 10.1 MG/DL 10/29/2021 11:18 PM EST [facility] Total Bilirubin 0.3 0.2 - 1.0 MG/DL 10/29/2021 11:18 PM EST [facility] ALT 20 12 - 78 U/L 10/29/2021 11:18 PM EST [facility] AST 10(L) 15 - 37 U/L 10/29/2021 11:18 PM EST [facility] Alkaline Phosphatase 71 45 - 117 U/L 10/29/2021 11:18 PM EST [facility] Total Protein 7.0 6.4 - 8.2 g/dL 10/29/2021 11:18 PM EST [facility] Albumin 3.8 3.5 - 5.0 g/dL 10/29/2021 11:18 PM EST [facility] Globulin 3.2 2.0 - 4.0 g/dL 10/29/2021 11:18 PM EST [facility] Albumin/Globulin Ratio 1.2 1.1 - 2.2 10/29/2021 11:18 PM EST [facility] Serum (Serum or Plasma) 10/29/2021 2:32 PM EST 10/29/2021 10:34 PM EST Jeffy Singleton MD CHEMISTRY ORDERABLES [facility] Naomi Leone, Brand Recorder [address] [place] [phone] * Hemoglobin A1c with eAG (10/29/2021 2:32 PM EST) Pathologist [facility] Hemoglobin A1C 5.6 4.0 - 5.6 % 10/29/2021 11:18 PM EST [facility] Comment: NEW METHOD PLEASE NOTE NEW REFERENCE RANGE (NOTE) HbA1C Interpretive Ranges <5.7 ?Normal 5.7 - 6.4 ? Consider Prediabetes >6.5 ?Consider Diabetes Estimated Avg Glucose 114 mg/dL 10/29/2021 11:18 PM EST [facility] Whole Blood (Blood Whole) 10/29/2021 2:32 PM EST 10/29/2021 10:36 PM EST Jeffy Singleton MD CHEMISTRY ORDERABLES Performing Organization Address [facility] Number [facility] Naomi Leone, Brand Recorder [address] [place] [phone] * TSH 3RD GENERATION (10/29/2021 2:32 PM EST) [facility] TSH 0.66 0.36 - 3.74 uIU/mL 10/29/2021 11:18 PM EST [facility] Comment: Due to TSH heterogeneity, both structurally and degree of glycosylation, monoclonal antibodies used in the TSH assay may not accurately quantitate TSH. Therefore, this result should be correlated with clinical findings as well as with other assessments of thyroid function, e.g., free T4, free T3. Serum (Blood Serum) 10/29/2021 2:32 PM EST 10/29/2021 10:37 PM EST Jeffy Singleton MD CHEMISTRY ORDERABLES Performing Organization Address [facility] [place] Phone Number [facility] Naomi Leone, Brand Recorder [address] [place] [phone] * Lipase (10/29/2021 2:32 PM EST) Lipase 89 73 - 393 U/L 10/29/2021 11:18 PM EST [facility] Serum (Serum or Plasma) 10/29/2021 2:32 PM EST 10/29/2021 10:34 PM EST Jeffy Singleton MD CHEMISTRY ORDERABLES [facility] Naomi Leone, Brand Recorder [address] [place] [phone] * (ABNORMAL) Urinalysis W/ Rflx Microscopic (10/29/2021 2:32 PM EST) Color, UA YELLOW/STRA W 10/29/2021 11:18 PM EST [facility] Comment:Color Reference Rang e: Straw, Yellow or Dark Yellow Clarity, UA TURBID(A) CLEAR 10/29/2021 11:18 PM EST [facility] Specific [place], UA 1.023 1.003 - 1.030 10/29/2021 11:18 PM EST [facility] pH, UA 5.5 5.0 - 8.0 10/29/2021 11:18 PM EST [facility] Protein, UA Negative Negative mg/dL 10/29/2021 11:18 PM EST [facility] Glucose, Ur Negative Negative mg/dL 10/29/2021 11:18 PM EST [facility] Ketones, Urine TRACE(A) Negative mg/dL 10/29/2021 11:18 PM EST [facility] Bilirubin, Urine Negative Negative 10/29/2021 11:18 PM EST [facility] Blood, Urine Negative Negative 10/29/2021 11:18 PM EST [facility] Urobilinogen, UA, POCT 0.2 0.2 - 1.0 EU/dL 10/29/2021 11:18 PM EST [facility] Nitrite, Urine Negative Negative 10/29/2021 11:18 PM EST [facility] Leukocyte Esterase, Urine Negative Negative 10/29/2021 11:18 PM EST [facility] WBC, UA 0-4 0 - 4 /hpf 10/29/2021 11:18 PM EST [facility] RBC, UA 0-5 0 - 5 /hpf 10/29/2021 11:18 PM EST [facility] Epithelial Cells, UA MODERATE(A) FEW /lpf 10/29/2021 11:18 PM EST [facility] Comment: Epithelial cell category consists of squamous cells and /or transitional urothelial cells. Renal tubular cells, if present, are separately identified as such. BACTERIA, URINE 1+(A) Negative /hpf 10/29/2021 11:18 PM EST [facility] Hyaline Casts, UA 2-5 0 - 5 /lpf 10/29/2021 11:18 PM EST [facility] Urine (Urine) 10/29/2021 2:3 2 PM EST 10/29/2021 10:34 PM EST Jeffy Singleton MD URINE ORDERABLES [facility] Naomi Leone, Brand Recorder [address] [place] [phone] documented in this encounter Visit Diagnoses Diagnosis Cough, unspecified- Primary Epigastric pain Abdominal pain, epigastric Prediabetes Other abnormal glucose Abnormal weight loss Loss of weight documented in this encounter Care Teams [employer] Functional Analyst Relationship Specialty Start Date End Date Tray Faustin MD PCP - General 01/18/21 documented as of this encounter
--- OUTSIDE RECORDS SUMMARY | 2024-11-17 17:44 | XMS_ITS | Encounter Summary ---
Author Organization [facility] Address [address] [place] [address] Care Team Providers Care Aircraft Mechanic Armament Name Role Phone Tray Faustin MD Primary Care Provider Encounter Details Date Type Department Care Team (Late st Contact Info) Description 01/08/2012 Orders Only BS CC AMB HISTORICAL Historical Provider, Hsp Social [...] Sign Reading Time Taken Comments Blood Pressure 100/70 01/08/2012 3:23 PM EDT Pulse 73 01/08/2012 3:23 PM EDT Temperature - - Respiratory Rate - - Oxygen Saturation - - Inhaled Oxygen Concentration - - Weight 86.6 kg (191 lb) 01/08/2012 3:23 PM EDT 1 91lb Height 165.1 cm (5' 5) 01/08/2012 3:23 PM EDT 6 5i Body Mass Index 31.78 01/08/2012 3:23 PM EDT Body Mass Index Percentile 98.04% 01/08/2012 3:2 3 PM EDT Growth Chart: [facility] (Girls, 2- 20 Years) documented in this encounter Plan of Treatment Not on file documented as of this encounter Visit Diagnoses Not on filedocumented in this encounter Care Teams Aircraft Mechanic Armament Relationship Specialty Start Date End Date Tray Faustin MD PCP - General 01/18/21 documented as of this encounter
--- OUTSIDE RECORDS SUMMARY | 2024-11-17 17:44 | XMS_ITS | Encounter Summary ---
Author Organization Tito H[facility]ard[facility]iguelito [facility] Address [address] [place] [address] Care Team Providers Care Watch Repairer Apprentice Name Role Phone Tray Faustin MD Primary Care Provider Encounter Details Date Type Department Care Team (Late st Contact Info) Description 03/06/2015 Orders Only [facility] CC AMB HISTORICAL Historical Provider, [...] Sign Reading Time Taken Comments Blood Pressure 108/66 03/06/2015 11:16 AM EDT Pulse 89 03/06/2015 11:16 AM EDT Temperature - - Respiratory Rate - - Oxygen Saturation - - Inhaled Oxygen Concentration - - Weight 76.2 kg (168 lb) 03/06/2015 11:16 AM EDT Height 165.1 cm (5' 5) 03/06/2015 11:16 AM EDT Body Mass Index 27.96 03/06/2015 11:16 AM EDT Body Mass Index Percentile 92.90% 03/06/2015 11: 16 AM EDT Growth Chart: [facility] (Girls, 2- 20 Years) documented in this encounter Plan of Treatment Not on file documented as of this encounter Procedures Procedure Name Priority Date/Time Associated Diagnosis Comments CULTURE, URINE Routine 03/06/2015 1:58 PM EDT documented in this encounter Results * (ABNORMAL) Culture, Urine (03/06/2015 1:58 PM EDT) Urine Culture, Routine (ESCHERICH IA COLI)(A) 03/08/2015 1:40 PM EDT [facility] 1 Comment: Escherichia coli Identified by an automated biochemical system. Greater than 100,000 colony forming units per mL Urine 03/06/2015 1:58 PM EDT 03/06/2015 5:46 PM EDT Narrative Organism Antibiotic Method Susceptibility (escherichia coli) amoxicillin-clavulanate CULTURE, UR INE I: Intermediate (escherichia coli) ampicillin CULTURE, URINE R: Resistant (escherichia coli) ceFAZolin CULTURE, URINE R: Resistant (escherichia coli) cefepime CULTURE, URINE S: Sensitive (escherichia coli) cefTRIAXone CULTURE, URINE S: Sensitive (escherichia coli) cefuroxime CULTURE, URINE S: Sensitive (escherichia coli) cephalothin CULTURE, URINE R: Resistant (escherichia coli) ciprofloxacin CULTURE, URINE S: Sensitive (escherichia coli) ertapenem CULTURE, URINE S: Sensitive (escherichia coli) gentamicin CULTURE, URINE S: Sensitive (escherichia coli) imipenem CULTURE, URINE S: Sensitive (escherichia coli) levofloxacin CULTURE, URINE S: Sensitive (escherichia coli) nitrofurantoin CULTURE, URINE S: Sensitive (escherichia coli) piperacillin CULTURE, URINE R: Resistant (escherichia coli) tetracycline CULTURE, URINE S: Sensitive (escherichia coli) tobramycin CULTURE, URINE S: Sensitive (escherichia coli) trimethoprim-sulfame thoxazol e CULTURE, URINE R: Resistant Comment:N39.0^Urinary tract infection, site not specified^ICD-10-CM^^^^^^Urinary tract infection, site not specified Marian Child APRN - STEEL BUFFER MICROBIOLOGY - G ENERAL ORDERABLES [facility] 1 documented in this encounter Visit Diagnoses Not on filedocumented in this encounter Care Teams Watch Repairer Apprentice Relationship Specialty Start Date End Date Tray Faustin MD PCP - General 01/18/21 documented as of this encounter
--- OUTSIDE RECORDS SUMMARY | 2024-11-17 17:44 | XMS_ITS | Encounter Summary ---
Author Organization Tito Lupillo [facility] Address [address] [place] [address] Care Team Providers Care It Training Specialist Name Role Phone Tray Faustin MD Primary Care Provider [phone] Encounter Details Date Type Department Care Team (Late st Contact Info) Description 01/30/2012 Orders Only [facility] CC AMB HISTORICAL Historical [...] Sign Reading Time Taken Comments Blood Pressure 110/64 01/30/2012 1:48 PM EDT Pulse 86 01/30/2012 1:48 PM EDT Temperature - - Respiratory Rate - - Oxygen Saturation - - Inhaled Oxygen Concentration - - Weight 85.5 kg (188 lb 6.4 oz) 01/30/2012 1:48 P M EDT 188.4lb Height - - Body Mass Index - - documented in this encounter Plan of Treatment Not on file documented as of this encounter Visit Diagnoses Not on filedocumented in this encounter Care Teams It Training Specialist Relationship Specialty Start Date End Date Tray Faustin MD PCP - General 01/18/21 documented as of this encounter
--- OUTSIDE RECORDS SUMMARY | 2024-11-17 17:44 | XMS_ITS | Encounter Summary ---
Author Organization [facility]ito [facility] Address [address] [place] [address] Care Team Providers Care Neuro Urologist Name Role Phone Tray Faustin MD Primary Care Provider Encounter Details Date Type Department Care Team (Late st Contact Info) Description 06/20/2014 Orders Only [facility] CC AMB HISTORICAL Historical [...] Sign Reading Time Taken Comments Blood Pressure 100/64 06/20/2014 2:58 PM EDT Pulse 88 06/20/2014 2:58 PM EDT Temperature - - Respiratory Rate - - Oxygen Saturation - - Inhaled Oxygen Concentration - - Weight 81.8 kg (180 lb 6.4 oz) 06/20/2014 2:58 P M EDT Height 165.1 cm (5' 5) 06/20/2014 2:58 PM EDT Body Mass Index 30.02 06/20/2014 2:58 PM EDT Body Mass Index Percentile 95.64% 06/20/2014 2:5 8 PM EDT Growth Chart: [facility] (Girls, 2- 20 Years) documented in this encounter Plan of Treatment Not on file documented as of this encounter Visit Diagnoses Not on filedocumented in this encounter Care Teams Neuro Urologist Relationship Specialty Start Date End Date Tary Faustin MD PCP - General 01/18/21 documented as of this encounter
--- OUTSIDE RECORDS SUMMARY | 2024-11-17 17:44 | XMS_ITS | Encounter Summary ---
Author Organization Tito [facility]illiardmiguelito [facility] Address [address] [place] [address] Care Team Providers Care President College Or University Name Role Phone Tray Faustin MD Primary Care Provider [phone] Encounter Details Date Type Department Care Team (Late st Contact Info) Description 02/19/2015 Orders Only [facility] CC AMB HISTORICAL Historical Provider, Hsp Social [...] Sign Reading Time Taken Comments Blood Pressure 96/54 02/19/2015 11:44 AM EDT Pulse 85 02/19/2015 11:44 AM EDT Temperature - - Respiratory Rate - - Oxygen Saturation - - Inhaled Oxygen Concentration - - Weight 76.2 kg (168 lb) 02/19/2015 11:44 AM EDT Height 165.1 cm (5' 5) 02/19/2015 11:44 AM EDT Body Mass Index 27.96 02/19/2015 11:44 AM EDT Body Mass Index Percentile 92.95% 02/19/2015 11: 44 AM EDT Growth Chart: [facility] 2[facility] (Girls, 2- 20 Years) documented in this encounter Plan of Treatment Not on file documented as of this encounter Procedures Procedure Name Priority Date/Time Associated Diagnosis Comments CULTURE, URINE Routine 02/19/2015 1:00 PM EDT documented in this encounter Results * Culture, Urine (02/19/2015 1:00 PM EDT) Urine Culture, Routine Culture shows less than 10,000 colony forming units of bacteria per milliliter of urine. This colony count is not generally considered to be clinically significant. 02/20/2015 4:40 PM EDT [facility] 1 Urine 02/19/2015 1:00 PM EDT 02/19/2015 4:39 PM EDT Marian Child APRN - HEAD OF BUSINESS DEVELOPMENT MICROBIOLOGY - G ENERAL ORDERABLES [facility] 1 documented in this encounter Visit Diagnoses Not on filedocumented in this encounter Care Teams President [employer] Relationship Specialty Start Date End Date Tray Faustin MD PCP - General 01/18/21 documented as of this encounter
--- OUTSIDE RECORDS SUMMARY | 2024-11-17 17:44 | XMS_ITS | Encounter Summary ---
Author Organization [facility]illo [facility] Address [address] [place] [address] Care Team Providers Care Liner Checker Name Role Phone Tray Faustin MD Primary Care Provider [phone] Encounter Details Date Type Department Care Team (Late st Contact Info) Description 02/28/2014 Orders Only [facility] CC AMB HISTORICAL Historical [...] Sign Reading Time Taken Comments Blood Pressure 112/70 02/28/2014 11:40 AM EDT Pulse 95 02/28/2014 11:40 AM EDT Temperature - - Respiratory Rate - - Oxygen Saturation - - Inhaled Oxygen Concentration - - Weight 80.8 kg (178 lb 3.2 oz) 02/29/20 14 11:40 AM EDT Height 165.1 cm (5' 5) 02/28/2014 11:4 0 AM EDT Body Mass Index 29.65 02/28/2014 11:40 AM EDT Body Mass Index Percentile 95.57% 02/28 11:40 AM EDT Growth Chart: [facility] (Girls, 2- 20 Years) documented in this encounter Plan of Treatment Not on file documented as of this encounter Visit Diagnoses Not on filedocumented in this encounter Care Teams Liner Checker Relationship Specialty Start Date End Date Tray Faustin MD PCP - General 01/18/21 documented as of this encounter
--- OUTSIDE RECORDS SUMMARY | 2024-11-17 17:44 | XMS_ITS | Encounter Summary ---
Author Organization Tito [facility] Address [address] [place] [address] Care Team Providers Care Oiler And Greaser Name Role Phone Tray Faustin MD Primary Care Provider [phone] Encounter Details Date Type Department Care Team (Late st Contact Info) Description 06/11/2019 Office Visit [facility] [address] [place], [place] [id number] Luc Alvarenga MD [address], [place] [id number] Acute upper respiratory infection, unspecified (Primary Dx); Polycystic ovarian syndrome; Tobacco use; Obesity, unspecified; Amenorrhea, unspecified Social History Tobacco Use Types Packs/Day Years Used Date Smoking Tobacco: Never Assessed Sex and Gender Information Value Date Recorded Sex Assigned at Female 12/25/2021 12:53 AM EST Gender Identity Female 12/25/2021 12:53 AM EST Sexual Orientation Bisexual 12/25/2021 12 :53 AM EST documented as of this encounter Progress Notes * Luc Alvarenga MD - 06/11/2019 12:30 PM EDT NEY Faustin 19 y.o. female presents to the office today for acute complaint of eye swelling, nasal congestion and headache. Blood pressure 113/65, pulse 93, temperature 98 ??F (36.7 ??C), temperature source Oral, resp. rate12, height 5' 5 (1.651 m), weight 193 lb 6.4 oz (87.7 kg), last menstrual period 05/20/2019, SpO2 96 %. Body mass index is 32.18 kg/m??. Chief Complaint Patient presents with ??? Eye Swelling onset today ??? Nasal Congestion onset today ??? Headache onset today Pt inquires about doctor note so she can submit to work today. Upper respiratory tract infection: Pt reports experiencing onset of eye swelling, nasal congestion and headache when waking up this morning. Pt thought it was allergy and tried to get back to sleep, but when she woke up the sx's persisted so pt decided to come in and see me. Pt denies SOB or chills/fever; admits to throat tenderness while swallowing and notes clear/green mucus when blowing her nose. PCOS: Pt has PCOS and was on BC for it. Pt came in last month and was taken off BC because pt thought she was . Pt later found out that she was not and was supposed to come in for anappointment to resume BC, but pt missed the appointment due to work. Pt states that when she does not take BC, she experiences very irregular menstruation and that affects her physically and emotionally. Pt's LMP was last week of April. Obesity: I have reviewed/discussed the above normal BMI with the patient. Tobacco abuse: The patient was counseled on the dangers of tobacco use, and was advised to quit. Reviewed strategies to maximize success, including stress management, substitution of other forms of reinforcement, support of family/friends and written materials. No Known Allergies Past Medical History: Diagnosis Date ??? Constipation ??? Cough variant asthma 08/13/2011 ??? Respiratory abnormalities bronchitis ??? Second hand smoke exposure smokes outside ??? Urinary tract infection ??? Vision decreased History reviewed. No pertinent surgical history. Family History Problem Relation Age of Onset ??? Other Mother hep c, mood disorder ??? No Known Problems Father ??? No Known Problems Sister ??? No Known Problems Brother ??? No Known Problems Maternal Grandmother ??? No Known Problems Maternal Grandfather ??? No Known Problems Paternal Grandmother ??? No Known Problems Paternal Grandfather ??? No Known Problems Brother ??? No Known Problems Brother ??? No Known Problems Brother Social History Tobacco Use ??? Smoking status: Current Every Day Smoker ??? Smokeless tobacco: Never Used ??? Tobacco comment: 2 or 3 cigg a day Substance Use Topics ??? Alcohol use: No Review of Systems Constitutional: Negative for chills and fever. HENT: Positive for congestion and sore throat. Negative for hearing loss, sinus pain and tinnitus. Eyes: Negative for blurred vision and double vision. Swollen eyes Respiratory: Positive for sputum production. Negative for cough and shortness of breath. Cardiovascular: Negative for chest pain and palpitations. Gastrointestinal: Negative for nausea and vomiting. Genitourinary: Negative for dysuria and frequency. Musculoskeletal: Negative for back pain and falls. Skin: Negative for itching and rash. Neurological: Positive for headaches. Negative for dizziness and loss of consciousness. Psychiatric/Behavioral: Negative for depression. The patient is not nervous/anxious. Physical Exam Constitutional: She is oriented to person, place, and time. She appears well- developed and well-nourished. HENT: Head: Normocephalic and atraumatic. Right Ear: External ear normal. Left Ear: External ear normal. Nose: Nose normal. Mouth/Throat: Oropharynx is clear and moist. Eyes: Conjunctivae and EOM are normal. Neck: Normal range of motion. Neck supple. Cardiovascular: Normal rate, regular rhythm, normal heart sounds and intact distal pulses. Pulmonary/Chest: Effort normal and breath sounds normal. Abdominal: Soft. Bowel sounds are normal. Musculoskeletal: Normal range of motion. Neurological: She is alert and oriented to person, place, and time. Skin: Skin is warm and dry. Psychiatric: She has a normal mood and affect. Her behavior is normal. Judgment and thought contentnormal. Nursing note and vitals reviewed. ASSESSMENT and PLAN Diagnoses and all orders for this visit: 1. Upper respiratory tract infection, unspecified type Advised pt to use OTC Muxinex to resolve sx's. Advised pt to rest, drink plenty of fluid, vitC and sultana tea with local honey to help speeding up recovery. Will provide pt with doctor note to submitto work. 2. PCOS (polycystic ovarian syndrome) Urine test negative for . Provided pt with prescription for BC and advised to take as instructed. - drospirenone-ethinyl estradiol (NANI) 3-0.02 mg tab; Take 1 Tab by mouth daily. Indications: disease of ovaries with cysts 3. Tobacco abuse The patient was counseled on the dangers of tobacco use, and was advised to quit. Reviewed strategies to maximize success, including stress management, substitution of other forms of reinforcement, support of family/friends and written materials. 4. Obesity, Class I, BMI 30-34.9 I have reviewed/discussed the above normal BMI with the patient. I have recommended the following interventions: dietary management education, guidance, and counseling, encourage exercise and monitorweight . Follow-up and Dispositions ?? Return in about 3 months (around 09/11/2019). Medication risks/benefits/costs/interactions/alternatives discussed with patient. Advised patient to call back or return to office if symptoms worsen/change/persist. If patient cannot reach us or should anything more severe/urgent arise he/she should proceed directly to the nearest emergency department. Discussed expected course/resolution/complications of diagnosis in detail with patient. Patient given a written after visit summary which includes her diagnoses, current medications and vitals. Patient expressed understanding with the diagnosis and plan. Written by jl Alfaro, as dictated by Luc Alvarenga M.D. 12:36 PM - 1:07 PM Total time spent with the patient 31 minutes, greater than 50% of time spent counseling patient. documented in this encounter Plan of Treatment Not on file documented as of this encounter Procedures Procedure Name Priority Date/Time Associated Diagnosis Comments AMB POC URINE TEST, VISUAL COLOR COMPARISON Routine 06/11/2019 1:09 PM EDT documented in this encounter Results * AMB POC URINE TEST, VISUAL COLOR COMPARISON (06/11/2019 1:09 PM EDT) Valid Internal Control, POC Yes 06/11/2019 1:09 PM EDT [facility] HCG, , Urine, POC Negative Negative 06/11/2019 1:09 PM EDT [facility] Urine 06/11/2019 1:09 PM EDT Luc Alvarenga MD POINT OF CARE TEST [facility] documented in this encounter Visit Diagnoses Diagnosis Acute upper respiratory infection, unspecified- Primary Polycystic ovarian syndrome Polycystic ovaries Tobacco use Tobacco use disorder Obesity, unspecified Amenorrhea, unspecified documented in this encounter Care Teams Oiler And Greaser Relationship Specialty Start Date End Date Tray Faustin MD PCP - General 01/18/21 documented as of this encounter
--- OUTSIDE RECORDS SUMMARY | 2024-11-17 17:44 | XMS_ITS | Encounter Summary ---
Author Organization [facility]ito [facility] Address [address] [place] [address] Care Team Providers Care Bailiff Name Role Phone Tray Faustin MD Primary Care Provider Encounter Details Date Type Department Care Team (Late st Contact Info) Description 01/19/2014 Orders Only [facility] CC AMB HISTORICAL Historical [...] Sign Reading Time Taken Comments Blood Pressure 122/70 01/19/2014 3:35 PM EDT Pulse 112 01/19/2014 3:35 PM EDT Temperature - - Respiratory Rate - - Oxygen Saturation - - Inhaled Oxygen Concentration - - Weight 82.5 kg (181 lb 12.8 oz) 01/19/2014 3:35 PM EDT Height 165.1 cm (5' 5) 01/19/2014 3:35 PM EDT Body Mass Index 30.25 01/19/2014 3:35 PM EDT Body Mass Index Percentile 95.99% 01/19/2014 3:3 5 PM EDT Growth Chart: [facility] (Girls, 2- 20 Years) documented in this encounter Plan of Treatment Not on file documented as of this encounter Visit Diagnoses Not on filedocumented in this encounter Care Teams Bailiff Relationship Specialty Start Date End Date Tray Faustin MD PCP - General 01/18/21 documented as of this encounter
--- OUTSIDE RECORDS SUMMARY | 2024-11-17 17:44 | XMS_ITS | Encounter Summary ---
Author Organization Tito [facility]up[facility] Address [address] [address] Care Team Providers Care Certified Bench Jeweler Technician Name Role Phone Tray Faustin MD Primary Care Provider Encounter Details Date Type Department Care Team (Late st Contact Info) Description 09/26/2012 Orders Only [facility] HISTORICAL CONVERSIONS [address] [place] [id number] Historical Provider, Hsp Social History Tobacco Use Types Packs/Day Years Used Date Smoking Tobacco: Never Assessed Sex and Gender Information Value Date Recorded Sex Assigned at Female 12/25/2021 12:53 AM EST Gender Identity Female 12/25/2021 12:53 AM EST Sexual Orientation Bisexual 12/25/2021 12 :53 AM EST documented as of this encounter Last Filed Vital Signs Vital Sign Reading Time Taken Comments Blood Pressure 126/72 09/26/2012 11:39 PM EST Pulse 110 09/26/2012 11:39 PM EST Temperature - - Respiratory Rate - - Oxygen Saturation - - Inhaled Oxygen Concentration - - Weight 80.2 kg (176 lb 12.9 oz) 012 11:39 PM EST Height - - Body Mass Index 29.42 09/23/2012 7:00 PM EST Body Mass Index Percentile 96.23% 09/26 11:39 PM EST Growth Chart: [facility] (Girls, 2- 20 Years) documented in this encounter Plan of Treatment Not on file documented as of this encounter Visit Diagnoses Not on filedocumented in this encounter Care Teams Certified Bench Jeweler Technician Relationship Specialty Start Date End Date Tray Faustin MD PCP - General 01/18/21 documented as of this encounter
--- OUTSIDE RECORDS SUMMARY | 2024-11-17 17:44 | XMS_ITS | Encounter Summary ---
Author Organization Tito Lupillo [facility] Address [address] [email or web address] [address] Care Team Providers Care Operator Vacuum Name Role Phone Tray Faustin MD Primary Care Provider Encounter Details Date Type Department Care Team (Late st Contact Info) Description 09/09/2011 Orders Only [facility] CC AMB HISTORICAL Historical [...] Sign Reading Time Taken Comments Blood Pressure 118/58 09/09/2011 7:31 PM EST Pulse - - Temperature - - Respiratory Rate - - Oxygen Saturation - - Inhaled Oxygen Concentration - - Weight 90.4 kg (199 lb 3.2 oz) 09/09/2011 7:31 P M EST 199.2lb Height 163.2 cm (5' 4.25) 09/09/2011 7:31 PM ES T Body Mass Index 33.92 09/09/2011 7:31 PM EST Body Mass Index Percentile 99.05% 09/09/2011 7:3 1 PM EST Growth Chart: [facility] (Girls, 2- 20 Years) documented in this encounter Plan of Treatment Not on file documented as of this encounter Visit Diagnoses Not on filedocumented in this encounter Care Teams Operator Vacuum Relationship Specialty Start Date End Date Tray Fuastin MD PCP - General 01/18/21 documented as of this encounter
--- OUTSIDE RECORDS SUMMARY | 2024-11-17 17:44 | XMS_ITS | Encounter Summary ---
Author Organization [facility] Address [address] [place] [address] Care Team Providers Care Program Technician Name Role Phone Tray Faustin MD Primary Care Provider Encounter Details Date Type Department Care Team (Late st Contact Info) Description 03/20/2015 Orders Only [facility] CC AMB HISTORICAL Historical [...] Sign Reading Time Taken Comments Blood Pressure 115/72 03/20/2015 3:18 PM EDT Pulse 95 03/20/2015 3:18 PM EDT Temperature - - Respiratory Rate - - Oxygen Saturation - - Inhaled Oxygen Concentration - - Weight 75.8 kg (167 lb) 03/20/2015 3:18 PM EDT Height 165.1 cm (5' 5) 03/20/2015 3:18 PM EDT Body Mass Index 27.79 03/20/2015 3:18 PM EDT Body Mass Index Percentile 92.56% 03/20/2015 3:1 8 PM EDT Growth Chart: [facility] (Girls, 2- 20 Years) documented in this encounter Plan of Treatment Not on file documented as of this encounter Visit Diagnoses Not on filedocumented in this encounter Care Teams Program Technician Relationship Specialty Start Date End Date Tray Faustin MD PCP - General 01/18/21 documented as of this encounter
--- OUTSIDE RECORDS SUMMARY | 2024-11-17 17:44 | XMS_ITS | Encounter Summary ---
Author Organization Tito [facility] Address [address] [place] [address] Care Team Providers Care Core Java Software Engineer Name Role Phone Tray Faustin MD Primary Care Provider [phone] Encounter Details Date Type Department Care Team (Late st Contact Info) Description 01/02/2016 Orders Only [facility] CC AMB HISTORICAL Historical [...] Sign Reading Time Taken Comments Blood Pressure 102/58 01/02/2016 11:54 AM EST Pulse 87 01/02/2016 11:54 AM EST Temperature - - Respiratory Rate - - Oxygen Saturation - - Inhaled Oxygen Concentration - - Weight 78 kg (172 lb) 01/02/2016 11:54 AM EST Height 165.1 cm (5' 5) 01/02/2016 11:54 AM EST Body Mass Index 28.62 01/02/2016 11:54 AM EST Body Mass Index Percentile 93.15% 01/02/2016 11: 54 AM EST Growth Chart: [facility] (Girls, 2- 20 Years) documented in this encounter Plan of Treatment Not on file documented as of this encounter Visit Diagnoses Not on filedocumented in this encounter Care Teams Core Java Software Engineer Relationship Specialty Start Date End Date Tray Faustin MD PCP - General 01/18/21 documented as of this encounter
--- OUTSIDE RECORDS SUMMARY | 2024-11-17 17:44 | XMS_ITS | Encounter Summary ---
Author Organization Tito Lupillo [facility] Address [address] [place] [address] Care Team Providers Care Oil Prospecting Observer Name Role Phone Tray Faustin MD Primary Care Provider [phone] Encounter Details Date Type Department Care Team (Late st Contact Info) Description 12/22/2012 Orders Only [facility] CC AMB HISTORICAL Historical Provider, Hsp Social [...] Sign Reading Time Taken Comments Blood Pressure 110/78 12/22/2012 1:56 PM EST Pulse 101 12/22/2012 1:56 PM EST Temperature - - Respiratory Rate - - Oxygen Saturation - - Inhaled Oxygen Concentration - - Weight 82 kg (180 lb 12.8 oz) 12/22/2012 1:56 PM EST Height 165.1 cm (5' 5) 12/22/2012 1:56 PM EST Body Mass Index 30.09 12/22/2012 1:56 PM EST Body Mass Index Percentile 96.50% 12/22/2012 1:5 6 PM EST Growth Chart: [facility] (Girls, 2- 20 Years) documented in this encounter Plan of Treatment Not on file documented as of this encounter Visit Diagnoses Not on filedocumented in this encounter Care Teams Oil Prospecting Observer Relationship Specialty Start Date End Date Tray Faustin MD PCP - General 01/18/21 documented as of this encounter
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
--- OUTSIDE RECORDS SUMMARY | 2024-11-17 17:44 | XMS_ITS | Encounter Summary ---
Author Organization [facility] Address [address] [place] [address] Care Team Providers Care Roll Changer Name Role Phone Tray Faustin MD Primary Care Provider [phone] Encounter Details Date Type Department Care Team (Late st Contact Info) Description 10/22/2013 Orders Only [facility] HISTORICAL CONVERSIONS [address] [place] [id number] Historical Provider, Hsp Social History Tobacco Use Types Packs/Day Years Used Date Smoking Tobacco: Never Assessed Sex and Gender Information Value Date Recorded Sex Assigned at Female 12/25/2021 12:53 AM EST Gender Identity Female 12/25/2021 12:53 AM EST Sexual Orientation Bisexual 12/25/2021 12 :53 AM EST documented as of this encounter Last Filed Vital Signs Vital Sign Reading Time Taken Comments Blood Pressure 103/63 10/22/2013 10:14 PM EST Pulse 114 10/22/2013 10:14 PM EST Temperature - - Respiratory Rate - - Oxygen Saturation - - Inhaled Oxygen Concentration - - Weight 83.2 kg (183 lb 6.8 oz) 10/22/2013 10:12 PM EST Height - - Body Mass Index - - documented in this encounter Plan of Treatment Not on file documented as of this encounter Procedures Procedure Name Priority Date/Time Associated Diagnosis Comments CULTURE, URINE Routine 10/22/2013 10:50 PM EST documented in this encounter Results * Culture, Urine (10/22/2013 10:50 PM EST) Specimen Description URINE 10/25/2013 1:18 PM EST [facility] Special Requests NO SPECIAL REQUESTS 10/25/2013 1:18 PM EST [facility] Colonies Counted >100,000 COLONIES/mL 10/25/2013 1:18 PM EST [facility] Culture STAPHYLOCOCCUS SAPROPHYTICUS CLSI GUIDELINES DO NOT RECOMMEND REPORTING SUSCEPTIBILITIES FOR S. SAPROPHYTICUS. ORGANISM TYPICALLY RESPONDS TO AGENTS USED TO TREAT UNCOMPLICATED UTIs (E.G. NITROFURANTOIN, TMP/SMX OR A FLUOROQUINOLONE). 10/25/2013 1:18 PM EST [facility] Report Status 10/25/2013 FINAL 10/25 1:18 PM EST [facility] Urine 10/22/2013 10:5 0 PM EST 10/22/2013 11:33 PM EST Dimitris Roa MD MICROBIOLOGY - GEN ERAL ORDERABLES [facility] Naomi Leone, Community Integration Specialist [address] [place] [id number] documented in this encounter Visit Diagnoses Not on filedocumented in this encounter Care Teams Roll Changer Relationship Specialty Start Date End Date Tray Faustin MD PCP - General 01/18/21 documented as of this encounter
--- OUTSIDE RECORDS SUMMARY | 2024-11-17 17:44 | XMS_ITS | Encounter Summary ---
Author Organization Tito Lupillo [facility] Address [address] [place] [address] Care Team Providers Care Mobile Home Mechanic Name Role Phone Tray Faustin MD Primary Care Provider [phone] Encounter Details Date Type Department Care Team (Late st Contact Info) Description 02/08/2013 Orders Only [facility] AMB HISTORICAL Historical [...] Reading Time Taken Comments Blood Pressure 122/70 02/08/2013 4:00 PM EDT Pulse 98 02/08/2013 4:00 PM EDT Temperature - - Respiratory Rate - - Oxygen Saturation - - Inhaled Oxygen Concentration - - Weight 80.9 kg (178 lb 4 oz) 02/08/2013 4:00 PM EDT Height 165.1 cm (5' 5) 02/08/2013 4:00 PM EDT Body Mass Index 29.66 02/08/2013 4:00 PM EDT Body Mass Index Percentile 96.15% 02/08/2013 4:0 0 PM EDT Growth Chart: [facility] (Girls, 2- 20 Years) documented in this encounter Plan of Treatment Not on file documented as of this encounter Visit Diagnoses Not on filedocumented in this encounter Care Teams Mobile Home Mechanic Relationship Specialty Start Date End Date Tray Faustin MD PCP - General 01/18/21 documented as of this encounter
--- OUTSIDE RECORDS SUMMARY | 2024-11-17 17:44 | XMS_ITS | Encounter Summary ---
Author Organization [facility] Address [address] [place] [address] Care Team Providers Care Sports Instructor Name Role Phone Tray Faustin MD Primary Care Provider [phone] Encounter Details Date Type Department Care Team (Late st Contact Info) Description 01/22/2016 Orders Only [facility] AMB HISTORICAL Historical [...] Sign Reading Time Taken Comments Blood Pressure 110/60 01/22/2016 8:52 AM EDT Pulse 127 01/22/2016 8:52 AM EDT Temperature - - Respiratory Rate - - Oxygen Saturation - - Inhaled Oxygen Concentration - - Weight 78.9 kg (174 lb) 01/22/2016 8:52 AM EDT Height 165.1 cm (5' 5) 01/22/2016 8:52 AM EDT Body Mass Index 28.96 01/22/2016 8:52 AM EDT Body Mass Index Percentile 93.61% 01/22/2016 8:5 2 AM EDT Growth Chart: [facility] (Girls, 2- 20 Years) documented in this encounter Plan of Treatment Not on file documented as of this encounter Visit Diagnoses Not on filedocumented in this encounter Care Teams Sports Instructor Relationship Specialty Start Date End Date Tray Faustin MD PCP - General 01/18/21 documented as of this encounter
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
--- OUTSIDE RECORDS SUMMARY | 2024-11-17 17:44 | XMS_ITS | Encounter Summary ---
Author Organization [facility] Address [address] [place] [address] Care Team Providers Care Plaster Mechanic Name Role Phone Tray Faustin MD Primary Care Provider Encounter Details Date Type Department Care Team (Late st Contact Info) Description 09/23/2012 Orders Only BS CC AMB HISTORICAL Historical [...] Sign Reading Time Taken Comments Blood Pressure 118/68 09/23/2012 7:00 PM EST Pulse 74 09/23/2012 7:00 PM EST Temperature - - Respiratory Rate - - Oxygen Saturation - - Inhaled Oxygen Concentration - - Weight 81.8 kg (180 lb 6.4 oz) 09/23/2012 7:00 P M EST Height 165.1 cm (5' 5) 09/23/2012 7:00 PM EST Body Mass Index 30.02 09/23/2012 7:00 PM EST Body Mass Index Percentile 96.61% 09/23/2012 7:0 0 PM EST Growth Chart: [facility] (Girls, 2- 20 Years) documented in this encounter Plan of Treatment Not on file documented as of this encounter Visit Diagnoses Not on filedocumented in this encounter Care Teams Plaster Mechanic Relationship Specialty Start Date End Date Tray Faustin MD PCP - General 01/18/21 documented as of this encounter
--- OUTSIDE RECORDS SUMMARY | 2024-11-17 17:44 | XMS_ITS | Encounter Summary ---
Author Organization [facility]ito [facility] Address [address] [place] [address] Care Team Providers Care Dredge Pump Operator Name Role Phone Unavailable Primary Care Provider Unavailabl e Encounter Details Date Type Department Care Team (Late st Contact Info) Description 12/22/2019 9:32 AM EST - 12/22/2019 11:59 PM EST Hospital Encounter [facility] [address] [address] [place] [address] [place] [address] Less than 8 weeks gestation of ; Generalized abdominal pain Social History Tobacco Use Types Packs/Day Years Used Date Smoking Tobacco: Never Assessed Sex and Gender Information Value Date Recorded Sex Assigned at Female 12/25/2021 12:53 AM EST Gender Identity Female 12/25/2021 12:53 AM EST Sexual Orientation Bisexual 12/25/2021 12 :53 AM EST documented as of this encounter Progress Notes * Historical Provider, [facility] - 12/22/2019 5:39 PM EST Outbound call to patient at [phone] verified , informed her of ultra sound results patient verbalized understanding. * Jeffy Singleton - 12/22/2019 11:56 AM EST Please call patient to let her know that her abdominal ultrasound showed fatty liver, but was otherwise normal documented in this encounter Plan of Treatment Not on file documented as of this encounter Procedures Procedure Name Priority Date/Time Associated Diagnosis Comments US ABDOMEN COMPLETE Routine 12/22/2019 1 0:05 AM EST documented in this encounter Results * US ABDOMEN COMPLETE (12/22/2019 10:05 AM EST) Anatomical Region Laterality Modality Abdomen Other Impressions 12/22/2019 11:32 AM EST IMPRESSION: Hepatic steatosis. No other acute abnormality in the abdomen. Narrative 12/22/2019 11:32 AM EST EXAM: ??US ABD COMP INDICATION: . Generalized abdominal pain. COMPARISON: ??Ultrasound 09/10/2019 TECHNIQUE: ??Complete abdominal ultrasound. FINDINGS: Liver: Length: 16.2 cm, normal. Diffusely echogenic with sparing adjacent to the gallbladder in keeping with hepatic steatosis. ??No focal liver lesion. Main portal vein flow: Toward the liver. Fluid: No ascites. Aorta and IVC: No abdominal aortic aneurysm. IVC is patent. Gallbladder: Within normal limits. No gallstones. No gallbladder wall thickening or pericholecystic fluid. Bile ducts: There is no intra or extrahepatic biliary ductal dilatation. ??The common bile duct measures 4 mm. Pancreas: The visualized portions are within normal limits. Kidneys: Right length: 9.8 cm. Left length: 9.2 cm. No hydronephrosis. Spleen: 10.0 cm in length, which is within normal limits. Procedure Note Wiliam Raymond MD - 02/13/2022 EXAM: US ABD COMP INDICATION: . Generalized abdominal pain. COMPARISON: Ultrasound 09/10/2019 TECHNIQUE: Complete abdominal ultrasound. FINDINGS: Liver: Length: 16.2 cm, normal. Diffusely echogenic with sparing adjacentto the gallbladder in keeping with hepatic steatosis. No focal liver lesion. Main portal vein flow: Toward the liver. Fluid: No ascites. Aorta and IVC: No abdominal aortic aneurysm. IVC is patent. Gallbladder: Within normal limits. No gallstones. No gallbladder wallthickening or pericholecystic fluid. Bile ducts: There is no intra or extrahepatic biliary ductal dilatation.The common bile duct measures 4 mm. Pancreas: The visualized portions are within normal limits. Kidneys: Right length: 9.8 cm. Left length: 9.2 cm. No hydronephrosis. Spleen: 10.0 cm in length, which is within normal limits. IMPRESSION: IMPRESSION: Hepatic steatosis. No other acute abnormality in the abdomen. Jeffy Singleton MD [facility] US ORDERABLES documented in this encounter Visit Diagnoses Diagnosis Less than 8 weeks gestation of state, incidental Generalized abdominal pain Abdominal pain, generalized documented in this encounter
--- OUTSIDE RECORDS SUMMARY | 2024-11-17 17:44 | XMS_ITS | Encounter Summary ---
Author Organization [facility] Address [address] [place] [address] Care Team Providers Care Terminal Block Assembler Name Role Phone Tray Faustin MD Primary Care Provider [phone] Encounter Details Date Type Department Care Team (Late st Contact Info) Description 09/25/2011 Orders Only [facility] CC AMB HISTORICAL Historical Provider, Hsp [...] Sign Reading Time Taken Comments Blood Pressure 126/64 09/25/2011 12:18 PM EST Pulse 78 09/25/2011 12:18 PM EST Temperature - - Respiratory Rate - - Oxygen Saturation - - Inhaled Oxygen Concentration - - Weight 90.9 kg (200 lb 6.4 oz) 09/25/20 11 12:18 PM EST 200.4lbs Height 163.8 cm (5' 4.5) 09/25/2011 12 :18 PM EST 64.5in Body Mass Index 33.87 09/25/2011 12:18 PM EST Body Mass Index Percentile 99.02% 09/25 12:18 PM EST Growth Chart: [facility] (Girls, 2- 20 Years) documented in this encounter Plan of Treatment Not on file documented as of this encounter Visit Diagnoses Not on filedocumented in this encounter Care Teams Terminal Block Assembler Relationship Specialty Start Date End Date Tray Faustin MD PCP - General 01/18/21 documented as of this encounter
--- OUTSIDE RECORDS SUMMARY | 2024-11-17 17:44 | XMS_ITS | Encounter Summary ---
Author Organization [facility] Address [address] [place] [address] Care Team Providers Care Hanger Off Name Role Phone Tray Faustin MD Primary Care Provider [phone] Encounter Details Date Type Department Care Team (Late st Contact Info) Description 07/14/2013 Orders Only BS CC AMB HISTORICAL Historical [...] Sign Reading Time Taken Comments Blood Pressure 109/64 07/14/2013 9:15 AM EDT Pulse 78 07/14/2013 9:15 AM EDT Temperature - - Respiratory Rate - - Oxygen Saturation - - Inhaled Oxygen Concentration - - Weight 84.3 kg (185 lb 12.8 oz) 07/14/2013 9:15 AM EDT Height 166.4 cm (5' 5.5) 07/14/2013 9:15 AM EDT Body Mass Index 30.45 07/14/2013 9:15 AM EDT Body Mass Index Percentile 96.39% 07/14/2013 9:1 5 AM EDT Growth Chart: [facility] (Girls, 2- 20 Years) documented in this encounter Plan of Treatment Not on file documented as of this encounter Visit Diagnoses Not on filedocumented in this encounter Care Teams Hanger Off Relationship Specialty Start Date End Date Tray Faustin MD PCP - General 01/18/21 documented as of this encounter
--- OUTSIDE RECORDS SUMMARY | 2024-11-17 17:44 | XMS_ITS | Encounter Summary ---
Author Organization Tito Hilliardmiguelito [facility] Address [address] [email or web address] [address] Care Team Providers Care Animal Chiropractor Name Role Phone Unavailable Primary Care Provider Unavailabl e Encounter Details Date Type Department Care Team (Late st Contact Info) Description 09/10/2019 8:47 AM EST - 09/10/2019 11:59 PM EST Hospital Encounter [facility] HISTORICAL CONVERSIONS [address] [place] [id number] [place] [address] [place] [address] Unspecified abdominal pain; Nausea with vomiting, unspecified Social History Tobacco Use Types Packs/Day [...] Priority Date/Time Associated Diagnosis Comments US ABDOMEN LIMITED Routine 09/10/2019 9: 43 AM EST documented in this encounter Results * US ABDOMEN LIMITED (09/10/2019 9:43 AM EST) Anatomical Region Laterality Modality Abdomen Other Impressions 09/12/2019 8:10 AM EST IMPRESSION: ?? 1. No visible abnormality. Narrative 09/12/2019 8:10 AM EST ULTRASOUND OF ABDOMEN, 09/10/2019 9:43 AM INDICATION: Unspecified abdominal pain Additional history: Recurrent epigastric pain with emesis. COMPARISON: Ultrasound the abdomen, 02/10/2013 . TECHNIQUE: Multiplanar real-time ultrasonography of the abdomen using fernández-scale imaging, supplemented by color and spectral Doppler. . FINDINGS: Liver: Normal contour without visible focal lesions. The liver echotexture is normal. Antegrade flow in the portal vein with normal waveform. Gallbladder: No stones, wall thickening or pericholecystic fluid collections. No sonographic Medina's sign. Biliary: No intrahepatic ductal dilatation. Common bile duct measures 0.3 cm. Pancreas: The visualized pancreas is unremarkable. Right kidney: Normal size, contour and echogenicity without masses, stones, perinephric fluid, or hydronephrosis. Right kidney measures 10.7 cm. ?? Vascular: The proximal aorta and IVC are unremarkable. . Procedure Note Ector Hernandez MD - 02/16/2022 ULTRASOUND OF ABDOMEN, 09/10/2019 9:43 AM INDICATION: Unspecified abdominal pain Additional history: Recurrent epigastric pain with emesis. COMPARISON: Ultrasound the abdomen, 02/10/2013 . TECHNIQUE: Multiplanar real-time ultrasonography of the abdomen usinggray-scale imaging, supplemented by color and spectral Doppler. . FINDINGS: Liver: Normal contour without visible focal lesions. The liver echotextureis normal. Antegrade flow in the portal vein with normal waveform. Gallbladder: No stones, wall thickening or pericholecystic fluidcollections. No sonographic Medina's sign. Biliary: No intrahepatic ductal dilatation. Common bile duct measures 0.3cm. Pancreas: The visualized pancreas is unremarkable. Right kidney: Normal size, contour and echogenicity without masses,stones, perinephric fluid, or hydronephrosis. Right kidney measures 10.7 cm. Vascular: The proximal aorta and IVC are unremarkable. . IMPRESSION: IMPRESSION: 1. No visible abnormality. Dariela Dick MD IMG US ORDERABL ES documented in this encounter Visit Diagnoses Diagnosis Unspecified abdominal pain Nausea with vomiting, unspecified documented in this encounter
--- OUTSIDE RECORDS SUMMARY | 2024-11-17 17:44 | XMS_ITS | Encounter Summary ---
Author Organization Tito Lupillo [facility] Address [address] [place] [address] Care Team Providers Care Spray Painter Helper Name Role Phone Tray Faustin MD Primary Care Provider Encounter Details Date Type Department Care Team (Late st Contact Info) Description 03/16/2012 Orders Only [facility] CC AMB HISTORICAL Historical Provider, Hsp [...] Sign Reading Time Taken Comments Blood Pressure 118/64 03/16/2012 12:36 PM EDT Pulse 81 03/16/2012 12:36 PM EDT Temperature - - Respiratory Rate - - Oxygen Saturation - - Inhaled Oxygen Concentration - - Weight 84.3 kg (185 lb 12.8 oz) 012 12:36 PM EDT 185.8 Height - - Body Mass Index - - documented in this encounter Plan of Treatment Not on file documented as of this encounter Visit Diagnoses Not on filedocumented in this encounter Care Teams Spray Painter Helper Relationship Specialty Start Date End Date Tray Faustin MD PCP - General 01/18/21 documented as of this encounter
--- OUTSIDE RECORDS SUMMARY | 2024-11-17 17:44 | XMS_ITS | Encounter Summary ---
Author Organization [facility]ito [facility]up[facility] Address [address] [employer] [address] Care Team Providers Care Color Checker Name Role Phone Tray Faustin MD Primary Care Provider [phone] Encounter Details Date Type Department Care Team (Late st Contact Info) Description 02/24/2012 Orders Only [facility] CC AMB HISTORICAL Historical [...] Sign Reading Time Taken Comments Blood Pressure 98/58 02/24/2012 4:15 PM EDT Pulse 80 02/24/2012 4:15 PM EDT Temperature - - Respiratory Rate - - Oxygen Saturation - - Inhaled Oxygen Concentration - - Weight 83.7 kg (184 lb 9.6 oz) 02/24/2012 4:15 P M EDT Height 165.1 cm (5' 5) 02/24/2012 4:15 PM EDT Body Mass Index 30.72 02/24/2012 4:15 PM EDT Body Mass Index Percentile 97.40% 02/24/2012 4:1 5 PM EDT Growth Chart: [facility] (Girls, 2- 20 Years) documented in this encounter Plan of Treatment Not on file documented as of this encounter Visit Diagnoses Not on filedocumented in this encounter Care Teams Color Checker Relationship Specialty Start Date End Date Tray Faustin MD PCP - General 01/18/21 documented as of this encounter
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
--- OUTSIDE RECORDS SUMMARY | 2024-11-17 17:44 | XMS_ITS | Encounter Summary ---
Author Organization Tito Lupillo [facility] Address [address] [place] [address] Care Team Providers Care Product Craftsman Name Role Phone Tray Faustin MD Primary Care Provider [phone] Encounter Details Date Type Department Care Team (Late st Contact Info) Description 08/12/2011 Orders Only BS CC AMB HISTORICAL Historical [...] Sign Reading Time Taken Comments Blood Pressure 102/60 08/12/2011 7:57 PM EDT Pulse - - Temperature - - Respiratory Rate - - Oxygen Saturation - - Inhaled Oxygen Concentration - - Weight 88 kg (194 lb) 08/12/2011 7:57 PM EDT Height 163.2 cm (5' 4.25) 08/12/2011 7:57 PM ED T Body Mass Index 33.04 08/12/2011 7:57 PM EDT Body Mass Index Percentile 98.80% 08/12/2011 7:5 7 PM EDT Growth Chart: [facility] (Girls, 2- 20 Years) documented in this encounter Plan of Treatment Not on file documented as of this encounter Visit Diagnoses Not on filedocumented in this encounter Care Teams Product Craftsman Relationship Specialty Start Date End Date Tray Faustin MD PCP - General 01/18/21 documented as of this encounter
--- OUTSIDE RECORDS SUMMARY | 2024-11-17 17:44 | XMS_ITS | Encounter Summary ---
Author Organization Tito Lupillo [facility] Address [address] [place] [address] Care Team Providers Care Jewel Cupping Machine Operator Name Role Phone Tray Faustin MD Primary Care Provider [phone] Encounter Details Date Type Department Care Team (Late st Contact Info) Description 01/22/2012 Orders Only [facility] CC AMB HISTORICAL Historical Provider, Hsp Social [...] Sign Reading Time Taken Comments Blood Pressure 100/58 01/22/2012 1:56 PM EDT Pulse - - Temperature - - Respiratory Rate - - Oxygen Saturation - - Inhaled Oxygen Concentration - - Weight 86.2 kg (190 lb) 01/22/2012 1:56 PM EDT Height 165.1 cm (5' 5) 01/22/2012 1:56 PM EDT Body Mass Index 31.62 01/22/2012 1:56 PM EDT Body Mass Index Percentile 97.94% 01/22/2012 1:5 6 PM EDT Growth Chart: [facility] (Girls, 2- 20 Years) documented in this encounter Plan of Treatment Not on file documented as of this encounter Visit Diagnoses Not on filedocumented in this encounter Care Teams Jewel Cupping Machine Operator Relationship Specialty Start Date End Date Tray Faustin MD PCP - General 01/18/21 documented as of this encounter
--- OUTSIDE RECORDS SUMMARY | 2024-11-17 17:44 | XMS_ITS | Encounter Summary ---
Author Organization Tito Lupillo [facility] Address [address] [place] [address] Care Team Providers Care Numerical Control Lathe Operator Name Role Phone Tray Faustin MD Primary Care Provider [phone] Encounter Details Date Type Department Care Team (Late st Contact Info) Description 07/25/2015 Orders Only [facility] CC AMB HISTORICAL Historical [...] Sign Reading Time Taken Comments Blood Pressure 113/64 07/25/2015 3:01 PM EDT Pulse 94 07/25/2015 3:01 PM EDT Temperature - - Respiratory Rate - - Oxygen Saturation - - Inhaled Oxygen Concentration - - Weight 77.1 kg (170 lb) 07/25/2015 3:01 PM EDT Height 165.1 cm (5' 5) 07/25/2015 3:01 PM EDT Body Mass Index 28.29 07/25/2015 3:01 PM EDT Body Mass Index Percentile 93.05% 07/25/2015 3:0 1 PM EDT Growth Chart: [facility] (Girls, 2- 20 Years) documented in this encounter Plan of Treatment Not on file documented as of this encounter Visit Diagnoses Not on filedocumented in this encounter Care Teams Numerical Control Lathe Operator Relationship Specialty Start Date End Date Tray Faustin MD PCP - General 01/18/21 documented as of this encounter
--- OUTSIDE RECORDS SUMMARY | 2024-11-17 17:44 | XMS_ITS | Encounter Summary ---
Author Organization [facility] Address [address] [place] [address] Care Team Providers Care Plate Glass Grinder Name Role Phone Tray Faustin MD Primary Care Provider [phone] Encounter Details Date Type Department Care Team (Late st Contact Info) Description 08/30/2012 Orders Only [facility] CC AMB HISTORICAL Historical Provider, Hsp Social [...] Sign Reading Time Taken Comments Blood Pressure 110/70 08/30/2012 10:46 AM EST Pulse 78 08/30/2012 10:46 AM EST Temperature - - Respiratory Rate - - Oxygen Saturation - - Inhaled Oxygen Concentration - - Weight 80.3 kg (177 lb) 08/30/2012 10:46 AM EST Height 165.1 cm (5' 5) 08/30/2012 10:46 AM EST Body Mass Index 29.45 08/30/2012 10:46 AM EST Body Mass Index Percentile 96.29% 08/30/2012 10: 46 AM EST Growth Chart: [facility] (Girls, 2- 20 Years) documented in this encounter Plan of Treatment Not on file documented as of this encounter Visit Diagnoses Not on filedocumented in this encounter Care Teams Plate Glass Grinder Relationship Specialty Start Date End Date Tray Faustin MD PCP - General 01/18/21 documented as of this encounter
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
--- OUTSIDE RECORDS SUMMARY | 2024-11-17 17:44 | XMS_ITS | Encounter Summary ---
Author Organization [facility] Address [address] [place] [address] Care Team Providers Care Sheep Farm Manager Name Role Phone Unavailable Primary Care Provider Unavailabl e Encounter Details Date Type Department Care Team (Late st Contact Info) Description 12/22/2019 9:37 AM EST - 12/22/2019 11:59 PM EST Hospital Encounter [facility] [address] [address] [place] [address] [place] [address] Less than 8 weeks gestation of Social History Tobacco Use Types Packs/Day Years Used Date Smoking Tobacco: Never Assessed Sex and Gender Information Value Date Recorded Sex Assigned at Female 12/25/2021 12:53 AM EST Gender Identity Female 12/25/2021 12:53 AM EST Sexual Orientation Bisexual 12/25/2021 12 :53 AM EST documented as of this encounter Progress Notes * Jeffy Singleton - 12/22/2019 11:54 AM EST Please call patient to let he know that her ultrasound showed an early in the uterus. A small bleed/bruise next to the sac was noted. This Is a common finding in early . Patient should call with any spotting or bleeding. She should follow up with OBGYN as scheduled. documented in this encounter Plan of Treatment Not on file documented as of this encounter Procedures Procedure Name Priority Date/Time Associated Diagnosis Comments US OB TRANSVAGINAL Routine 12/22/2019 10 :47 AM EST documented in this encounter Results * US OB TRANSVAGINAL (12/22/2019 10:47 AM EST) Anatomical Region Laterality Modality Abdomen, Pelvis Other Impressions 12/22/2019 11:39 AM EST IMPRESSION: The endometrium demonstrates an oval gestational sac containing a yolk sac with an estimated gestational age of 5 weeks 1 day. No definite pole is identified, but this may be due to early gestational age of a viable intrauterine . However, follow-up ultrasound and hCG are recommended. A small subchorionic hemorrhage measures 5 mm. Narrative 12/22/2019 11:39 AM EST EXAM: US OB EVAL SINGLE GESTATION LESS THAN 14 WEEKS INDICATION: . Generalized abdominal pain. COMPARISON: Pelvic ultrasound 10/22/2013. TECHNIQUE: Transabdominal and transvaginal ultrasound of the pelvis. hCG: Not available FINDINGS: ?? Transabdominal: The uterus measures: 7.8 x 3.8 x 4.6 cm. The endometrium contains an oval gestational sac measures 1.6 x 1.6 x 1.3 cm with an estimated gestational age of 5 weeks 5 days. No definite yolk sac or pole is identified. The placenta is not seen due to early gestation. The right ovary measures 4.0 x 2.9 x 2.3 cm with a normal appearance and normal flow. The left ovary is not seen due to bowel gas. Transvaginal: The uterus measures: 8.3 x 3.8 x 5.1 cm. The examination demonstrates a single viable intrauterine with a gestational sac measuring 1.3 x 1.1 x 1.0 cm with an estimated gestational age of 5 weeks 1 day. It contains a yolk sac but patent definitive pole is not identified. The placenta is not seen due to early gestation. A small subchorionic hemorrhage measures 5 x 4 x 4 mm. The right ovary measures 4.2 x 3.3 x 3.8 cm and the left ovary measures 3.3 x 2.7 x 1.7 cm. A right ovarian corpus luteum or hemorrhagic follicle measures 2.6 cm. A nonspecific calcification in the right ovary measures 9 mm. The ovaries are otherwise normal in appearance with normal flow. Trace pelvic free fluid is likely physiologic. Procedure Note Wiliam Raymond MD - 02/16/2022 EXAM: US OB EVAL SINGLE GESTATION LESS THAN 14 WEEKS INDICATION: . Generalized abdominal pain. COMPARISON: Pelvic ultrasound 10/22/2013. TECHNIQUE: Transabdominal and transvaginal ultrasound of the pelvis. hCG: Not available FINDINGS: Transabdominal: The uterus measures: 7.8 x 3.8 x 4.6 cm. The endometrium contains an oval gestational sac measures 1.6 x 1.6 x 1.3 cm with anestimated gestational age of 5 weeks 5 days. No definite yolk sac or pole is identified. The placenta is not seen due to early gestation. The right ovary measures 4.0 x 2.9 x 2.3 cm with a normal appearance andnormal flow. The left ovary is not seen due to bowel gas. Transvaginal: The uterus measures: 8.3 x 3.8 x 5.1 cm. The examination demonstrates a single viable intrauterine witha gestational sac measuring 1.3 x 1.1 x 1.0 cm with an estimated gestationalage of 5 weeks 1 day. It contains a yolk sac but patent definitive poleis not identified. The placenta is not seen due to early gestation. A small subchorionic hemorrhage measures 5 x 4 x 4 mm. The right ovary measures 4.2 x 3.3 x 3.8 cm and the left ovary measures3.3 x 2.7 x 1.7 cm. A right ovarian corpus luteum or hemorrhagic folliclemeasures 2.6 cm. A nonspecific calcification in the right ovary measures 9 mm. Theovaries are otherwise normal in appearance with normal flow. Trace pelvic free fluid is likely physiologic. IMPRESSION: IMPRESSION: The endometrium demonstrates an oval gestational sac containing a yolk sacwith an estimated gestational age of 5 weeks 1 day. No definite pole is identified, but this may be due to early gestational age of a viable intrauterine . However, follow-up ultrasound and hCG arerecommended. A small subchorionic hemorrhage measures 5 mm. Jeffy Singleton MD IMG US ORDERABLES documented in this encounter Visit Diagnoses Diagnosis Less than 8 weeks gestation of state, incidental documented in this encounter
--- OUTSIDE RECORDS SUMMARY | 2024-11-17 17:44 | XMS_ITS | Encounter Summary ---
Author Organization Tito Lupillo [facility] Address [address] [facility] [place] [address] Care Team Providers Care Canteen Manager Name Role Phone Tray Faustin MD Primary Care Provider [phone] Encounter Details Date Type Department Care Team (Late st Contact Info) Description 08/07/2011 Orders Only [facility] HISTORICAL CONVERSIONS [address] [place] [id number] Historical Provider, Hsp Social History Tobacco Use Types Packs/Day Years Used Date Smoking Tobacco: Never Assessed Sex and Gender Information Value Date Recorded Sex Assigned at Female 12/25/2021 12:53 AM EST Gender Identity Female 12/25/2021 12:53 AM EST Sexual Orientation Bisexual 12/25/2021 12 :53 AM EST documented as of this encounter Last Filed Vital Signs Vital Sign Reading Time Taken Comments Blood Pressure 125/74 08/07/2011 4:21 PM EDT Pulse 98 08/07/2011 4:21 PM EDT Temperature - - Respiratory Rate - - Oxygen Saturation - - Inhaled Oxygen Concentration - - Weight 87.6 kg (193 lb 3.2 oz) 08/07/2011 4:21 PM EDT mom refused to have pt weighed Height - - Body Mass Index - - documented in this encounter Plan of Treatment Not on file documented as of this encounter Visit Diagnoses Not on filedocumented in this encounter Care Teams Canteen Manager Relationship Specialty Start Date End Date Tray Faustin MD PCP - General 01/18/21 documented as of this encounter
--- OUTSIDE RECORDS SUMMARY | 2024-11-17 17:44 | XMS_ITS | Encounter Summary ---
Author Organization [facility]ito [facility] Address [address] [place] [address] Care Team Providers Care Legal Services Manager Name Role Phone Tray Faustin MD Primary Care Provider Encounter Details Date Type Department Care Team (Late st Contact Info) Description 09/16/2019 Office Visit [facility] [address] [place], [place] [id number] Debra Espinoza APRN - BALE BREAKER OPERATOR [address] [place] [address] Acute upper respiratory infection, unspecified (Primary Dx) Social History Tobacco Use Types Packs/Day Years Used Date Smoking Tobacco: Never Assessed Sex and Gender Information Value Date Recorded Sex Assigned at Female 12/25/2021 12:53 AM EST Gender Identity Female 12/25/2021 12:53 AM EST Sexual Orientation Bisexual 12/25/2021 12 :53 AM EST documented as of this encounter Progress Notes * Debra Espinoza, MATEO - BALE BREAKER OPERATOR - 09/16/2019 9:30 AM EST Assessment/Plan: Diagnoses and all orders for this visit: 1. Viral URI Treat symptomatically including fluids and rest. Avoid decongestants if a history of high blood pressure. Work excuse given today. Start Nasacort otc. Follow-up and Dispositions ?? Return if symptoms worsen or fail to improve. Discussed expected course/resolution/complications of diagnosis in detail with patient. Medication risks/benefits/costs/interactions/alternatives discussed with patient. Pt was given after visit summary which includes diagnoses, current medications & vitals. Pt expressed understanding with the diagnosis and plan Subjective: Jesu Faustin is a 19 y.o. female who presents for had concerns including Flu Like Symptoms (greenish wit blood tinged ); Sore Throat; Ear Fullness; and Generalized Body Aches (x 2 days). Upper Respiratory Infection Patient complains of symptoms of a URI. Symptoms include congestion, sore throat, fever and cough. Onset of symptoms was 2 days ago, unchanged since that time. She also c/o achiness for the past 2 days . She is drinking plenty of fluids.. Evaluation to date: none. Treatment to date: OTC products, which have been not very effective. Patient Active Problem List Diagnosis Code ??? IBS (irritable bowel syndrome) K58.9 ??? Irregular periods N92.6 ??? Vision blurred H53.8 ??? Cough variant asthma J45.991 ??? AR (allergic rhinitis) J30.9 ??? ADHD (attention deficit hyperactivity disorder) F90.9 ??? Marijuana use, continuous F12.90 ??? Mood disorder (HCC) F39 ??? Birthmarks, pigmented Q82.5 ??? Dermatofibroma D23.9 ??? Fatigue R53.83 ??? Bandemia D72.825 ??? Gastroesophageal reflux disease K21.9 ??? Optic neuropathy H46.9 ??? Obesity, Class I, BMI 30-34.9 E66.9 ??? Tobacco abuse Z72.0 Current Outpatient Medications Medication Sig Dispense Refill ??? ibuprofen (MOTRIN) 200 mg tablet Take by mouth. No Known Allergies ROS: Review of Systems Constitutional: Positive for chills, fever and malaise/fatigue. HENT: Positive for sore throat. Negative for congestion, ear pain and sinus pain. Respiratory: Positive for cough and sputum production. Negative for shortness of breath and wheezing. Cardiovascular: Negative for chest pain. Neurological: Negative for seizures. Endo/Heme/Allergies: Negative for environmental allergies. Objective: Visit Vitals BP 105/74 Pulse (!) 107 Temp 98.1 ??F (36.7 ??C) (Oral) Resp 18 Ht 5' 5 (1.651 m) Wt 189 lb 9.6 oz (86 kg) LMP 08/26/2019 SpO2 97% BMI 31.55 kg/m?? Vitals and Nurse Documentation reviewed. Physical Exam Constitutional: General: She is not in acute distress. HENT: Right Ear: No middle ear effusion. Tympanic membrane is not erythematous or bulging. Left Ear: No middle ear effusion. Tympanic membrane is not erythematous or bulging. Nose: No rhinorrhea. Right Sinus: No maxillary sinus tenderness or frontal sinus tenderness. Left Sinus: No maxillary sinus tenderness or frontal sinus tenderness. Mouth/Throat: Pharynx: No oropharyngeal exudate or posterior oropharyngeal erythema. Eyes: General: Lids are normal. Cardiovascular: Heart sounds: S1 normal and S2 normal. No murmur. No friction rub. No gallop. Pulmonary: Breath sounds: Normal breath sounds. No wheezing. Lymphadenopathy: Cervical: No cervical adenopathy. Skin: General: Skin is warm and dry. Psychiatric: Mood and Affect: Mood and affect normal. * Historical Provider, [facility] - 09/16/2019 9:30 AM EST Chief Complaint Patient presents with ??? Flu Like Symptoms greenish wit blood tinged ??? Sore Throat ??? Ear Fullness ??? Generalized Body Aches x 2 days 1. Have you been to the ER, urgent care clinic since your last visit? Hospitalized since your last visit?No 2. Have you seen or consulted any other health care providers outside of the [facility] since your last visit? Include any pap smears or colon screening. No * Historical Provider, [facility] - 09/16/2019 9:30 AM EST Chief Complaint Patient presents with ??? Flu Like Symptoms greenish wit blood tinged ??? Sore Throat ??? Ear Fullness ??? Generalized Body Aches x 2 days 1. Have you been to the ER, urgent care clinic since your last visit? Hospitalized since your last visit?No 2. Have you seen or consulted any other health care providers outside of the [facility] since your last visit? Include any pap smears or colon screening. No documented in this encounter Plan of Treatment Not on file documented as of this encounter Visit Diagnoses Diagnosis Acute upper respiratory infection, unspecified- Primary documented in this encounter Care Teams Legal Services Manager Relationship Specialty Start Date End Date Tray Faustin MD PCP - General 01/18/21 documented as of this encounter
--- OUTSIDE RECORDS SUMMARY | 2024-11-17 17:44 | XMS_ITS | Encounter Summary ---
Author Organization [facility]ito Wesley [facility] Address [address] [place] [address] Care Team Providers Care Tape Sewing Machine Operator Name Role Phone Unavailable Primary Care Provider Unavailabl e Encounter Details Date Type Department Care Team (Late st Contact Info) Description 12/22/2019 9:38 AM EST - 12/22/2019 11:59 PM EST Hospital Encounter [facility] [id number] [id number] [place] [address] [place] [address] Less than 8 weeks gestation [...] this encounter Progress Notes * Historical Provider, [facility] - 12/22/2019 5:38 PM EST Outbound call to patient at [phone] verified , informed her of ultra sound results patient verbalized understanding. * Jeffy Singleton - 12/22/2019 11:52 AM EST Please call patient to let [...] Priority Date/Time Associated Diagnosis Comments US OB LESS THAN 14 WEEKS SINGLE OR FIRST GESTATION Routine 12/22/2019 10:47 AM EST documented in this encounter Results * US OB LESS THAN 14 WEEKS SINGLE OR FIRST GESTATION (12/22/2019 10:47 AM EST) Anatomical Region Laterality Modality Abdomen Other Impressions 12/22/2019 11:39 AM EST IMPRESSION: [...]
--- OUTSIDE RECORDS SUMMARY | 2024-11-17 17:44 | XMS_ITS | Encounter Summary ---
Author Organization [facility] Address [address] [place] [address] Care Team Providers Care Packaging Sales Representative Name Role Phone Tray Faustin MD Primary Care Provider [phone] Encounter Details Date Type Department Care Team (Late st Contact Info) Description 01/20/2013 Orders Only [facility] CC AMB HISTORICAL Historical Provider, Hsp [...] Sign Reading Time Taken Comments Blood Pressure 108/58 01/20/2013 4:56 PM EDT Pulse 96 01/20/2013 4:56 PM EDT Temperature - - Respiratory Rate - - Oxygen Saturation - - Inhaled Oxygen Concentration - - Weight 81.6 kg (180 lb) 01/20/2013 4:56 PM EDT Height 165.1 cm (5' 5) 01/20/2013 4:56 PM EDT Body Mass Index 29.95 01/20/2013 4:56 PM EDT Body Mass Index Percentile 96.37% 01/20/2013 4:5 6 PM EDT Growth Chart: [facility] (Girls, 2- 20 Years) documented in this encounter Plan of Treatment Not on file documented as of this encounter Procedures Procedure Name Priority Date/Time Associated Diagnosis Comments CULTURE, URINE Routine 01/20/2013 6:21 PM EDT documented in this encounter Results * Culture, Urine (01/20/2013 6:21 PM EDT) Urine Culture, Routine ESCHERICHIA COLI 01/23/2013 7:37 AM EDT [facility] 1 Comment: Escherichia coli Identified by an automated biochemical system. 25,000-50,000 colony forming units per mL Urine Culture, Routine Mixed urogenital manuel 25,000-50,000 colony forming units per mL 01/23/2013 7:37 AM EDT [facility] 1 Urine (Urine) 01/20/2013 6:2 1 PM EDT 01/20/2013 10:13 PM EDT Narrative Organism Antibiotic Method Susceptibility Escherichia coli amoxicillin-clavulanate CULTURE, URIN E S: Sensitive Escherichia coli ampicillin CULTURE, URINE S: Sensitive Escherichia coli ceFAZolin CULTURE, URINE S: Sensitive Escherichia coli cefepime CULTURE, URINE S: Sensitive Escherichia coli cefTRIAXone CULTURE, URINE S: Sensitive Escherichia coli cefuroxime CULTURE, URINE S: Sensitive Escherichia coli cephalothin CULTURE, URINE S: Sensitive Escherichia coli ciprofloxacin CULTURE, URINE S: Sensitive Escherichia coli Confirmatory Extende d Spectrum Beta-Lactamase CULTURE, URINE N: Negative Escherichia coli ertapenem CULTURE, URINE S: Sensitive Escherichia coli gentamicin CULTURE, URINE S: Sensitive Escherichia coli imipenem CULTURE, URINE S: Sensitive Escherichia coli levofloxacin CULTURE, URINE S: Sensitive Escherichia coli nitrofurantoin CULTURE, URINE S: Sensitive Escherichia coli piperacillin CULTURE, URINE S: Sensitive Escherichia coli tetracycline CULTURE, URINE S: Sensitive Escherichia coli tobramycin CULTURE, URINE S: Sensitive Escherichia coli trimethoprim-sulfamethoxazole CULTURE , URINE S: Sensitive Comment: Performed At: [address] [facility] [address] ??[id number] Yariel Engle [place] [id number] Comment:R30.0^Dysuria^ICD-10 -CM^^^^^^Dysuria Luc Alvarenga MD MICROBIOLOGY - GENER AL ORDERABLES [facility] 1 documented in this encounter Visit Diagnoses Not on filedocumented in this encounter Care Teams Packaging Sales Representative Relationship Specialty Start Date End Date Tray Faustin MD PCP - General 01/18/21 documented as of this encounter
--- OUTSIDE RECORDS SUMMARY | 2024-11-17 17:44 | XMS_ITS | Encounter Summary ---
Author Organization [facility] Address [address] [place] [address] Care Team Providers Care Physical Therapy Teacher Name Role Phone Tray Faustin MD Primary Care Provider Encounter Details Date Type Department Care Team (Late st Contact Info) Description 04/23/2019 Office Visit [facility] [address] [place] [address] Tray Faustin MD [address] [place], [place] [id number] Nausea with vomiting, unspecified (Primary Dx); Polycystic ovarian syndrome Social History Tobacco Use Types Packs/Day Years Used Date Smoking Tobacco: Never Assessed Sex and Gender Information Value Date Recorded Sex Assigned at Female 12/25/2021 12:53 AM EST Gender Identity Female 12/25/2021 12:53 AM EST Sexual Orientation Bisexual 12/25/2021 12 :53 AM EST documented as of this encounter Progress Notes * Historical Provider, [facility] - 04/23/2019 9:40 AM EDT Jesu Faustin is a 18 y.o. female Chief Complaint Patient presents with ??? Abdominal Pain nausea, vomiting, fatigue x 2-3 days 1. Have you been to the ER, urgent care clinic since your last visit? Hospitalized since your last visit? no 2. Have you seen or consulted any other health care providers outside of the [facility] since your last visit? Include any pap smears or colon screening. no * Tray Faustin MD - 04/23/2019 9:40 AM EDT Patient Name: Jesu Faustin SUBJECTIVE Jesu Faustin is a 18 y.o. female who presents with the following: Reports 2-day history of morning nausea, vomiting, and lower abdominal pain. Was previously on OCPsfor PCOS but her [facility] has not filled it recently due to insurance issues. Has been without it for the past month. Had a light period about 1 week ago. Smokes both tobacco (1 cigarette/day) and marijuana. Patient denies history of CAD, VTE, CVA, migraine with aura, breast cancer, or liver problems. Review of Systems Constitutional: Negative for fever, malaise/fatigue and weight loss. Respiratory: Negative for cough, hemoptysis, shortness of breath and wheezing. Cardiovascular: Negative for chest pain, palpitations, leg swelling and PND. Gastrointestinal: Positive for abdominal pain, nausea and vomiting. Negative for constipation and diarrhea. Genitourinary: Negative for dysuria, flank pain, frequency, hematuria and urgency. The patient's medications, allergies, past medical history, surgical history, family history and social history were reviewed and updated where appropriate. Prior to Admission medications Medication Sig Start Date End Date Taking? Authorizing Provider lamoTRIgine (LAMICTAL) 25 mg tablet Take 2 Tabs by mouth daily. 02/03/19 Dariela Dick MD raNITIdine (ZANTAC) 150 mg tablet Take 1 Tab by mouth two (2) times daily as needed for Indigestion. For GERD 12/09/18 Dariela Dick MD BELEN 3-0.03 mg tab TK 1 T PO ONCE DAILY 11/17/18 Provider, Historical No Known Allergies OBJECTIVE Visit Vitals BP 102/70 (BP 1 Location: Right arm, BP Patient Position: Sitting) Pulse (!) 104 Temp 98.9 ??F (37.2 ??C) (Oral) Resp 16 Ht 5' 5 (1.651 m) Wt 190 lb 12.8 oz (86.5 kg) LMP 04/11/2019 SpO2 98% BMI 31.75 kg/m?? Physical Exam Constitutional: She is oriented to person, place, and time and well-developed, well-nourished, and in no distress. No distress. HENT: Head: Normocephalic. Right Ear: External ear normal. Left Ear: External ear normal. Eyes: Pupils are equal, round, and reactive to light. Conjunctivae and EOM are normal. Cardiovascular: Normal rate, regular rhythm, normal heart sounds and intact distal pulses. Exam reveals no gallop and no friction rub. No murmur heard. Pulmonary/Chest: Effort normal and breath sounds normal. No respiratory distress. She has no wheezes. She has no rales. Abdominal: Soft. Bowel sounds are normal. She exhibits no distension. There is tenderness (mild TTPin lower abdominal quadrants). There is no rebound and no guarding. Musculoskeletal: Normal range of motion. Neurological: She is alert and oriented to person, place, and time. Gait normal. Skin: Skin is warm and dry. She is not diaphoretic. Psychiatric: Mood, memory, affect and judgment normal. Nursing note and vitals reviewed. ASSESSMENT AND PLAN Jesu Faustin is a 18 y.o. female who presents today for: 1. Nausea and vomiting, intractability of vomiting not specified, unspecified vomiting type UPT and UA negative. Discussed that symptoms may be still due to early , side effects fromd/c OCPs, viral gastroenteritis. Recommend supportive therapy with prn Zofran. Reviewed signs and symptoms that would indicate a worsening medical condition which would require immediate evaluation and treatment; patient expressed understanding of plan. - AMB POC URINE DIP STICK MANUAL W/O MICRO CHEMSTRIP-10 - AMB POC URINE TEST, VISUAL COLOR COMPARISON - ondansetron (ZOFRAN ODT) 4 mg disintegrating tablet; Take 1 Tab by mouth every eight (8) hours asneeded for Nausea. Dispense: 15 Tab; Refill: 0 2. PCOS (polycystic ovarian syndrome) Would wait until next period until restarting OCPs. Pt can take home UPTs in the meantime since herperiod is not regular. Would schedule follow up with PCP in 3 weeks to discuss OCPs; encourage her to quit smoking in the interim. There are no discontinued medications. Follow-up and Dispositions ?? Return in about 3 weeks (around 05/14/2019) for medication check with PCP Kapil. Medication risks/benefits/costs/interactions/alternatives discussed with patient. Advised patient to call back or return to office if symptoms worsen/change/persist. If patient cannot reach us or should anything more severe/urgent arise he/she should proceed directly to the nearest emergency department. Discussed expected course/resolution/complications of diagnosis in detail with patient. Patient given a written after visit summary which includes his/her diagnoses, current medications and vitals. Patient expressed understanding with the diagnosis and plan. Tray Faustin M.D. documented in this encounter Plan of Treatment Not on file documented as of this encounter Procedures Procedure Name Priority Date/Time Associated Diagnosis Comments AMB POC URINE TEST, VISUAL COLOR COMPARISON Routine 04/23/2019 10:00 AM EDT AMB POC URINE DIP STICK MANUAL W/O MICRO CHEMSTRIP-10 Routine 04/23/2019 10:00 AM EDT documented in this encounter Results * AMB POC URINE DIP STICK MANUAL W/O MICRO CHEMSTRIP-10 (04/23/2019 10:00 AM EDT) Color (UA POC) Yellow 04/23/2019 10:04 AM EDT [facility] Clarity (UA POC) Clear 04/23/2019 10:04 AM EDT [facility] Specific [place], Urine, POC 1.020 1.001 - 1.035 NA 04/23/2019 10:04 AM EDT [facility] pH, Urine, POC 5.5 4.6 - 8.0 NA 04/23/2019 10:04 AM EDT [facility] Leukocyte Esterase, Urine, POC Negative Negative 04/23/2019 10:04 AM EDT [facility] Nitrite, Urine, POC Negative Negative 04/23/2019 10:04 AM EDT [facility] Protein, Urine, POC Negative Negative 04/23/2019 10:04 AM EDT [facility] Glucose, Urine, POC Negative Negative mg/dL 04/23/2019 10:04 AM EDT [facility] Ketones, Urine, POC Negative Negative 04/23/2019 10:04 AM EDT [facility] Urobilinogen, POC 0.2 mg/dL 0.2 - 1 04/23/2019 10:04 AM EDT [facility] Bilirubin, Urine, POC Negative Negative 04/23/2019 10:04 AM EDT [facility] Blood (UA POC) Negative Negative 04/23/2019 10:04 AM EDT [facility] Urine 04/23/2019 10:0 0 AM EDT Tray Faustin MD POINT OF CARE TEST O [facility] * AMB POC URINE TEST, VISUAL COLOR COMPARISON (04/23/2019 10:00 AM EDT) Valid Internal Control, POC Yes 04/23/2019 10:04 AM EDT [facility] HCG, , Urine, POC Negative Negative 04/23/2019 10:04 AM EDT [facility] Urine (Urine) 04/23/2019 10: 00 AM EDT Tray Faustin MD POINT OF CARE TEST O [facility] documented in this encounter Visit Diagnoses Diagnosis Nausea with vomiting, unspecified- Primary Polycystic ovarian syndrome Polycystic ovaries documented in this encounter Care Teams Physical Therapy Teacher Relationship Specialty Start Date End Date Tray Faustin MD PCP - General 01/18/21 documented as of this encounter
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
--- OUTSIDE RECORDS SUMMARY | 2024-11-17 17:44 | XMS_ITS | Encounter Summary ---
Author Organization [facility] Address [address] [place] [address] Care Team Providers Care Maintenance Planner Name Role Phone Tray Faustin MD Primary Care Provider [phone] Encounter Details Date Type Department Care Team (Late st Contact Info) Description 07/21/2014 Orders Only BS CC AMB HISTORICAL Historical [...] Sign Reading Time Taken Comments Blood Pressure 116/65 07/21/2014 3:57 PM EDT Pulse 69 07/21/2014 3:57 PM EDT Temperature - - Respiratory Rate - - Oxygen Saturation - - Inhaled Oxygen Concentration - - Weight 81.1 kg (178 lb 12.8 oz) 07/21/2014 3:57 PM EDT Height 165.1 cm (5' 5) 07/21/2014 3:57 PM EDT Body Mass Index 29.75 07/21/2014 3:57 PM EDT Body Mass Index Percentile 95.44% 07/21/2014 3:5 7 PM EDT Growth Chart: [facility] (Girls, 2- 20 Years) documented in this encounter Plan of Treatment Not on file documented as of this encounter Visit Diagnoses Not on filedocumented in this encounter Care Teams Maintenance Planner Relationship Specialty Start Date End Date Tray Faustin MD PCP - General 01/18/21 documented as of this encounter
--- OUTSIDE RECORDS SUMMARY | 2024-11-17 17:44 | XMS_ITS | Encounter Summary ---
Author Organization Tito Lupillo [employer] [facility] Address [address] [place] [address] Care Team Providers Care Roof Mechanic Name Role Phone Tray Faustin MD Primary Care Provider Encounter Details Date Type Department Care Team (Late st Contact Info) Description 08/05/2011 Orders Only BS CC AMB HISTORICAL Historical [...] Sign Reading Time Taken Comments Blood Pressure 102/56 08/05/2011 4:07 PM EDT Pulse - - Temperature - - Respiratory Rate - - Oxygen Saturation - - Inhaled Oxygen Concentration - - Weight 87.9 kg (193 lb 12.8 oz) 08/05/2011 4:07 PM EDT Height - - Body Mass Index - - documented in this encounter Plan of Treatment Not on file documented as of this encounter Visit Diagnoses Not on filedocumented in this encounter Care Teams Roof Mechanic Relationship Specialty Start Date End Date Tray Faustin MD PCP - General 01/18/21 documented as of this encounter
--- OUTSIDE RECORDS SUMMARY | 2024-11-17 17:44 | XMS_ITS | Encounter Summary ---
Author Organization Tito [facility] Address [address] [place] [address] Care Team Providers Care Chinese Teacher Name Role Phone Tray Faustin MD Primary Care Provider [phone] Encounter Details Date Type Department Care Team (Late st Contact Info) Description 07/19/2013 Orders Only [facility] CC AMB HISTORICAL Historical Provider, [...] Sign Reading Time Taken Comments Blood Pressure 122/64 07/19/2013 3:33 PM EDT Pulse 89 07/19/2013 3:33 PM EDT Temperature - - Respiratory Rate - - Oxygen Saturation - - Inhaled Oxygen Concentration - - Weight 84.4 kg (186 lb) 07/19/2013 3:33 PM EDT Height 166.4 cm (5' 5.5) 07/19/2013 3:33 PM EDT Body Mass Index 30.48 07/19/2013 3:33 PM EDT Body Mass Index Percentile 96.40% 07/19/2013 3:3 3 PM EDT Growth Chart: [facility] (Girls, 2- 20 Years) documented in this encounter Plan of Treatment Not on file documented as of this encounter Procedures Procedure Name Priority Date/Time Associated Diagnosis Comments CULTURE, URINE Routine 07/19/2013 5:05 PM EDT documented in this encounter Results * Culture, Urine (07/19/2013 5:05 PM EDT) Urine Culture, Routine No growth 07/21/2013 9:37 AM EDT [facility] Comment: Performed At: [address] [facility] [address] ??[id number] Radha Mancilla MD [id number] Urine 07/19/2013 5:05 PM EDT 07/19/2013 10:24 PM EDT Marian Child APRN - OPERATOR ENGINEER MICROBIOLOGY - G ENERAL ORDERABLES [facility] 1 documented in this encounter Visit Diagnoses Not on filedocumented in this encounter Care Teams Chinese Teacher Relationship Specialty Start Date End Date Tray Faustin MD PCP - General 01/18/21 documented as of this encounter
--- OUTSIDE RECORDS SUMMARY | 2024-11-17 17:44 | XMS_ITS | Encounter Summary ---
Author Organization Tito Lupillo [employer] [facility] Address [address] [place] [address] Care Team Providers Care Director Of Email Marketing Name Role Phone Tray Fuastin MD Primary Care Provider [phone] Encounter Details Date Type Department Care Team (Late st Contact Info) Description 12/02/2011 Orders Only [facility] CC AMB HISTORICAL Historical [...] Sign Reading Time Taken Comments Blood Pressure 122/84 12/02/2011 2:19 PM EST Pulse 73 12/02/2011 2:19 PM EST Temperature - - Respiratory Rate - - Oxygen Saturation - - Inhaled Oxygen Concentration - - Weight 88 kg (194 lb) 12/02/2011 2:19 PM EST 194 lb Height - - Body Mass Index - - documented in this encounter Plan of Treatment Not on file documented as of this encounter Visit Diagnoses Not on filedocumented in this encounter Care Teams Director Of Email Marketing Relationship Specialty Start Date End Date Tray Faustin MD PCP - General 01/18/21 documented as of this encounter
--- OUTSIDE RECORDS SUMMARY | 2024-11-17 17:44 | XMS_ITS | Encounter Summary ---
Author Organization Tito Lupillo [employer] [facility] Address [address] [place] [address] Care Team Providers Care Clinical Phlebotomist Name Role Phone Tray Faustin MD Primary Care Provider Encounter Details Date Type Department Care Team (Late st Contact Info) Description 10/15/2012 Orders Only [facility] CC AMB HISTORICAL Historical Provider, Hsp [...] Reading Time Taken Comments Blood Pressure 110/70 10/15/2012 3:45 PM EST Pulse 90 10/15/2012 3:45 PM EST Temperature - - Respiratory Rate - - Oxygen Saturation - - Inhaled Oxygen Concentration - - Weight 80.3 kg (177 lb) 10/15/2012 3:45 PM EST Height 165.1 cm (5' 5) 10/15/2012 3:45 PM EST Body Mass Index 29.45 10/15/2012 3:45 PM EST Body Mass Index Percentile 96.22% 10/15/2012 3:4 5 PM EST Growth Chart: [facility] (Girls, 2- 20 Years) documented in this encounter Plan of Treatment Not on file documented as of this encounter Visit Diagnoses Not on filedocumented in this encounter Care Teams Clinical Phlebotomist Relationship Specialty Start Date End Date Tray Faustin MD PCP - General 01/18/21 documented as of this encounter
--- OUTSIDE RECORDS SUMMARY | 2024-11-17 17:44 | XMS_ITS | Encounter Summary ---
Author Organization [facility] [employer] [facility] Address [address] [place] [address] Care Team Providers Care Microbiology Supervisor Name Role Phone Tray Faustin MD Primary Care Provider Encounter Details Date Type Department Care Team (Late st Contact Info) Description 12/12/2019 Office Visit [facility] [address] [place] [address] [place] [address] [place] [address] Less than 8 weeks gestation of (Primary Dx); Generalized abdominal pain; Other general symptoms and signs Social History Tobacco Use Types Packs/Day Years Used Date Smoking Tobacco: Never Assessed Sex and Gender Information Value Date Recorded Sex Assigned at Female 12/25/2021 12:53 AM EST Gender Identity Female 12/25/2021 12:53 AM EST Sexual Orientation Bisexual 12/25/2021 12 :53 AM EST documented as of this encounter Progress Notes * Historical Provider, [facility] - 12/12/2019 1:30 PM EST Chief Complaint Patient presents with ??? Diarrhea Patient is 3 weeks ??? Nausea ??? Generalized Body Aches 1. Have you been to the ER, urgent care clinic since your last visit? Hospitalized since your last visit?No 2. Have you seen or consulted any other health care providers outside of the [facility] since your last visit? Include any pap smears or colon screening. No * Jeffy Singleton - 12/12/2019 1:30 PM EST Called patient and discussed lab results. She reports that her abdominal pain is improving. * Jeffy Singleton - 12/12/2019 1:30 PM EST Attempted to call patient regarding lab results. No answer. Left VM * Jeffy Singleton - 12/12/2019 1:30 PM EST Images from the original note were not included. Progress Notes by Jeffy Singleton MD at 12/12/19 1330 Author: Jeffy Singleton MD Service: -- Author Type: Physician Filed: 12/12/19 2244 Encounter Date: 12/12/2019 Status: Signed Cardiopulmonary Technologist Chief: Jeffy Singleton MD (Physician) Jesu Faustin 19 y.o. female 2000 [address] [id number] [facility] Encounter Date: 12/12/2019 Established Patient Visit Note: Jeffy Singleton MD Reason for Appointment: Chief Complaint Patient presents with ? Diarrhea Patient is 3 weeks ? Nausea ? Generalized Body Aches History of Present Illness: History provided by patient Jesu Faustin is a 19 y.o. female who presents to clinic today for for diarrhea and body aches in setting of recent diagnosis. The patient was recently seen in clinic on 11/27/2019 for upper respiratory symptoms and missed period. Flu test at that time was negative. OTC meds were recommended for URI. test was faintly positive, and patient was advised to stop smoking and startPNV. A quant HCG was ordered, which was elevated at 33. The patient was contacted and advised to follow up with a wash oil cooler operator within one month. Again she was advised to stop smoking and start PNV. Today she reports that she has not started PNVs, but she does report that she is working to quit smoking. Additionally she reports that she has been having body aches and GI symptoms for the the last3 days. She reports that she feels like she has been hit by a bus. She endorses body aches, stomachaches, feeling nauseous, and frequent diarrhea (reports having 4 episodes of diarrhea today- wateryin appearance). She also endorses having chills, night sweats, bloating, and fatigue. She denies any vomiting. She reports that her boyfriend had similar symptoms a few weeks ago. She denies any recent travel. With regard to course, she reports that it is about the same. She reports having history of IBS as a child. Chart review shows that patient was last evaluated for diarrhea in Sep, 2019. She had a RUQ US performed in Aug, 2019 that did not show any visible abnormality. She was placed on protonix, HIDA was ordered, and she was referred to gastroenterology. Patient was referred to OBGYN to r/o pelvic etiology, but she has not yet scheduled this appointment. GI symptoms at that time were felt to be relatedto IBS, and short term imodium was recommended. Review of Systems Const: positive for fatigue and body aches Cardio: negative for CP or palpitations Resp: negative for dyspnea or wheezing Allergies: Patient has no known allergies. Medications: (Updated to reflect final medication list after visit) Current Outpatient Medications: ? vit-iron fumarate-fa 27 mg iron- 0.8 mg tab tablet, Take 1 Tab by mouth daily., Disp: 90Tab, Rfl: 3 History Patient Care Team: Dariela Dick MD as PCP - General (Family Practice) Dariela Dick MD as PCP - [facility] Empaneled Provider Past Medical History: she has a past medical history of Constipation, Cough variant asthma (08/13/2011), Respiratory abnormalities, Second hand smoke exposure, Urinary tract infection, and Vision decreased. She also has no past medical history of Bronchitis chronic or Overbite. Past Surgical History: she has no past surgical history on file. Family Medical History: family history includes MS in her maternal uncle; No Known Problems in her brother, brother, brother, brother, father, maternal grandfather, maternal grandmother, paternal grandfather, paternal grandmother, and sister; Other in her mother. Social History: she reports that she has quit smoking. She has never used smokeless tobacco. She reports previous drug use. Drug: Marijuana. She reports that she does not drink alcohol. Health Maintenance Due Topic Date Due ? PAP AKA CERVICAL CYTOLOGY 2019 ? Influenza Age 9 to Adult 05/26/2019 Objective: Visit Vitals BP 118/74 (BP 1 Location: Right arm, BP Patient Position: Sitting) Pulse 85 Temp 98 ??F (36.7 ??C) (Oral) Resp 18 Ht 5' 5 (1.651 m) Wt 209 lb (94.8 kg) LMP 08/26/2019 SpO2 99% BMI 34.78 kg/m?? Wt Readings from Last 3 Encounters: 12/12/19 209 lb (94.8 kg) 12/07/19 205 lb 12.8 oz (93.4 kg) 10/06/19 198 lb (89.8 kg) Physical Exam Vitals signs and nursing note reviewed. Constitutional: General: She is not in acute distress. Appearance: Normal appearance. HENT: Head: Normocephalic and atraumatic. Nose: Nose normal. Mouth/Throat: Mouth: Mucous membranes are moist. Eyes: Extraocular Movements: Extraocular movements intact. Conjunctiva/sclera: Conjunctivae normal. Pupils: Pupils are equal, round, and reactive to light. Neck: Musculoskeletal: Normal range of motion and neck supple. No neck rigidity or muscular tenderness. Cardiovascular: Rate and Rhythm: Normal rate and regular rhythm. Pulses: Normal pulses. Heart sounds: Normal heart sounds. No murmur. No friction rub. No gallop. Pulmonary: Effort: Pulmonary effort is normal. No respiratory distress. Breath sounds: Normal breath sounds. No wheezing, rhonchi or rales. Abdominal: General: Bowel sounds are normal. There is no distension or abdominal bruit. Palpations: Abdomen is soft. There is no shifting dullness, fluid wave, hepatomegaly or splenomegaly. Tenderness: There is abdominal tenderness (generalized, but worse over RUQ). There is no right CVA tenderness, left CVA tenderness, guarding or rebound. Negative signs include McBurney's sign. Musculoskeletal: Normal range of motion. Lymphadenopathy: Cervical: No cervical adenopathy. Skin : General: Skin is warm. Coloration: Skin is not jaundiced. Neurological: General: No focal deficit present. Mental Status: She is alert and oriented to person, place, and time. Mental status is at baseline. Cranial Nerves: Cranial nerves are intact. Motor: Motor function is intact. Coordination: Coordination is intact. Psychiatric : Mood and Affect: Mood normal. Behavior: Behavior normal. Thought Content: Thought content normal. Judgment: Judgment normal. Recent Results (from the past 24 hour(s)) AMB POC URINALYSIS DIP STICK AUTO W/O MICRO Collection Time: 12/12/19 2:27 PM Result Value Ref Range Color (UA POC) Yellow Clarity (UA POC) Clear Glucose (UA POC) Negative Negative Bilirubin (UA POC) Negative Negative Ketones (UA POC) Negative Negative Specific gravity (UA POC) 1.030 1.001 - 1.035 Blood (UA POC) Negative Negative pH (UA POC) 5.5 4.6 - 8.0 Protein (UA POC) Negative Negative Urobilinogen (UA POC) 0.2 mg/dL 0.2 - 1 Nitrites (UA POC) Negative Negative Leukocyte esterase (UA POC) Negative Negative AMB POC RAPID INFLUENZA TEST Collection Time: 12/12/19 3:05 PM Result Value Ref Range VALID INTERNAL CONTROL POC Yes [facility] Influenza test Negative Negative Assessment & Plan: Diagnoses and all orders for this visit: 1. Less than 8 weeks gestation of : Patient with beta HCG of 33 on recent labs collected 12/08/2019. Will recheck for appropriate doubling. Patient previously provided with referral to OBGYN,but today she reports that she does not have an OBGYN. Called during patient visit and scheduled new OB appointment with [facility]. Given abdominal pain in setting of positive HCG, will obtain US to evaluate further. Discussed red flag symptoms and reasons to call or go to ED - REFERRAL TO OBSTETRICS AND GYNECOLOGY - AMB POC URINALYSIS DIP STICK AUTO W/O MICRO - BETA HCG, QT - US PREG UTS < 14 WKS SNGL; Future - US ABD COMP; Future 2. Generalized abdominal pain: Acute on Chronic, now in setting of positive beta HCG. Will obtain labs and US to evaluate further. No red flag symptoms and no peritoneal signs on exam today, but discussed red flag symptoms and reasons to call or go to ED. - METABOLIC PANEL, COMPREHENSIVE - CBC WITH AUTOMATED DIFF - LIPASE - BETA HCG, QT - US PREG UTS < 14 WKS SNGL; Future - US ABD COMP; Future 3. Flu-like symptoms: flu test negative - AMB POC RAPID INFLUENZA TEST I have discussed the diagnosis with the patient and the intended plan as seen in the above orders. The patient has received an after-visit summary along with patient information handout. I have discussed medication side effects and warnings with the patient as well. Dispostion Follow-up and Dispositions ?? Return in about 4 days (around 12/16/2019). Jeffy Singleton MD documented in this encounter Plan of Treatment Not on file documented as of this encounter Procedures Procedure Name Priority Date/Time Associated Diagnosis Comments CBC WITH AUTO DIFFERENTIAL Routine 12/12/2019 3:11 PM EST LIPASE Routine 12/12/2019 3:11 PM EST COMPREHENSIVE METABOLIC PANEL Routine 12/12/2019 3:11 PM EST BETA HCG, QT Routine 12/12/2019 3:07 PM EST AMB POC RAPID INFLUENZA TEST Routine 12/12/2019 3:05 PM EST AMB POC URINALYSIS DIP STICK AUTO W/O MICRO Routine 12/12/2019 2:27 PM EST documented in this encounter Results * (ABNORMAL) CBC with Auto Differential (12/12/2019 3:11 PM EST) WBC 11.9(H) 3.4 - 10.8 x10E3/uL 12/13/2019 8:36 AM EST [facility] RBC 4.33 3.77 - 5.28 x10E6/uL 12/13/2019 8:36 AM EST [facility] 1 Hemoglobin 12.4 11.1 - 15.9 g/dL 12/13/2019 8:36 AM EST [facility] 1 Hematocrit 37.2 34.0 - 46.6 % 12/13/2019 8:36 AM EST [facility] 1 MCV 86 79 - 97 fL 12/13/2019 8:36 AM EST [facility] 1 MCH 28.6 26.6 - 33.0 pg 12/13/2019 8:36 AM EST [facility] 1 MCHC 33.3 31.5 - 35.7 g/dL 12/13/2019 8:36 AM EST [facility] 1 RDW 14.1 11.7 - 15.4 % 12/13/2019 8:36 AM EST [facility] 1 Platelets 298 150 - 450 x10E3/uL 12/13/2019 8:36 AM EST [facility] 1 Neutrophils % 63 Not Estab. % 12/13/2019 8:36 AM EST [facility] 1 Lymphocytes % 30 Not Estab. % 12/13/2019 8:36 AM EST [facility] 1 Monocytes % 6 Not Estab. % 12/13/2019 8:36 AM EST [facility] 1 Eosinophils % 1 Not Estab. % 12/13/2019 8:36 AM EST [facility] 1 Basophils % 0 Not Estab. % 12/13/2019 8:36 AM EST [facility] 1 Neutrophils Absolute 7.3(H) 1.4 - 7.0 x10E3/uL 12/13/2019 8:36 AM EST [facility] 1 Lymphocytes Absolute 3.6(H) 0.7 - 3.1 x10E3/uL 12/13/2019 8:36 AM EST [facility] 1 Monocytes Absolute 0.7 0.1 - 0.9 x10E3/uL 12/13/2019 8:36 AM EST [facility] 1 Eosinophils Absolute 0.2 0.0 - 0.4 x10E3/uL 12/13/2019 8:36 AM EST [facility] 1 Basophils Absolute 0.0 0.0 - 0.2 x10E3/uL 12/13/2019 8:36 AM EST [facility] 1 Immature Granulocytes % 0 Not Estab. % 12/13/2019 8:36 AM EST [facility] 1 Granulocyte Absolute Count 0.0 0.0 - 0.1 x10E3/uL 12/13/2019 8:36 AM EST [facility] 1 Whole Blood 12/12/2019 3:11 PM EST 12/12/2019 Jeffy Singleton MD HEMATOLOGY ORDERABLE S [facility] * Comprehensive Metabolic Panel (12/12/2019 3:11 PM EST) [facility] Glucose 97 65 - 99 mg/dL 12/13/2019 8:36 AM EST [facility] 1 BUN 9 6 - 20 mg/dL 12/13/2019 8:36 AM EST [facility] 1 Creatinine 0.80 0.57 - 1.00 mg/dL 12/13/2019 8:36 AM EST [facility] 1 eGFR NON-AA 106 >59 mL/min/1.7 3 12/13/2019 8:36 AM EST [facility] 1 GFR 122 >59 mL/min/1.7 3 12/13/2019 8:36 AM EST [facility] 1 BUN/Creatinine Ratio 11 9 - 23 NA 12/13/2019 8:36 AM EST [facility] 1 Sodium 141 134 - 144 mmol/L 12/13/2019 8:36 AM EST [facility] 1 Potassium 4.4 3.5 - 5.2 mmol/L 12/13/2019 8:36 AM EST [facility] 1 Chloride 106 96 - 106 mmol/L 12/13/2019 8:36 AM EST [facility] 1 CO2 22 20 - 29 mmol/L 12/13/2019 8:36 AM EST [facility] 1 Calcium 9.1 8.7 - 10.2 mg/dL 12/13/2019 8:36 AM EST [facility] 1 Total Protein 6.6 6.0 - 8.5 g/dL 12/13/2019 8:36 AM EST [facility] 1 Albumin 4.2 3.9 - 5.0 g/dL 12/13/2019 8:36 AM EST [facility] 1 Comment:Please note refere nce interval change Globulin, Total 2.4 1.5 - 4.5 g/dL 12/13/2019 8:36 AM EST [facility] 1 Albumin/Globulin Ratio 1.8 1.2 - 2.2 NA 12/13/2019 8:36 AM EST [facility] 1 Total Bilirubin <0.2 0.0 - 1.2 mg/dL 12/13/2019 8:36 AM EST [facility] 1 Alkaline Phosphatase 64 39 - 117 IU/L 12/13/2019 8:36 AM EST [facility] 1 AST 15 0 - 40 IU/L 12/13/2019 8:36 AM EST [facility] 1 ALT 17 0 - 32 IU/L 12/13/2019 8:36 AM EST [facility] 1 Serum 12/12/2019 3:11 PM EST 12/12/2019 Jeffy Singleton MD CHEMISTRY ORDERABLES Performing Organization Address [facility] de Phone Number [facility] * Lipase (12/12/2019 3:11 PM EST) Lipase 33 14 - 72 U/L 12/13/2019 8: 36 AM EST [facility] 1 Serum 12/12/2019 3:11 PM EST 12/12/2019 Jeffy Singleton MD CHEMISTRY ORDERABLES Performing Organization Address [facility] de Phone Number [facility] * BETA HCG, QT (12/12/2019 3:07 PM EST) HCG, Beta 306 mIU/mL 12/13/2019 7:36 AM EST [facility] 1 Comment: ? Female (Non-) ?0 - ? 5 ?(Postmenopausal) ??0 - ? 8 ? Female () ? Weeks of Gestation ? 3 ?6 - ?71 ? 4 ? 10 - ?? 750 ? 5 ?217 - ??7138 ? 6 ?158 - 58582 ? 7 ? 3697 -994650 ? 8 ?11338 -264868 ? 9 ?88186 -913376 ?10 ?48857 -767919 ?12 ?83283 -554332 ?14 ?53477 - 70595 ?15 ?39981 - 95119 ?16 ? 9040 - 81469 ?17 ? 8175 - 07646 ?18 ? 8099 - 78728 Maral ECLIA methodology Serum/plasma 12/12/2019 3:07 PM EST 12/12/2019 Jeffy Singleton MD CHEMISTRY ORDERABLES Performing Organization Address City/[facility]/ZIP Co de Phone Number [facility] * AMB POC RAPID INFLUENZA TEST (12/12/2019 3:05 PM EST) Valid Internal Control, POC Yes 12/12/2019 3:05 PM EST [facility] Influenza test Negative Negative 12/12/2019 3:05 PM EST [facility] NASOPHARYNGEAL WASHINGS / Unknown 12/12/2019 3:05 PM EST Jeffy Singleton MD POINT OF CARE TEST O RDERABLES Performing Organization Address [facility] Co de Phone Number [facility] * AMB POC URINALYSIS DIP STICK AUTO W/O MICRO (12/12/2019 2:27 PM EST) Color (UA POC) Yellow 12/12/2019 2:27 PM EST [facility] Clarity (UA POC) Clear 12/12/2019 2:27 PM EST [facility] Glucose, Urine, POC Negative Negative 12/12/2019 2:27 PM EST [facility] Bilirubin, Urine, POC Negative Negative 12/12/2019 2:27 PM EST [facility] Ketones, Urine, POC Negative Negative 12/12/2019 2:27 PM EST [facility] Specific [place], Urine, POC 1.030 1.001 - 1.035 NA 12/12/2019 2:27 PM EST [facility] Blood (UA POC) Negative Negative 12/12/2019 2:27 PM EST [facility] pH, Urine, POC 5.5 4.6 - 8.0 NA 12/12/2019 2:27 PM EST [facility] Protein, Urine, POC Negative Negative 12/12/2019 2:27 PM EST [facility] Urobilinogen, POC 0.2 mg/dL 0.2 - 1 12/12/2019 2:27 PM EST [facility] Nitrite, Urine, POC Negative Negative 12/12/2019 2:27 PM EST [facility] Leukocyte Esterase, Urine, POC Negative Negative 12/12/2019 2:27 PM EST [facility] Urine 12/12/2019 2:27 PM EST Jeffy Singleton MD POINT OF CARE TEST O RDERABLES [facility] documented in this encounter Visit Diagnoses Diagnosis Less than 8 weeks gestation of - Primary state, incidental Generalized abdominal pain Abdominal pain, generalized Other general symptoms and signs documented in this encounter Care Teams Microbiology Supervisor Relationship Specialty Start Date End Date Tray Faustin MD PCP - General 01/18/21 documented as of this encounter
--- OUTSIDE RECORDS SUMMARY | 2024-11-17 17:44 | XMS_ITS | Encounter Summary ---
Author Organization [facility] Address [address] [place] [address] Care Team Providers Care Gauge Inspector Name Role Phone Tray Faustin MD Primary Care Provider Encounter Details Date Type Department Care Team (Late st Contact Info) Description 11/17/2012 Orders Only BS CC AMB HISTORICAL Historical [...] Sign Reading Time Taken Comments Blood Pressure 106/66 11/17/2012 10:56 AM EST Pulse 93 11/17/2012 10:56 AM EST Temperature - - Respiratory Rate - - Oxygen Saturation - - Inhaled Oxygen Concentration - - Weight 79.7 kg (175 lb 9.6 oz) 11/17/19 13 10:56 AM EST Height 165.1 cm (5' 5) 11/17/2012 10:5 6 AM EST Body Mass Index 29.22 11/17/2012 10:56 AM EST Body Mass Index Percentile 96.01% 11/17 10:56 AM EST Growth Chart: [facility] (Girls, 2- 20 Years) documented in this encounter Plan of Treatment Not on file documented as of this encounter Visit Diagnoses Not on filedocumented in this encounter Care Teams Gauge Inspector Relationship Specialty Start Date End Date Tray Faustin MD PCP - General 01/18/21 documented as of this encounter
--- OUTSIDE RECORDS SUMMARY | 2024-11-17 17:44 | XMS_ITS | Encounter Summary ---
Author Organization [facility] Address [address] [place] [address] Care Team Providers Care Jig Worker Name Role Phone Tray Faustin MD Primary Care Provider [phone] Encounter Details Date Type Department Care Team (Late st Contact Info) Description 10/31/2015 Orders Only [facility] CC AMB HISTORICAL Historical Provider, Hsp [...] Sign Reading Time Taken Comments Blood Pressure 96/59 10/31/2015 10:26 AM EST Pulse 95 10/31/2015 10:26 AM EST Temperature - - Respiratory Rate - - Oxygen Saturation - - Inhaled Oxygen Concentration - - Weight 77.6 kg (171 lb) 10/31/2015 10:26 AM EST Height 165.1 cm (5' 5) 10/31/2015 10:26 AM EST Body Mass Index 28.46 10/31/2015 10:26 AM EST Body Mass Index Percentile 93.06% 10/31/2015 10: 26 AM EST Growth Chart: CDC (Girls, 2- 20 Years) documented in this encounter Plan of Treatment Not on file documented as of this encounter Procedures Procedure Name Priority Date/Time Associated Diagnosis Comments HIV 1/2 AB, BY IMMUNOBLOT Routine 10/31/2015 10:58 AM EST RPR Routine 10/31/2015 10:58 AM EST documented in this encounter Results * HIV 1/2 AB, BY IMMUNOBLOT (10/31/2015 10:58 AM EST) HIV 1/O/2 Abs-Index Value <1.00 <1.00 11/02/2015 10:35 PM EST [facility] Comment:Index Value: Specime n reactivity relative to the negative cutoff. HIV 1/O/2 Abs, Qual Non Reactive Non Reactive 11/02/2015 10:35 PM EST [facility] 1 Blood 10/31/2015 10:5 8 AM EST 10/31/2015 4:49 PM EST Barbara [employer] CHEMISTRY ORDERABLES Performing Organization Address City/[facility] Co de Phone Number [facility] 1 * RPR (10/31/2015 10:58 AM EST) RPR Non Reactive Non Reactive 11/02/2015 10:35 PM EST [facility] 1 Blood 10/31/2015 10:5 8 AM EST 10/31/2015 4:49 PM EST Barbara El [employer] HOU[employer] CHEMISTRY ORDERABLES Performing Organization Address City/[facility]/ZIP Co de Phone Number [facility] 1 documented in this encounter Visit Diagnoses Not on filedocumented in this encounter Care Teams Jig Worker Relationship Specialty Start Date End Date Tray Faustin MD PCP - General 01/18/21 documented as of this encounter
--- OUTSIDE RECORDS SUMMARY | 2024-11-17 17:45 | XMS_ITS | Encounter Summary ---
Author Organization [facility] Address [address] [place] [address] Care Team Providers Care Er Nurse Name Role Phone Tray Faustin MD Primary Care Provider [phone] Encounter Details Date Type Department Care Team (Late st Contact Info) Description 03/04/2011 Orders Only BS CC AMB HISTORICAL Historical [...] - Inhaled Oxygen Concentration - - Weight 90.1 kg (198 lb 9.6 oz) 03/04/2011 5:39 P M EDT Height 169.5 cm (5' 6.75) 03/04/2011 5:39 PM ED T Body Mass Index 31.34 03/04/2011 5:39 PM EDT Body Mass Index Percentile 98.35% 03/04/2011 5:3 9 PM EDT Growth Chart: CDC (Girls, 2- 20 Years) documented in this encounter Plan of Treatment Not on file documented as of this encounter Visit Diagnoses Not on filedocumented in this encounter Care Teams Er Nurse Relationship Specialty Start Date End Date Tray Faustin MD [phone] (work) PCP - General 01/18/21 documented as of this encounter
--- OUTSIDE RECORDS SUMMARY | 2024-11-17 17:45 | XMS_ITS | Encounter Summary ---
Author Organization [facility]ito Lupillo [facility] Address [address] [place] [address] Care Team Providers Care Shuttle Hand Name Role Phone Tray Faustin MD Primary Care Provider Encounter Details Date Type Department Care Team (Late st Contact Info) Description 07/08/2011 Orders Only BS CC AMB HISTORICAL Historical [...] Sign Reading Time Taken Comments Blood Pressure 110/68 07/08/2011 2:00 PM EDT Pulse - - Temperature - - Respiratory Rate - - Oxygen Saturation - - Inhaled Oxygen Concentration - - Weight 87.7 kg (193 lb 6.4 oz) 07/08/2011 2:00 P M EDT Height - - Body Mass Index - - documented in this encounter Plan of Treatment Not on file documented as of this encounter Visit Diagnoses Not on filedocumented in this encounter Care Teams Shuttle Hand Relationship Specialty Start Date End Date Tray Faustin MD PCP - General 01/18/21 documented as of this encounter
--- OUTSIDE RECORDS SUMMARY | 2024-11-17 17:45 | XMS_ITS | Encounter Summary ---
Author Organization [facility]illiardmiguelito [facility] Address [address] [place] [address] Care Team Providers Care Corporate Real Estate Manager Name Role Phone Tray Faustin MD Primary Care Provider [phone] Encounter Details Date Type Department Care Team (Late st Contact Info) Description 02/12/2011 Orders Only [facility] HISTORICAL CONVERSIONS [address] [place] [id number] Historical Provider, Hsp Social History Tobacco Use Types Packs/Day Years Used Date Smoking Tobacco: Never Assessed Sex and Gender Information Value Date Recorded Sex Assigned at Female 12/25/2021 12:53 AM EST Gender Identity Female 12/25/2021 12:53 AM EST Sexual Orientation Bisexual 12/25/2021 12 :53 AM EST documented as of this encounter Last Filed Vital Signs Vital Sign Reading Time Taken Comments Blood Pressure 114/63 02/12/2011 11:08 PM EDT Pulse 85 02/12/2011 11:08 PM EDT Temperature - - Respiratory Rate - - Oxygen Saturation - - Inhaled Oxygen Concentration - - Weight 88.3 kg (194 lb 10.7 oz) 02/12/2011 9:37 PM EDT Height 167.6 cm (5' 6) 02/12/2011 9:37 PM EDT Body Mass Index 31.42 02/12/2011 9:37 PM EDT Body Mass Index Percentile 98.42% 02/12/2011 9:3 7 PM EDT Growth Chart: CDC (Girls, 2- 20 Years) documented in this encounter Plan of Treatment Not on file documented as of this encounter Visit Diagnoses Not on filedocumented in this encounter Care Teams Corporate Real Estate Manager Relationship Specialty Start Date End Date Tray Faustin MD PCP - General 01/18/21 documented as of this encounter
--- OUTSIDE RECORDS SUMMARY | 2024-11-17 17:45 | XMS_ITS | Encounter Summary ---
Author Organization [facility] Address [address] [place] [address] Care Team Providers Care Speed Belt Sander Name Role Phone Tray Faustin MD Primary Care Provider [phone] Encounter Details Date Type Department Care Team (Late st Contact Info) Description 05/26/2011 Orders Only BS CC AMB HISTORICAL Historical [...] Reading Time Taken Comments Blood Pressure 118/64 05/26/2011 2:07 PM EDT Pulse - - Temperature - - Respiratory Rate - - Oxygen Saturation - - Inhaled Oxygen Concentration - - Weight 85.5 kg (188 lb 9.6 oz) 05/26/2011 2:07 P M EDT Height 163.2 cm (5' 4.25) 05/26/2011 2:07 PM ED T Body Mass Index 32.12 05/26/2011 2:07 PM EDT Body Mass Index Percentile 98.56% 05/26/2011 2:0 7 PM EDT Growth Chart: [facility] (Girls, 2- 20 Years) documented in this encounter Plan of Treatment Not on file documented as of this encounter Visit Diagnoses Not on filedocumented in this encounter Care Teams Speed Belt Sander Relationship Specialty Start Date End Date Tray Faustin MD PCP - General 01/18/21 documented as of this encounter
--- OUTSIDE RECORDS SUMMARY | 2024-11-17 17:45 | XMS_ITS | Encounter Summary ---
Author Organization Tito Lupillo [facility] Address [address] [email or web address] [address] Care Team Providers Care Acid Correction Hand Name Role Phone Tray Faustin MD Primary Care Provider [phone] Encounter Details Date Type Department Care Team (Late st Contact Info) Description 04/02/2011 Orders Only BS CC AMB HISTORICAL Historical [...] Reading Time Taken Comments Blood Pressure 110/70 04/02/2011 11:30 AM EDT Pulse - - Temperature - - Respiratory Rate - - Oxygen Saturation - - Inhaled Oxygen Concentration - - Weight 89 kg (196 lb 3.2 oz) 04/02/2011 11:30 AM EDT 196.2in Height 165.7 cm (5' 5.25) 04/02/2011 11:30 AM E DT 65.25in Body Mass Index 32.4 04/02/2011 11:30 AM EDT Body Mass Index Percentile 98.75% 04/02/2011 11: 30 AM EDT Growth Chart: [facility] (Girls, 2- 20 Years) documented in this encounter Plan of Treatment Not on file documented as of this encounter Visit Diagnoses Not on filedocumented in this encounter Care Teams Acid Correction Hand Relationship Specialty Start Date End Date Tray Faustin MD PCP - General 01/18/21 documented as of this encounter
--- OUTSIDE RECORDS SUMMARY | 2024-11-17 17:45 | XMS_ITS | Encounter Summary ---
Author Organization [facility]ito [facility]ard[facility]uel[facility] Address [address] [place] [address] Care Team Providers Care Manager Travel Name Role Phone Tray Faustin MD Primary Care Provider Encounter Details Date Type Department Care Team (Late st Contact Info) Description 03/27/2011 Orders Only [facility] CC AMB HISTORICAL Luc Alvarenga MD [address] [place] [address] Social History Tobacco Use Types Packs/Day Years [...] Associated Diagnosis Comments CELIAC ANTIBODY PROFILE Routine 03/27/2011 11:21 AM EDT documented in this encounter Results * CELIAC ANTIBODY PROFILE (03/27/2011 11:21 AM EDT) Endomysial Antibody, IgA Negative Negative 03/29/2011 11:37 AM EDT [facility] 1 t-Transglutaminase (tTG) IgA <2 0 - 3 U/mL 03/29/2011 11:37 AM EDT [facility] 1 Comment: ?Negative ?0 - ??3 ?Weak Positive ?? 4 - 10 ?Positive ? >10 Tissue Transglutaminase (tTG) has been identified as the endomysial antigen. ??Studies have demonstr- ated that endomysial IgA antibodies have over 99% specificity for gluten sensitive enteropathy. Immunoglobulin A, Qt. 172 58 - 358 mg/dL 03/29/2011 11:37 AM EDT [facility] 1 Comment: Performed At: [address] [facility] [address] ??[id number] Tanner Lars Engle MD [id number] Serum 03/27/2011 11:2 1 AM EDT 03/27/2011 7:48 PM EDT Luc Alvarenga MD CHEMISTRY ORDERABLES [facility] 1 documented in this encounter Visit Diagnoses Not on filedocumented in this encounter Care Teams Manager Travel Relationship Specialty Start Date End Date Tray Faustin MD PCP - General 01/18/21 documented as of this encounter
--- OUTSIDE RECORDS SUMMARY | 2024-11-17 17:45 | XMS_ITS | Encounter Summary ---
Author Organization [facility] Address [address] [place] [address] Care Team Providers Care Steward/[employer] Name Role Phone Tray Faustin MD Primary Care Provider [phone] Encounter Details Date Type Department Care Team (Late st Contact Info) Description 04/01/2011 Orders Only [facility] HISTORICAL CONVERSIONS [address] [place] [id number] Historical Provider, Hsp Social History Tobacco Use Types Packs/Day Years Used Date Smoking Tobacco: Never Assessed Sex and Gender Information Value Date Recorded Sex Assigned at Female 12/25/2021 12:53 AM EST Gender Identity Female 12/25/2021 12:53 AM EST Sexual Orientation Bisexual 12/25/2021 12 :53 AM EST documented as of this encounter Last Filed Vital Signs Vital Sign Reading Time Taken Comments Blood Pressure 115/55 04/01/2011 9:36 AM EDT Pulse 82 04/01/2011 9:36 AM EDT Temperature - - Respiratory Rate - - Oxygen Saturation - - Inhaled Oxygen Concentration - - Weight 88.1 kg (194 lb 3.6 oz) 04/01/2011 9:36 A M EDT Height - - Body Mass Index - - documented in this encounter Plan of Treatment Not on file documented as of this encounter Visit Diagnoses Not on filedocumented in this encounter Care Teams Steward[employer] Relationship Specialty Start Date End Date Tray Faustin MD PCP - General 01/18/21 documented as of this encounter
== END 2024-11-17 17:40 | disposition home or self-care (01) ==
LOC: ER 17:41
PROVIDERS: Emergency Provider Physician Assistant
DX: J06.9 Acute upper respiratory infection, unspecified (principal); F17.210 Nicotine dependence, cigarettes, uncomplicated
CPT/HCPCS: 81025; 87637; 93005; 94640; 99285; 71046; 93010; 99284; J7620

== ENCOUNTER 2025-02-07 04:03 | Outpatient (CLI) | payer MEDICAID, SELFPAY ==
[2025-02-07 12:44] LABS: Abs Immature Grans 0.04 10^3/uL (0.0-0.06); Absolute Basophil Count 0.05 10^3/uL (0.0-0.2); Absolute Eosinophil Count 0.22 10^3/uL (0.0-0.7); Absolute Monocyte Count 0.62 10^3/uL (0.1-0.8); Basophils % 0.4 %; Eosinophils % 1.9 %; HCT 39.5 % (36.0-46.0); HGB 12.5 g/dL (11.2-15.7); Immature Grans % 0.4 %; Lymphocytes % 26.5 %; MCH 27.5 pg (27.0-33.0); MCHC 31.6 % (32.0-36.0); MCV 87 fL (80-95); MPV 10.9 fL (8.0-11.0); Monocytes % 5.5 %; Neutrophils % 65.3 %; Platelet Count 291 10^3/uL (130-400); RBC 4.54 10^6/uL (3.93-5.22); RDW 14.2 % (11.7-14.6); RDW-SD 45.5 fL; WBC 11.33 10^3/uL (4.4-10.8)
[2025-02-07 13:15] LABS: Hemoglobin A1C 5.9 % (<5.7)
[2025-02-07 13:18] LABS: ALT 22 U/L (14-59); AST 16 U/L (15-37); Albumin 3.5 g/dL (3.4-5.0); Alkaline Phosphatase 110 U/L (46-116); Anion Gap 8.3 mmol/L (3-11); BUN 15 mg/dL (7-18); Bilirubin, Total 0.3 mg/dL (0.2-1.0); CO2 26.7 mmol/L (21.0-32.0); Calculated LDL 132 mg/dL (<100); Chloride 106 mmol/L (98-107); Cholesterol 217 mg/dL (<200); Estimated GFR 79.68 (mL/min/1.73m2); Glucose 102 mg/dL (74-106); HDL Cholesterol 44 mg/dL (>or=50); Potassium 4.1 mmol/L (3.5-5.1); Sodium 141 mmol/L (136-145); Total Protein 7.2 g/dL (6.4-8.2); Triglyceride 205 mg/dL (<150)
== END 2025-02-07 04:04 | disposition home or self-care (01) ==
LOC: LOS 04:03
PROVIDERS: PCP Nurse Practitioner Family; Visit Provider Nurse Practitioner Family
DX: O24.419 Gestational diabetes mellitus in pregnancy, unspecified control (principal); Z76.89 Persons encountering health services in other specified circumstances; F41.1 Generalized anxiety disorder; F90.9 Attention-deficit hyperactivity disorder, unspecified type; Z13.220 Encounter for screening for lipoid disorders
CPT/HCPCS: 36415; 80053; 80061; 83036; 85025

== ENCOUNTER 2025-04-19 13:30 | Outpatient (CLI) | payer MEDICAID, SELFPAY ==
[2025-04-19 14:20] LABS: Abs Immature Grans 0.03 10^3/uL (0.0-0.06); Absolute Basophil Count 0.06 10^3/uL (0.0-0.2); Absolute Eosinophil Count 0.13 10^3/uL (0.0-0.7); Absolute Lymphocyte Count 3.18 10^3/uL (1.2-3.4); Absolute Monocyte Count 0.73 10^3/uL (0.1-0.8); Basophils % 0.5 %; Eosinophils % 1.1 %; HCT 38.8 % (36.0-46.0); HGB 12.6 g/dL (11.2-15.7); Immature Grans % 0.2 %; Lymphocytes % 26.1 %; MCH 27.8 pg (27.0-33.0); MCHC 32.5 % (32.0-36.0); MCV 86 fL (80-95); Neutrophils % 66.1 %; Platelet Count 293 10^3/uL (130-400); RBC 4.54 10^6/uL (3.93-5.22); RDW 13.3 % (11.7-14.6); RDW-SD 41.8 fL
[2025-04-19 14:24] LABS: Absolute Neutrophil Count 8.06 10^3/uL (1.2-6.7)
[2025-04-19 15:33] LABS: TSH (W/Ref FT4) 1.07 uIU/mL (0.36-3.74)
[2025-04-20 09:34] LABS: FSH 7.7 mIU/mL (See Note)
[2025-04-24 17:32] LABS: Estradiol, Mass Spectrometry 159 pg/mL; Estrone 121 pg/mL
[2025-04-26 11:26] LABS: Testosterone, Bioavailable 6.7 ng/dL; Testosterone, Free 0.99 ng/dL (<0.13-1.06); Testosterone, Total 35 ng/dL (8-60)
== END 2025-04-19 13:31 | disposition home or self-care (01) ==
LOC: LBO 13:30
PROVIDERS: PCP Nurse Practitioner Family; Visit Provider Obstetrics & Gynecology
DX: D72.829 Elevated white blood cell count, unspecified (principal); E28.2 Polycystic ovarian syndrome; N93.9 Abnormal uterine and vaginal bleeding, unspecified; N91.5 Oligomenorrhea, unspecified
CPT/HCPCS: 36415; 84402; 84403; 84410; 82670; 82679; 83001; 84443; 85025